=== PATIENT | male | born 1945 | race Caucasian/White ===

== ENCOUNTER 2018-09-04 02:04 | Outpatient (CLI) | payer OTHER, SELFPAY ==
[2018-09-04 11:43] LABS: ALT 40 U/L (12-78); AST 29 U/L (15-37); Albumin 3.7 g/dL (3.4-5.0); Alkaline Phosphatase 110 U/L (46-116); Anion Gap 9.2 mmol/L (3-11); BUN 21 mg/dL (7-18); CO2 30.8 mmol/L (21.0-32.0); CREATININE 1.15 mg/dL (0.70-1.30); Chloride 103 mmol/L (98-107); Cholesterol 133 mg/dL (50-200); Glucose 110 mg/dL (70-100); HDL Cholesterol 36 mg/dL (40-60); LDL CHOLESTEROL 83 mg/dL (<100); Potassium 3.6 mmol/L (3.5-5.1); Sodium 143 mmol/L (136-145); Total Protein 6.8 g/dL (6.4-8.2); Triglyceride 105 mg/dL (30-150)
== END 2018-09-04 02:24 ==
PROVIDERS: PCP Family Medicine; Visit Provider Family Medicine
DX: I10 Essential (primary) hypertension (principal); E78.00 Pure hypercholesterolemia, unspecified
CPT/HCPCS: 36415; 80053; 80061; 83721

== ENCOUNTER 2020-01-20 03:04 | Outpatient (CLI) | payer OTHER, SELFPAY ==
[2020-01-20 12:46] LABS: ALT 33 U/L (16-63); AST 23 U/L (15-37); Albumin 3.8 g/dL (3.4-5.0); Alkaline Phosphatase 69 U/L (46-116); Anion Gap 10.8 mmol/L (3-11); BUN 21 mg/dL (7-18); Bilirubin, Total 1.1 mg/dL (0.2-1.0); CO2 29.2 mmol/L (21.0-32.0); Calculated LDL 80 mg/dL (<100); Chloride 103 mmol/L (98-107); Cholesterol 144 mg/dL (<200); Estimated GFR 59.35 (mL/min/1.73m2); Glucose 111 mg/dL (74-106); HDL Cholesterol 33 mg/dL (40-60); Potassium 3.7 mmol/L (3.5-5.1); Sodium 143 mmol/L (136-145); Total Protein 6.7 g/dL (6.4-8.2); Triglyceride 155 mg/dL (<150)
== END 2020-01-20 03:24 ==
PROVIDERS: PCP Family Medicine; Visit Provider Family Medicine
DX: E78.5 Hyperlipidemia, unspecified (principal); I10 Essential (primary) hypertension; E87.6 Hypokalemia
CPT/HCPCS: 36415; 80053; 80061

== ENCOUNTER 2020-01-24 03:18 | Outpatient (CLI) | payer OTHER, SELFPAY ==
[2020-01-24 12:47] LABS: Hemoglobin A1C 5.8 % (3.8-5.6)
[2020-01-24 13:01] LABS: TSH (W/Ref FT4) 3.81 uIU/mL (0.36-3.74); Vitamin B12 301 pg/mL (193-986)
[2020-01-27 09:12] LABS: PSA, Diagnostic 1.4 ng/mL (0.0-6.5)
== END 2020-01-24 03:38 ==
PROVIDERS: PCP Family Medicine; Visit Provider Family Medicine
DX: E11.9 Type 2 diabetes mellitus without complications (principal); I10 Essential (primary) hypertension; G62.9 Polyneuropathy, unspecified; N40.0 Benign prostatic hyperplasia without lower urinary tract symptoms
CPT/HCPCS: 36415; 82607; 83036; 84153; 84439; 84443

== ENCOUNTER 2021-02-03 01:03 | Outpatient (CLI) | payer OTHER, SELFPAY ==
--- NOTE | 2021-02-03 08:30 | DI.RAD_ITS ---
Exam(s) XR KNEE RT 3V AP,LAT,NATALIE EXAM: XR KNEE RT 3V AP,LAT,NATALIE CLINICAL HISTORY: r knee pain, chronic, M25.569, G89.29. TECHNIQUE: 2D digital imaging was performed. COMPARISON: No exams were available for comparison FINDINGS: No evidence of fracture but there is a small joint effusion. There are advanced degenerative narrowi ng changes in the lateral compartment with [id number]. Moderate degenerative changes in the medial patellofemoral compartments. Vascular calcification noted. IMPRESSION: Degenerative changes, most advanced in the lateral compartment DATA REPOSITORY: RADIATION DOSE DELIVERED:
== END 2021-02-03 01:23 ==
PROVIDERS: PCP Family Medicine; Visit Provider Family Medicine
DX: G89.29 Other chronic pain (principal); M25.561 Pain in right knee; M17.11 Unilateral primary osteoarthritis, right knee
CPT/HCPCS: 73562

== ENCOUNTER 2021-03-10 03:22 | Outpatient (CLI) | payer MEDICARE, SELFPAY ==
[2021-03-10 13:08] LABS: Hemoglobin A1C 5.7 % (<5.7)
[2021-03-10 13:22] LABS: ALT 36 U/L (16-63); AST 24 U/L (15-37); Albumin 3.9 g/dL (3.4-5.0); Alkaline Phosphatase 69 U/L (46-116); Anion Gap 7.8 mmol/L (3-11); BUN 15 mg/dL (7-18); Bilirubin, Total 1.5 mg/dL (0.2-1.0); CO2 31.2 mmol/L (21.0-32.0); CREATININE 1.3 mg/dL (0.70-1.30); Calculated LDL 66 mg/dL (<100); Chloride 103 mmol/L (98-107); Cholesterol 129 mg/dL (<200); Estimated GFR 53.96 (mL/min/1.73m2); Glucose 108 mg/dL (74-106); HDL Cholesterol 34 mg/dL (40-60); Potassium 3.7 mmol/L (3.5-5.1); Sodium 142 mmol/L (136-145); TSH (W/Ref FT4) 2.75 uIU/mL (0.36-3.74); Total Protein 6.6 g/dL (6.4-8.2); Triglyceride 149 mg/dL (<150); Vitamin B12 300 pg/mL (193-986)
[2021-03-10 22:42] LABS: PSA, Diagnostic 1.4 ng/mL (0.0-6.5)
== END 2021-03-10 03:23 | disposition home or self-care (01) ==
PROVIDERS: PCP Family Medicine; Visit Provider Family Medicine
DX: E78.00 Pure hypercholesterolemia, unspecified; I10 Essential (primary) hypertension; G62.9 Polyneuropathy, unspecified; E11.9 Type 2 diabetes mellitus without complications; N40.0 Benign prostatic hyperplasia without lower urinary tract symptoms
CPT/HCPCS: 36415; 80053; 80061; 82607; 83036; 84153; 84443

== ENCOUNTER → 2021-03-12 02:32 | Outpatient (CLI) | payer OTHER, SELFPAY ==
--- NOTE | 2021-03-12 07:15 | DI.RAD_ITS ---
Exam(s) XR KNEE LT 3V AP,LAT,NATALIE EXAM: XR KNEE LT 3V AP,LAT,NATALIE CLINICAL HISTORY: left knee pain,M25.569. TECHNIQUE: 2D digital imaging was performed of the left knee. Four images were obtained. AP, later al, and PA tunnel views were obtained. COMPARISON: No previous for comparison. FINDINGS: BONES: No acute fracture is present. No bony destructive lesion is seen. There is a small enthesophy te at the superior patella. JOINTS: There is marked joint space narrowing of the femoral tibial joint with bone on bone in the me dial compartment. Periarticular osteophytes are seen in all 3 joint compartments. Subchondral scler osis and cysts are seen in the femoral tibial joint. No joint effusion is seen. SOFT TISSUE: Atherosclerosis. IMPRESSION: Marked osteoarthritis of the left knee. DATA REPOSITORY: RADIATION DOSE DELIVERED:
== END ==
PROVIDERS: PCP Family Medicine; Visit Provider Family Medicine
DX: G89.29 Other chronic pain (principal); M25.562 Pain in left knee; M17.12 Unilateral primary osteoarthritis, left knee
CPT/HCPCS: 73562

== ENCOUNTER 2021-03-26 10:48 | Outpatient (CLI) | payer MEDICARE, SELFPAY ==
--- NOTE | 2021-03-26 09:44 | DI.RAD_ITS ---
Exam(s) XR STANDING ALIGNMENT EXAM: XR STANDING ALIGNMENT CLINICAL HISTORY: TKA planning. TECHNIQUE: 2D digital imaging was performed. Standing AP views were performed from the pelvis throu gh the ankles. COMPARISON: No exams were available for comparison FINDINGS: BONES: No acute fracture is present. No bony destructive lesion is seen. JOINTS: Knees: There is severe narrowing of the medial femoral tibial joint with a [id number] appea eusebio of the left knee. There is also narrowing of the lateral femoral tibial joint and prominent pe riarticular spurring throughout. There is severe narrowing of the lateral femoral tibial joint of th e right knee. The smoothly marginated bony densities are noted beneath both malleoli. Screws left femoral neck. SOFT TISSUE: Normal. IMPRESSION: Severe degenerative changes of both knees, left greater than right. No significant leg length discre pancy. DATA REPOSITORY: RADIATION DOSE DELIVERED:
== END 2021-03-26 10:49 | disposition home or self-care (01) ==
LOC: DIORS 10:48
PROVIDERS: PCP Family Medicine; Referring Provider Family Medicine; Visit Provider Student in an Organized Health Care Education/Training Program
DX: M17.11 Unilateral primary osteoarthritis, right knee (principal); M17.12 Unilateral primary osteoarthritis, left knee
CPT/HCPCS: 99203; 77073

== ENCOUNTER 2021-04-15 01:51 | Outpatient (CLI) | payer MEDICARE, SELFPAY ==
--- NOTE | 2021-04-15 13:42 | DI.US_ITS ---
APPROVED REPORT EXAM: Comprehensive 2D, Doppler, and color-flow Echocardiogram Patient Location: Out-Patient [facility] [employer] Weighter: Sabina Rios RDCS (AE) Indications: Edema Other Information Study Quality: Adequate Conclusion Normal left ventricular wall thickness and chamber size. Estimated ejection fraction is 60 to 65%. Wall motion is normal Normal right ventricular size and systolic function Both atria are normal in size There is no structural or hemodynamically significant valvular disease Mildly dilated ascending aorta measuring 3.91 cm Estimated right ventricular systolic pressure is 32 mmHg Wall motion Left Ventricle The left ventricle is normal size. The left ventricular systolic function is normal. The left ventric ular ejection fraction is within the normal range. There is normal left ventricular wall thickness. T here is normal LV segmental wall motion. There is no ventricular septal defect visualized. LVEF is 60 -65%. Right Ventricle The right ventricle is normal size. The right ventricular systolic function is normal. The RVSP is 32 .3mmHg. Atria The left atrium size is normal. The right atrium size is normal. The interatrial septum is intact wit h no evidence for an atrial septal defect. Aortic Valve The aortic valve is normal in structure. Aortic valve is trileaflet. There is no aortic valvular sten osis. No aortic regurgitation is present. Mitral Valve The mitral valve is normal in structure. No evidence of mitral valve stenosis. Trace mitral regurgita tion. Tricuspid Valve The tricuspid valve is normal in structure. There is no tricuspid valve stenosis. Trace tricuspid reg urgitation. Pulmonic Valve The pulmonary valve is normal in structure. There is no pulmonic valvular stenosis. Trace pulmonic re gurgitation. Great Vessels The aortic root is normal in size. The ascending aorta is mildly dilated.3.91 cm Aortic arch is mac l in caliber. IVC is normal in size and collapses >50% with inspiration. Pericardium There is no pericardial effusion. 2D Dimensions IVSD d PLAX 1.17 cm M: 0.6-1.2 LV Vol A2C d MOD 122.3 mL LVPW d PLAX 1.15 cm M: 0.6 - 1.2 LV Vol A4C d MOD 127.8 mL LVID d PLAX 4.89 cm M: 4.2 - 5.8 LA vol/ BSA A4C s A-L 32.1 mL/m2 LVDs 3.35 cm M: 2.5 - 4.0 LA Area A4C s MOD 24.29 cm2 Ao Root d 3.77 cm M: 3.1 - 3.7 LV EF A4C MOD 60.5 % RA Area A4C 15.76 cm2 LV EF A2C MOD 61.3 % RA Vol/ BSA A4C s A-L 19.5 mL/m2 LV EF Biplane MOD 62.4 % Ao Asc Diam d 3.91 cm M: 2.6 - 3.4 SV 81.30 mL LV EF Teichholz 58.6 % SV Index 32.56 mL/m2 LVEF (Meza's) 62.35 % M: 52 - 72 LV Volume 91.30 mL M: 62 - 150 LV Volume Index 36.66 mL/m2 M: 34 - 74 LV Vol Biplane MOD 130.4 mL FS 31.00 % M-Mode TAPSE 2.59 cm (M/F) >1.7 LV Diastology MV E' medial 0.108 (>0.07 m/s) E/A Ratio 0.9 LV E/e MED 4.75 (<14) MV E Vmax 0.51 (0.4-1.3 m/s) MV E' lateral 0.096 (>0.1 m/s) MV A Vmax 0.60 (0.4-1.3 m/s) LV E/e LAT 5.30 (<14) MV E/A Ratio 0.83 MV E/E' medial 4.76 MV E/E' lateral 5.34 Aortic Valve LVOT Area 4.00 cm2 AoV Area Vmax 3.22 cm2 LVOT Vmax 0.99 m/s AoV Area/ BSA (Vmax) 1.29 cm2/m2 LVOT Mean Killian. 0.59 m/s ANGÉLICA Mean Killian. 2.68 cm2 LVOT Peak Grad 3.9 mmHg ANGÉLICA Mean Killian. Index 1.07 cm2/m2 LVOT Mean Grad 1.7 mmHg LVOT VTI 0.210 m LVOT Diam s 2.25 cm AoV Vmax 1.23 m/s Velocity Ratio 0.80 AoV Mean Killian. 0.88 m/s AoV Peak Grad 6.1 mmHg LVOT SV 84.17 mL AoV Mean Grad 3.4 mmHg AoV VTI 0.250 m AoV Area VTI 3.37 cm2 AoV Area/ BSA (VTI) 1.35 cm/m2 Mitral Valve MV DT 260 (160-240 msec) MV PHT 75 msec MV Area PHT 2.92 cm2 MV VTI 0.236 m MV Area VTI 3.56 (4.0-6.0 cm2) Pulmonary Valve PV Vmax 1.24 (0.5-1.5 m/s) RVOT Peak Gr. 2.32 mmHg PV Peak Grad 6.2 mmHg RVOT Mean Gr. 1.30 mmHg PV Mean Grad 3.2 mmHg RVOT VTI 0.142 m PV VTI 0.201 m RVOT Vmax 0.76 m/s Tricuspid Valve TR Peak Grad 29.2 mmHg TR Vmax 2.71 m/s RA Pressure 3.00 mmHg RVSP (TR) 32.3 mmHg
== END 2021-04-15 02:11 ==
PROVIDERS: PCP Family Medicine; Visit Provider Family Medicine
DX: R60.9 Edema, unspecified (principal); I77.810 Thoracic aortic ectasia
CPT/HCPCS: 93306

== ENCOUNTER 2021-05-26 13:50 | Outpatient (CLI) | payer MEDICARE, SELFPAY ==
--- NOTE | 2021-05-26 13:45 | DI.RAD_ITS ---
Exam(s) XR KNEE RT 1V EXAM: XR KNEE RT 1V CLINICAL HISTORY: pre op R TKA. TECHNIQUE: 2D digital imaging was performed. COMPARISON: CR XR STANDING ALIGNMENT from 03/26/2021 CR XR STANDING ALIGNMENT from 03/26/2021 FINDINGS: Single lateral right compared 03/26/2021 Significant narrowing the lateral compartment is noted. Moderate degenerative changes patellofemoral compartment. No fractures. No osseous lesions. Calcification is noted popliteal artery and runoff vessels of the calf. IMPRESSION: Degenerative changes. DATA REPOSITORY: RADIATION DOSE DELIVERED:
== END 2021-05-26 13:51 | disposition home or self-care (01) ==
LOC: DIORS 13:50
PROVIDERS: PCP Family Medicine; Referring Provider Family Medicine; Visit Provider Physician Assistant
DX: M17.11 Unilateral primary osteoarthritis, right knee (principal); Z01.818 Encounter for other preprocedural examination
CPT/HCPCS: 73560

== ENCOUNTER → 2021-05-27 12:08 | Outpatient (CLI) | payer MEDICARE, SELFPAY ==
--- NOTE | 2021-05-27 12:00 | DI.US_ITS ---
Exam(s) US LOWER EXTREMITY VENOUS RT EXAM: US LOWER EXTREMITY VENOUS RT CLINICAL HISTORY: r leg swelling EDEMA R60.9 TECHNIQUE: Grayscale, color, and doppler imaging of the deep venous system of the right lower extrem ity was performed. COMPARISON: FINDINGS: This is a positive abnormal study long length clot extending from just below the common femoral vein down to and including the popliteal vein. Below the popliteal vein calf veins appear patent. Greate r saphenous vein in the right thigh appears patent. Common femoral vein at the level of the groin ap pears patent. IMPRESSION: 1. Abnormal-positive study with long length intraluminal clot-DVT throughout the entire length of th e right femoral vein in the right thigh and extending into the ipsilateral popliteal vein. DATA REPOSITORY:
== END ==
PROVIDERS: PCP Family Medicine; Visit Provider Family Medicine
DX: I82.411 Acute embolism and thrombosis of right femoral vein; R60.0 Localized edema
CPT/HCPCS: 93971

== ENCOUNTER 2021-05-31 07:20 | Outpatient (CLI) | payer MEDICARE, SELFPAY ==
[2021-05-31 08:35] LABS: HCT 43.5 % (40.0-50.0); HGB 14.8 g/dL (13.5-17.5); MCH 31.6 pg (27.0-33.0); MCV 92.8 fL (80-95); MPV 9.2 fL (8.0-11.0); Platelet Count 258 10^3/uL (130-400); RBC 4.69 10^6/uL (4.36-5.78); RDW 12.7 % (11.8-14.1); RDW-SD 42.9 fL; WBC 7.26 10^3/uL (4.4-10.8)
[2021-05-31 09:21] LABS: Anion Gap 7.9 mmol/L (3-11); BUN 21 mg/dL (7-18); CO2 31.1 mmol/L (21.0-32.0); CREATININE 1.3 mg/dL (0.70-1.30); Chloride 104 mmol/L (98-107); Estimated GFR 53.96 (mL/min/1.73m2); Glucose 115 mg/dL (74-106); Potassium 3.5 mmol/L (3.5-5.1); Sodium 143 mmol/L (136-145)
[2021-05-31 16:56] LABS: INR 1.5 Ratio (0.9-1.1); PTT (UVM) 37 secs (26-37)
[2021-05-31 17:01] LABS: D-Dimer (UVM) 606 ng/mL DDU (<=230)
[2021-06-01 09:34] LABS: Antithrombin 3, Funct. 113 % (85-125)
[2021-06-01 09:40] LABS: Factor 8 Assay 221 % (50-150)
[2021-06-02 12:35] LABS: Protein C, Functional 101 % (71-199); Protein S, Functional 145 % (73-156)
[2021-06-02 20:51] LABS: Phospholipid Ab, IgG <9.4 GPL; Phospholipid Ab, IgM 10.6 MPL
[2021-06-03 12:48] LABS: Beta 2 GP1 Ab IgG <9.4 U/mL; Beta 2 GP1 Ab IgM 9.5 U/mL
[2021-06-03 13:10] LABS: Dilute Russell Viper Venom 90.9 secs (31.9-47.0); Silica Clotting Time 47.3 secs (30.2-48.4)
[2021-06-03 13:14] LABS: LA Confirm 92.9 secs (27.4-34.7)
[2021-06-03 13:16] LABS: LA Ratio 0.77 (<=1.16)
[2021-06-09 14:20] LABS: LA Cascade Summary (See Note)
== END 2021-05-31 07:21 | disposition home or self-care (01) ==
LOC: LBO 07:21
PROVIDERS: PCP Family Medicine; Visit Provider Student in an Organized Health Care Education/Training Program
DX: I82.401 Acute embolism and thrombosis of unspecified deep veins of right lower extremity (principal); M17.11 Unilateral primary osteoarthritis, right knee; Z01.818 Encounter for other preprocedural examination
CPT/HCPCS: 36415; 80048; 81240; 81241; 82784; 85027; 85300; 85303; 85306; 85610; 85613; 85730; 85732; 85240; 85379

== ENCOUNTER 2021-08-11 16:03 | Outpatient (CLI) | payer MEDICARE, SELFPAY ==
--- NOTE | 2021-08-11 16:00 | RT.EKG_ITS ---
APPROVED REPORT Exam: Resting ECG Reason for Exam: [facility] Patient Location: O HR:90 bpm ECG Measurements Heart Rate 90 AXIS PA 165 P 77 QRSd 89 QRS 30 QT 370 T -1 QTc 453 Conclusion Sinus rhythm...normal P axis, V-rate 60- 99 Atrial premature complexes...SV complexes w/ short R-R intvls
== END 2021-08-11 16:04 | disposition home or self-care (01) ==
LOC: DI.CM 16:04
PROVIDERS: PCP Family Medicine; Visit Provider Physician Assistant
DX: R05.9 Cough, unspecified (principal); R94.31 Abnormal electrocardiogram [ECG] [EKG]
CPT/HCPCS: 93010

== ENCOUNTER 2021-08-11 18:09 | Outpatient (CLI) | payer MEDICARE, SELFPAY ==
--- NOTE | 2021-08-11 16:30 | DI.CT_ITS ---
Exam(s) CT CHEST PE CTA EXAM: CT CHEST PE CTA CLINICAL HISTORY: SOB, cough, ZHAO R05.9. TECHNIQUE: Imaging Protocol: Axial CT angiography was performed with multi-slice acquisition and mu lti-planar and/or 3D reconstructions. CONTRAST MATERIAL: Intravenous: Omnipaque 350 Contrast volume:100 cc COMPARISON: None FINDINGS: Exam mildly limited by patient motion. Pulmonary Arteries: No evidence of filling defect to suggest pulmonary emboli. Distal branches not we ll evaluated due to motion. Mediastinum and Stephanie: No dominant adenopathy or fluid collection. Small hiatal hernia. Pulmonary parenchyma: Complete consolidation is well as atelectasis of the right upper lobe. Air bro nchograms. no discrete mass is visible however mass is not excluded. Right upper lobe bronchus don ears obstructed.. Minimal infiltrates right lower lobe. Pleura: No effusion or pneumothorax. Heart: The heart is mildly dilated. Moderate coronary artery calcifications. Calcification in the l eft ventricular apex. Aorta: Ascending aorta 3.9 cm.. No aneurysm. No dissection. Atherosclerotic changes. Upper abdomen: Unremarkable. Bones: Bilateral shoulder prostheses. Mild degenerative changes of the spine. IMPRESSION: Consolidation and atelectasis of the right upper lobe. Obstruction of the right upper lobe bronchus. Mass not excluded. No evidence of pulmonary embolism. RADIATION DOSE DELIVERED: 546.44mGy.cm Total DLP DATA REPOSITORY: All CT scans at this facility are submitted to the National Radiology Data Registry (NRDR) Dose Index Registry (DIR) with the [employer] (ACR). RADIATION OPTIMIZATION: All CT scans at this facility use at least one of these dose optimization te chniques: automated exposure control; mA and/or kV adjustment per patient size (includes targeted exa ms where dose is matched to clinical indication); or iterative reconstruction.
[2021-08-11 17:30] LABS: Abs Immature Grans 0.07 10^3/uL (0.0-0.06); Absolute Basophil Count 0.05 10^3/uL (0.0-0.2); Absolute Eosinophil Count 0.02 10^3/uL (0.0-0.7); Basophils % 0.3; Eosinophils % 0.1; HCT 36.2 % (40.0-50.0); HGB 12.1 g/dL (13.5-17.5); Immature Grans % 0.4; Lymphocytes % 6.5; MCH 30.5 pg (27.0-33.0); MCHC 33.4 % (32.0-36.0); MCV 91.2 fL (80-95); MPV 8.5 fL (8.0-11.0); Monocytes % 8.3; Neutrophils % 84.4; Nucleated RBC 0 %; Platelet Count 399 10^3/uL (130-400); RBC 3.97 10^6/uL (4.36-5.78); RDW 12.3 % (11.8-14.1); RDW-SD 41.4 fL; WBC 15.81 10^3/uL (4.4-10.8)
[2021-08-11 17:32] LABS: Absolute Lymphocyte Count 1.03 10^3/uL (1.2-3.4); Absolute Monocyte Count 1.31 10^3/uL (0.1-0.8); Absolute Neutrophil Count 13.34 10^3/uL (1.2-6.7)
[2021-08-11 17:41] LABS: ALT 73 U/L (16-63); AST 64 U/L (15-37); Albumin 2.6 g/dL (3.4-5.0); Alkaline Phosphatase 103 U/L (46-116); Anion Gap 9.6 mmol/L (3-11); BUN 21 mg/dL (7-18); CO2 28.4 mmol/L (21.0-32.0); CREATININE 1.4 mg/dL (0.70-1.30); Calcium 8.9 mg/dL (8.5-10.1); Chloride 99 mmol/L (98-107); Estimated GFR 49.54 (mL/min/1.73m2); Glucose 127 mg/dL (74-106); Potassium 3.8 mmol/L (3.5-5.1); Sodium 137 mmol/L (136-145); Total Protein 7.3 g/dL (6.4-8.2)
[2021-08-11] MEDS: Omnipaque 350 MG/ML 100 ML BTL IJ (18:07)
--- NOTE | 2021-08-11 18:49 | DI.VRAD_ITS ---
PROCEDURE INFORMATION: Exam: CTA Chest With Contrast Exam date and time: 08/11/2021 4:42 PM Age: 75 years old Clinical indication: Cough and dyspnea; Patient HX: Recent dx dvt; Additional info: SOB, cough TECHNIQUE: Imaging protocol: Computed tomographic angiography of the chest with contrast. 3D rendering (Not supervised by radiologist): MIP and/or 3D reconstructed images were created by the technologist. Radiation optimization: All CT scans at this facility use at least one of these dose optimization techniques: automated exposure control; mA and/or kV adjustment per patient size (includes targeted exams where dose is matched to clinical indication); or iterative reconstruction. Contrast material: OMNI 350; Contrast volume: 100 ml; Contrast route: INTRAVENOUS (IV); COMPARISON: No relevant prior studies available. FINDINGS: Limitations: Evaluation of the distal pulmonary arterial branches is limited by motion. Pulmonary arteries: No pulmonary emboli within the main pulmonary arteries or proximal through mid segmental branches. Distal segmental branches are obscured by motion. Aorta: Ectatic ascending thoracic aorta measuring 3.9 cm in greatest dimension. Other arteries: Mild aortic calcific atherosclerotic disease. No acute pathology to the aorta. Lungs: Obstruction of the right upper lobar bronchus (image 204 series 8 and image 70 series 9). Segment of obstruction measures approximately 2 cm x 2 cm. Complete consolidation of the right upper lobe. Air bronchograms in the right upper lobe. Right middle lobe is clear. Right lower lobe is clear. Left lung is clear. Pleural spaces: Unremarkable. No pneumothorax. No pleural effusion. Heart: Moderate coronary artery calcific atherosclerotic disease. Mild cardiomegaly. Normal pericardium. Punctate calcification in the left ventricular apex, likely of chronic etiology and perhaps related to prior myocardial infarction. Lymph nodes: Unremarkable. No enlarged lymph nodes. Diaphragm: Small hiatal hernia. Bones/joints: Bilateral shoulder arthroplasties partially visualized. No acute fracture or aggressive osseous lesion. Mild degenerative changes of the spine. Soft tissues: Unremarkable. Other findings: No acute upper abdominal findings. IMPRESSION: 1. Obstruction to the proximal segment of the right upper lobar bronchus. Differential would include mucoid obstruction versus endobronchial lesion. 2. Complete consolidation of the right upper lobe, compatible with a combination of atelectasis and superimposed infectious pneumonia. 3. No large pulmonary emboli within the main pulmonary arteries or proximal segmental branches. Distal segmental branches obscured by respiratory motion. Dictated and Authenticated by: Parveen Arora MD. Ordering:PEDRITO Gomez MD
== END 2021-08-11 18:29 ==
LOC: DI 18:10
PROVIDERS: PCP Family Medicine; Visit Provider Physician Assistant
DX: R05.8 Other specified cough (principal); R06.02 Shortness of breath; R91.8 Other nonspecific abnormal finding of lung field; J98.11 Atelectasis
CPT/HCPCS: 36415; 71275; 80048; 80053; 85025; J3490

== ENCOUNTER 2021-08-11 19:16 | Inpatient (IN) | payer MEDICARE, SELFPAY ==
[2021-08-11] VITALS (17 sets, daily range): BP systolic 118–130; BP diastolic 61–77; PULSE 65–86; RESP 14–24; TEMP 36.8–37.2; O2SAT 92–95
--- NOTE | 2021-08-11 20:00 | RT.EKG_ITS ---
APPROVED REPORT Exam: Resting ECG Reason for Exam: SOB Patient Location: E HR:76 bpm ECG Measurements Heart Rate 76 AXIS WV 179 P 58 QRSd 86 QRS 12 QT 416 T 9 QTc 466 Conclusion Sinus rhythm...normal P axis, V-rate 60- 99 Atrial premature complexes...SV complexes w/ short R-R intvls Low voltage, precordial leads...precordial leads <1.0mV sinus rhythm, normal axis, non ischemic
--- NOTE | 2021-08-11 20:37 | W.ED.GENAD ---
Discharge Plan Disposition Patient Disposition: HOME Discharge Details Chief Complaint: SOB Clinical Impression: Consolidation of right upper lobe of lung, Leukocytosis Primary Care Provider: Unknown,Unknown ED Provider: Jon Cole Home Meds and New Rx's Prescriptions: No Action Eliquis 5 mg tablet 5 mg PO BID Qty: 180 5RF aspirin [Aspir-81] 81 MG tablet,delayed release (DR/EC) 81 mg PO DAILY 0RF calcium carbonate [Caltrate 600] 600 MG tablet 600 mg PO DAILY 0RF Rx Instructions: REPORTS TAKING 1.5GM TAB DAILY. chlorthalidone 25 mg tablet 25 mg PO DAILY Qty: 90 4RF folic acid 1 mg tablet 1 mg PO DAILY Qty: 100 12RF losartan [Cozaar] 100 mg tablet 100 mg PO DAILY Qty: 90 4RF metoprolol succinate 100 mg tablet extended release 24 hr 100 mg PO DAILY Qty: 90 5RF Rx Instructions: in place of atenolol Eliquis DVT-PE Treat 30D Start 5 mg (74 tabs) tablets,dose pack 5 mg PO ONCE Qty: 74 0RF potassium chloride [Klor-Con M20] 20 mEq tablet,ER particles/crystals See Rx Instructions .ROUTE .COMPLEX Qty: 90 3RF Dose Instruction: TAKE 1 TABLET DAILY Rx Instructions: TAKE 1 TABLET DAILY atorvastatin 20 mg tablet 20 mg PO DAILY Qty: 90 4RF Medical Decision Making 75-year-old male history of hypertension hyperlipidemia DVT on anticoagulation presents from urgent care for evaluation of abnormal CT. Found to have obstruction of the proximal segment of the right upper lobar bronchus complete consolidation of right upper lobe atelectasis versus superimposed infection, afebrile nontoxic not hypoxic no respiratory distress. Consider mucous plugging versus bronchial mass versus pneumonia. Unable to obtain labs from urgent care, will repeat CBC CMP, pending labs reassessment symptomatology consider home with empiric antibiotic versus admission for more urgent bronchoscopy. Patient stable endorses he would feel safe going home if that is an option. Rest comfortably no acute distress no respiratory stress not hypoxic. Given degree of right upper lobe involvement patient be admitted for empiric antibiotics, consideration of bronchoscopy. Will start on ceftriaxone and azithromycin. HPI General Date/Time Provider Initiated Documentation: 08/11/21 20:04. HPI Narrative: 75-year-old male history of hypertension hyper lipidemia, referred in by urgent care for evaluation of abnormal chest CT, patient been having a cough nonproductive feeling low energy over the past several days, was found to have likely obstruction of his right upper bronchus with either atelectasis or infiltrate of the right upper lobe, patient is afebrile nontoxic no respiratory distress denies chest pain nausea vomiting or trouble breathing. Does have a history of DVT is on anticoagulation and compliant. Related Data Home Medications Medication Instructions Recorded Confirmed aspirin 81 mg tablet,delayed 81 mg PO DAILY tab-cap 11/26/12 05/31/21 release (Aspir-) calcium carbonate 600 mg calcium 600 mg PO DAILY tab 11/26/12 05/31/21 (1,500 mg) tablet (Caltrate 600) chlorthalidone 25 mg tablet 25 mg PO DAILY #90 tab-cap 07/24/20 08/11/21 folic acid 1 mg tablet 1 mg PO DAILY #100 tab-cap 07/24/20 08/11/21 losartan 100 mg tablet (Cozaar) 100 mg PO DAILY #90 tab-cap 07/24/20 08/11/21 metoprolol succinate 100 mg 100 mg PO DAILY #90 tab 07/24/20 08/11/21 tablet,extended release 24 hr apixaban 5 mg (74 tabs) tablets in 5 mg PO ONCE #74 dose pk 05/27/21 05/31/21 a dose pack (Eliquis DVT-PE Treat 30D Start) apixaban 5 mg tablet (Eliquis) 5 mg PO BID #180 tab 05/31/21 08/11/21 potassium chloride 20 mEq See Rx Instructions .ROUTE 07/26/21 08/11/21 tablet,extended .COMPLEX #90 tablet release(part/cryst) (Klor-Con M) atorvastatin 20 mg tablet 20 mg PO DAILY #90 tab 08/04/21 08/11/21 Previous Rx's Medication Instructions Recorded chlorthalidone 25 mg tablet 25 mg PO DAILY #90 tab-cap 07/24/20 folic acid 1 mg tablet 1 mg PO DAILY #100 tab-cap 07/24/20 losartan 100 mg tablet (Cozaar) 100 mg PO DAILY #90 tab-cap 07/24/20 metoprolol succinate 100 mg 100 mg PO DAILY #90 tab 07/24/20 tablet,extended release 24 hr apixaban 5 mg (74 tabs) tablets in 5 mg PO ONCE #74 dose pk 05/27/21 a dose pack (Eliquis DVT-PE Treat 30D Start) apixaban 5 mg tablet (Eliquis) 5 mg PO BID #180 tab 05/31/21 potassium chloride 20 mEq See Rx Instructions .ROUTE 07/26/21 tablet,extended .COMPLEX #90 tablet release(part/cryst) (Klor-Con M) atorvastatin 20 mg tablet 20 mg PO DAILY #90 tab 08/04/21 Allergies Allergy/AdvReac Type Severity Reaction Status Date / Time No Known Allergies Allergy Verified 08/11/21 21:24 General Stated Complaint: SOB INDRA: 3 Review of Systems Narrative: Review of Systems Constitutional: Fatigue Eyes: negative ENT: negative Cardiovascular: negative Respiratory: Cough Gastrointestinal: negative : negative Musculoskeletal: negative Skin: negative Neurologic: negative Psych: negative PFSH All Active Problems (Updated 08/11/21 @ 22:24 by Jon Cole MD) Consolidation of right upper lobe of lung (Acute) Leukocytosis (Acute) DVT (deep venous thrombosis) (Chronic) Cellulitis (Acute) Leg edema, right (Acute) Primary osteoarthritis of right knee (Chronic) Primary osteoarthritis of left knee (Acute) Edema (Acute) BPH (benign prostatic hyperplasia) (Chronic) Polyneuropathy (Acute) Arthritis (Acute) Chronic left shoulder pain (Acute 08/11/15) Prostatitis (Acute) Tubular adenoma (Chronic 10/20/15) Osteopenia (Chronic 05/11/03) -1.1/-0.3/0.1 Male erectile disorder (Chronic) Hypercholesterolemia (Chronic 09/06/16) Essential hypertension (Chronic 07/31/13) Actinic keratoses (Chronic 09/07/17) Medical History (Updated 08/11/21 @ 22:24 by Jon Cole MD) Abnormal endocrine laboratory test finding Abnormal laboratory test elevated MCV Acute bilateral low back pain 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), electrolyte disorder associated w/alcohol Arthritis Chronic left shoulder pain 08/11/15 Essential hypertension Folate deficiency Hypokalemia 11/15/16 Kidney stone Male erectile disorder Osteopenia Prostatitis in the past Shoulder pain 08/01/13 replacement 11/2014 Surgical History (Updated 05/26/21 @ 14:15 by Samara Fernando) ankle repair R ANKLE RECONSTRUCTION Closed fracture of unspecified part of neck of femur 05/11/03 left femoral neck fracture [facility] [place] Colonoscopy - MAC (~2005) neg Rotator Cuff Repair RIGHT SHOULDER-VIKAS CAP LEFT SHOULDER-VIKAS CAP 11/26 Status post hernia repair right inguinal hernia ~20s Family History Maternal Grandfather Heart disease Cancer Mother , AGE 84 Essential hypertension GI cancer Father , AGE 69 Essential hypertension Heart disease Myocardial infarction Brother No problems noted. Paternal Grandfather , AGE 85 Heart disease Maternal Grandmother , AGE 93 Neoplasm Paternal Grandmother Neoplasm Brother No problems noted. Brother No problems noted. Son No problems noted. Daughter No problems noted. Daughter No problems noted. Social History (Updated 05/26/21 @ 14:16 by Samara Fernando) Smoking/Tobacco Use Status: Never Second Hand Exposure: No Smoking risk assessment performed?: Yes Alcohol Intake: former Drug use: Never Substance use type: does not use Caregiver/Support person: No Household members: spouse Housing: house Communication Needs: Hard of Hearing and Corrective Lenses Do you need help understanding health information?: Rarely current occupation: [employer] Pets and animals: No Sexually active: Yes Do you think of yourself as: straight/heterosexual Current gender identity: male What is your relationship status?: How often do you talk on the phone with friends or family?: three or more times per week How often do you get together with friends or relatives?: three or more times per week How often do you attend amish or alevism services?: decline to answer Do you belong to any clubs or organized social groups?: yes Panel score (0-1 are the most socially isolated patients): 3 What type of physical activity do you participate in: walking Duration: < 15 minutes/day Frequency: 1-2 times per week Taylor/Hindu: Adventist Special taylor needs: No Seatbelt use: always Helmet use: No Drive intox or ride w/intox local owner operator truck driver: No Do you feel safe at home: Yes Do you feel safe in your relationship?: Yes Exam Narrative Exam Narrative: Physical Examination General: alert, awake, cooperative, resting comfortably, no acute distress HEENT: normocephalic, atraumatic; PERRL, EOM intact, conjunctiva normal; no nasal discharge; moist mucous membranes, oral and pharyngeal mucosa normal, tolerating secretions Neck: supple, trachea midline; full ROM Chest: normal to inspection Respiratory: normal respiratory effort, speaking in full sentences, clear to auscultation, no wheezing, rales or rhonchi Cardiac: regular rate, regular rhythm, S1S2 intact, no murmurs rubs or gallops GI: abdomen soft, non-tender, non-distended; no palpable mass or hepatosplenomegaly Skin: no lesions, rashes or trauma appreciated Neuro: AAOx3, normal speech, moving all extremities Extremities: No peripheral edema Psych: Appropriate mood and affect Course Vital Signs Vital signs: Vital Signs Temperature 36.8 C 08/11/21 19:57 Pulse 86 08/11/21 19:57 Respiratory Rate 14 08/11/21 19:57 Blood Pressure 130/77 08/11/21 19:57 Pulse Oximetry 92 08/11/21 19:57 Temperature 36.8 C 08/11/21 19:57 Temperature Source Oral 08/11/21 19:57 Pulse 86 08/11/21 19:57 Respiratory Rate 14 08/11/21 19:57 Respiratory Effort Non-Labored 08/11/21 19:57 Respiratory Depth Normal 08/11/21 19:43 Respiratory Pattern Normal 08/11/21 19:43 Blood Pressure 130/77 08/11/21 19:57 Blood Pressure Position Sitting 08/11/21 19:57 Pulse Oximetry 92 08/11/21 19:57 Oxygen Delivery Method Room Air 08/11/21 19:57 Oxygen Flow Rate 0 08/11/21 19:57 Pain Level 0 08/11/21 19:57 Lab/Test Results Lab/Test Results: Laboratory Tests Range/Units 08/11/21 08/11/21 20:03 23:03 Magnesium Cancelled Troponin I Cancelled Cancelled
[2021-08-11 20:48] LABS: Abs Immature Grans 0.08 10^3/uL (0.0-0.06); Absolute Basophil Count 0.05 10^3/uL (0.0-0.2); Absolute Eosinophil Count 0.02 10^3/uL (0.0-0.7); Absolute Lymphocyte Count 1.62 10^3/uL (1.2-3.4); Absolute Monocyte Count 1.45 10^3/uL (0.1-0.8); Absolute Neutrophil Count 13.84 10^3/uL (1.2-6.7); Basophils % 0.3; Eosinophils % 0.1; HCT 35.9 % (40.0-50.0); HGB 11.8 g/dL (13.5-17.5); Immature Grans % 0.5; Lymphocytes % 9.5; MCH 30.2 pg (27.0-33.0); MCHC 32.9 % (32.0-36.0); MCV 91.8 fL (80-95); MPV 8.7 fL (8.0-11.0); Monocytes % 8.5; Neutrophils % 81.1; Nucleated RBC 0 %; Platelet Count 384 10^3/uL (130-400); RBC 3.91 10^6/uL (4.36-5.78); RDW 12.4 % (11.8-14.1); RDW-SD 41.4 fL; WBC 17.07 10^3/uL (4.4-10.8)
[2021-08-11 20:59] LABS: ALT 66 U/L (16-63); AST 55 U/L (15-37); Albumin 2.6 g/dL (3.4-5.0); Alkaline Phosphatase 98 U/L (46-116); Anion Gap 10.2 mmol/L (3-11); BUN 19 mg/dL (7-18); CO2 25.8 mmol/L (21.0-32.0); CREATININE 1.3 mg/dL (0.70-1.30); Calcium 8.8 mg/dL (8.5-10.1); Chloride 99 mmol/L (98-107); Estimated GFR 53.96 (mL/min/1.73m2); Glucose 118 mg/dL (74-106); Potassium 3.5 mmol/L (3.5-5.1); Sodium 135 mmol/L (136-145)
[2021-08-11] MEDS: cefTRIAXone 1 GM/50 ML BAG IVPB (22:56)
[2021-08-11 23:08] LABS: Source Nasal/Nares
[2021-08-11] MEDS: AZITHROMYCIN 500 MG in Normal Saline 250 ML 250 MG IVPB (23:34)
[2021-08-11] MEDS: Normal Saline Flush 10 ML SYR IVP (23:34)
[2021-08-12] VITALS (14 sets, daily range): BP systolic 100–130; BP diastolic 63–76; PULSE 57–77; RESP 1–20; TEMP 36–38.2; O2SAT 91–97
--- NOTE | 2021-08-12 00:41 | W.PM.HP.N ---
Date of service: 08/12/21 Time of Service: 00:42 Assessment and Plan Assessment and plan (1) Consolidation of right upper lobe of lung: Status: Acute Assessment and plan: This may be pneumonia with mucous plugging of his right upper lobe bronchus. However if this does not improve with bronchodilators and mucolytic's and antibiotics he will need bronchoscopy to rule out obstructive tumor. He will remain on Rocephin and azithromycin. I have added Mucinex. Consider use of Mucomyst. I will put her on scheduled DuoNeb treatments and give him an Acapella and incentive spirometer. We will attempt to obtain sputum culture for Gram stain and bacterial culture as well as for mycoplasma PCR. I have ordered a urine strep antigen and Legionella antigen. We will request a pulmonary consult. If the electric furnace operator is not available we will contact her to arrange outpatient follow-up. (2) DVT (deep venous thrombosis): Status: Chronic Assessment and plan: Patient with recently diagnosed DVT of the right leg. He has been on apixaban since around [place]. He is supposed to stay on this for a minimum of 3 months. Continue current home dose of apixaban 5 mg twice daily. (3) Essential hypertension: Status: Chronic Assessment and plan: Stable blood pressure continue Toprol-XL and losartan chlorthalidone with potassium supplementation History of Present Illness Narrative: 75-year-old male with history of hypertension, hyperlipidemia, recent DVT of his right leg currently anticoagulated with apixaban, DJD of his knees who is a non-smoker presents emergency department with progressive dyspnea over the last 2 weeks not associated with any chest tightness. No associated fever, chills, rigors. Cough is minimally productive of clear to white mucus. Patient presented to urgent care and was referred to the emergency department after an abnormal CT scan that showed near complete opacification was right upper lobe. Evaluation in the ER by the ER physician reveals that the patient is not tachycardic not hypertensive and not hypoxemic. The ER physician called me for consultation on the patient regarding admission versus outpatient antibiotic treatment and outpatient referral for bronchoscopy. I reviewed the CT scan and felt that the patient be better served by initially being treated with bronchodilators and parenteral antibiotics. Her electric furnace operator usually is not in the hospital on therefore she would not be available to see him tomorrow as an inpatient but perhaps tomorrow we could text to her call her and discuss further management. Thank if the patient does well with antibiotics and has no respiratory deterioration he can be discharged home on oral antibiotics and mucolytic's and bronchodilators and be followed by the electric furnace operator for an outpatient bronchoscopy. Patient denies any change in appetite change in sense of taste or smell has had no known exposures to Covid. He is fully vaccinated with 2 shot vaccine as well as a booster vaccine. He has never been a smoker and has no known chronic lung disease. 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 Treat emergency department included ceftriaxone 1 g IV and azithromycin 5 mg IV. Review of Systems All systems reviewed & are unremarkable except as noted in HPI and below PFSH All Active Problems Consolidation of right upper lobe of lung (Acute) Leukocytosis (Acute) DVT (deep venous thrombosis) (Chronic) Cellulitis (Acute) Leg edema, right (Acute) Primary osteoarthritis of right knee (Chronic) Primary osteoarthritis of left knee (Acute) Edema (Acute) BPH (benign prostatic hyperplasia) (Chronic) Polyneuropathy (Acute) Arthritis (Acute) Chronic left shoulder pain (Acute 08/11/15) Prostatitis (Acute) Tubular adenoma (Chronic 10/20/15) Osteopenia (Chronic 05/11/03) -1.1/-0.3/0.1 Male erectile disorder (Chronic) Hypercholesterolemia (Chronic 09/06/16) Essential hypertension (Chronic 07/31/13) Actinic keratoses (Chronic 09/07/17) Medical History Abnormal endocrine laboratory test finding Abnormal laboratory test elevated MCV Acute bilateral low back pain 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), electrolyte disorder associated w/alcohol Arthritis Chronic left shoulder pain 08/11/15 Essential hypertension Folate deficiency Hypokalemia 11/15/16 Kidney stone Male erectile disorder Osteopenia Prostatitis in the past Shoulder pain 08/01/13 replacement 11/2014 Surgical History ankle repair R ANKLE RECONSTRUCTION Closed fracture of unspecified part of neck of femur 05/11/03 left femoral neck fracture [facility] [place] - MAC (~2005) neg Rotator Cuff Repair RIGHT SHOULDER-VIKAS CAP LEFT SHOULDER-VIKAS CAP 11/26 Status post hernia repair right inguinal hernia ~20s Family History Maternal Grandfather Heart disease Cancer Mother , AGE 84 Essential hypertension GI cancer Father , AGE 69 Essential hypertension Heart disease Myocardial infarction Brother No problems noted. Paternal Grandfather , AGE 85 Heart disease Maternal Grandmother , AGE 93 Neoplasm Paternal Grandmother Neoplasm Brother No problems noted. Brother No problems noted. Son No problems noted. Daughter No problems noted. Daughter No problems noted. Social History Smoking/Tobacco Use Status: Never Second Hand Exposure: No Smoking risk assessment performed?: Yes Alcohol Intake: former Drug use: Never Substance use type: does not use Caregiver/Support person: No Household members: spouse Housing: house Communication Needs: Hard of Hearing and Corrective Lenses Do you need help understanding health information?: Rarely current occupation: [employer] Pets and animals: No Sexually active: Yes Do you think of yourself as: straight/heterosexual Current gender identity: male What is your relationship status?: How often do you talk on the phone with friends or family?: three or more times per week How often do you get together with friends or relatives?: three or more times per week How often do you attend samaritan or latter-day services?: decline to answer Do you belong to any clubs or organized social groups?: yes Panel score (0-1 are the most socially isolated patients): 3 What type of physical activity do you participate in: walking Duration: < 15 minutes/day Frequency: 1-2 times per week Taylor/Baptist: Mormon Special taylor needs: No Seatbelt use: always Helmet use: No Drive intox or ride w/intox residential driver: No Do you feel safe at home: Yes Do you feel safe in your relationship?: Yes Meds Allergies and Home Medications Allergies Allergy/AdvReac Type Severity Reaction Status Date / Time No Known Allergies Allergy Verified 08/11/21 21:24 Home Medications Medication Instructions Recorded Confirmed Type aspirin 81 mg tablet,delayed 81 mg PO DAILY tab-cap 11/26/12 05/31/21 History release (Aspir-) calcium carbonate 600 mg calcium 600 mg PO DAILY tab 11/26/12 05/31/21 History (1,500 mg) tablet (Caltrate 600) chlorthalidone 25 mg tablet 25 mg PO DAILY #90 tab-cap 07/24/20 08/11/21 Rx folic acid 1 mg tablet 1 mg PO DAILY #100 tab-cap 07/24/20 08/11/21 Rx losartan 100 mg tablet (Cozaar) 100 mg PO DAILY #90 tab-cap 07/24/20 08/11/21 Rx metoprolol succinate 100 mg 100 mg PO DAILY #90 tab 07/24/20 08/11/21 Rx tablet,extended release 24 hr apixaban 5 mg (74 tabs) tablets in 5 mg PO ONCE #74 dose pk 05/27/21 05/31/21 Rx a dose pack (Eliquis DVT-PE Treat 30D Start) apixaban 5 mg tablet (Eliquis) 5 mg PO BID #180 tab 05/31/21 08/11/21 Rx potassium chloride 20 mEq See Rx Instructions .ROUTE 07/26/21 08/11/21 Rx tablet,extended .COMPLEX #90 tablet release(part/cryst) (Klor-Con M) atorvastatin 20 mg tablet 20 mg PO DAILY #90 tab 08/04/21 08/11/21 Rx Exam Narrative Exam Narrative: Obese male lying in bed in no acute distress with a dry cough but after a paroxysm of coughing he did bring up some thick greenish mucus. HEENT is remarkable for full upper dentures and partial lower dentures. Neck is supple nontender no JVD normal carotid pulses no bruits Lungs with diffuse expiratory wheezes with diminished breath sounds in the right upper lung field. Heart is regular rate and rhythm without murmur rub or gallop Abdomen is obese soft and nontender no organomegaly no bruits no palpable masses Lower extremities and remarkable for arthritic changes of his knees and previous surgery on his right ankle. He has normal pedal pulses. No calf tenderness or swelling no thigh tenderness or swelling Results Labs Result diagrams: 08/11/21 20:15 08/11/21 20:15 Labs: Laboratory Results - last 24 hr 08/11/21 08/11/21 08/11/21 20:03 20:15 20:15 WBC 17.07 H RBC 3.91 L Hgb 11.8 L Hct 35.9 L MCV 91.8 MCH 30.2 MCHC 32.9 RDW 12.4 Plt Count 384 MPV 8.7 Immature Gran % 0.5 Neutrophils % 81.1 Lymphocytes % 9.5 Monocytes % 8.5 Eosinophils % 0.1 Basophils % 0.3 Nucleated RBC % 0 Absolute Neutrophils 13.84 H Absolute Lymphocytes 1.62 Absolute Monocytes 1.45 H Absolute Eosinophils 0.02 Absolute Basophils 0.05 Sodium 135 L Potassium 3.5 Chloride 99 Carbon Dioxide 25.8 Anion Gap 10.2 BUN 19 H Creatinine 1.3 Estimated GFR/1.73 m2 53.96 Glucose 118 H Calcium 8.8 Magnesium Cancelled Total Bilirubin 1.0 AST 55 H ALT 66 H Alkaline Phosphatase 98 Troponin I Cancelled Total Protein 7.0 Albumin 2.6 L COVID-19 Source 08/11/21 08/11/21 23:03 23:05 WBC RBC Hgb Hct MCV MCH MCHC RDW Plt Count MPV Immature Gran % Neutrophils % Lymphocytes % Monocytes % Eosinophils % Basophils % Nucleated RBC % Absolute Neutrophils Absolute Lymphocytes Absolute Monocytes Absolute Eosinophils Absolute Basophils Sodium Potassium Chloride Carbon Dioxide Anion Gap BUN Creatinine Estimated GFR/1.73 m2 Glucose Calcium Magnesium Total Bilirubin AST ALT Alkaline Phosphatase Troponin I Cancelled Total Protein Albumin COVID-19 Source Nasal/Nares Last Vital Signs Temp 37.4 C 08/12/21 00:12 Pulse 77 08/12/21 00:12 Resp 16 08/12/21 00:12 BP 124/63 08/12/21 00:12 Pulse Ox 96 08/12/21 00:12
[2021-08-12] MEDS: Normal Saline Flush 10 ML SYR IVP ×3 (00:47→20:40)
[2021-08-12] MEDS: guaiFENesin 600 MG TABCR 1200 MG PO ×3 (01:32→20:40)
[2021-08-12] MEDS: Acetaminophen 500 MG TAB 1000 MG PO (03:46)
[2021-08-12 04:25] LABS: C-Reactive Protein 16.75 mg/dL (0.0-0.3)
[2021-08-12 05:18] LABS: Procalcitonin 1.2 ng/mL
[2021-08-12] MEDS: Albuterol/Ipratropium 3 ML UPD VIAL UPD ×4 (08:33→20:39)
[2021-08-12] MEDS: Metoprolol CR 100 MG TABCR PO (08:34)
[2021-08-12] MEDS: Aspirin E.C. 81 MG TABEC PO (08:34)
[2021-08-12] MEDS: Chlorthalidone 25 MG TAB PO (08:34)
[2021-08-12] MEDS: Calcium Carbonate 1.5 GM TAB PO (08:35)
[2021-08-12] MEDS: Apixaban 5 MG TAB PO ×2 (08:35→20:40)
[2021-08-12] MEDS: Folic Acid 1 MG TAB PO (08:35)
[2021-08-12] MEDS: Potassium Chloride 10 MEQ CAPCR 20 MEQ PO (08:35)
[2021-08-12] MEDS: Losartan 50 MG TAB 100 MG PO (08:35)
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
--- NOTE | 2021-08-12 09:11 | RESPIRATORY ---
sPUTUM CUP GIVEN AND INSTRUCTION GIVEN TO PT. PT INSTRUCTED TO COUGH UP MUSCUS INTO CUP NOT ORAL SPIT. PT STABLE, AWAKE, AND ALERT ON ROOM AIR.
[2021-08-12 09:22] LABS: COVID-19 PCR Negative (Negative)
[2021-08-12] MEDS: Atorvastatin 20 MG TAB PO (20:40)
[2021-08-12] MEDS: cefTRIAXone 1 GM/50 ML BAG IVPB (20:40)
[2021-08-12] MEDS: AZITHROMYCIN 500 MG in Normal Saline 250 ML 250 MG IVPB (21:54)
--- NOTE | 2021-08-13 | DI.RAD_ITS ---
Exam(s) XR CHEST 2V PA LATERAL EXAM: XR CHEST 2V PA LATERAL CLINICAL HISTORY: Cough , SOB TECHNIQUE: 2D digital imaging was performed of the chest. Three images were obtained. PA and later al views were obtained. COMPARISON: No previous for comparison. FINDINGS: MEDIASTINUM: Normal. HEART: Normal. PULMONARY VASCULATURE: Normal. LUNGS: There is a large opacity involving the right upper lobe with air bronchograms and loss of volu me. The lungs are otherwise clear. PLEURAL SPACE: No pleural effusion or pneumothorax. BONE:Within normal limits for the patient's age. A left shoulder replacement is partially imaged. OTHER FINDINGS:Normal. IMPRESSION: Large opacity involving the right upper lobe with air bronchograms and volume loss. The findings may represent atelectasis or pneumonia. Please correlate clinically. The possibility of a central obst ructing mass cannot be excluded. The patient had a recent CT scan of the chest on 08/11/2021. Please refer to the report for complete details. DATA REPOSITORY: RADIATION DOSE DELIVERED:
[2021-08-13 03:29] VITALS: BP 120/69; PULSE 75; RESP 15; TEMP 37.1; O2SAT 96
[2021-08-13 04:26] VITALS: O2SAT 96
[2021-08-13 06:43] VITALS: BP 114/67; PULSE 70; RESP 18; TEMP 37; O2SAT 95
[2021-08-13 07:49] VITALS: PULSE 74; RESP 1; RESP 17; RESP 8; O2SAT 95
[2021-08-13] MEDS: Albuterol/Ipratropium 3 ML UPD VIAL UPD (07:49)
[2021-08-13 07:50] VITALS: PULSE 76; RESP 1; RESP 18; RESP 8; O2SAT 98
[2021-08-13] MEDS: Losartan 50 MG TAB 100 MG PO (07:57)
[2021-08-13] MEDS: Chlorthalidone 25 MG TAB PO (07:57)
[2021-08-13] MEDS: Potassium Chloride 10 MEQ CAPCR 20 MEQ PO (07:57)
[2021-08-13] MEDS: Metoprolol CR 100 MG TABCR PO (07:57)
[2021-08-13] MEDS: Folic Acid 1 MG TAB PO (07:57)
[2021-08-13] MEDS: Apixaban 5 MG TAB PO (07:57)
[2021-08-13] MEDS: Aspirin E.C. 81 MG TABEC PO (07:57)
[2021-08-13] MEDS: Calcium Carbonate 1.5 GM TAB PO (07:57)
[2021-08-13] MEDS: guaiFENesin 600 MG TABCR 1200 MG PO (07:57)
--- NOTE | 2021-08-13 09:58 | W.PULMCON ---
General Date Of Service Date of service: 08/13/21 Time of Service: 07:30 Reason for Consult: Pneumonia Assessment and Plan Assessment and plan (1) Pneumonia: Status: Acute Assessment and plan: This is a 75 yo man with no prior pulmonary history who is admitted for a RUL consolidation. There was concern about a RUL collapse due to mucus plugging and possible need for bronchoscopy, however on my assessment of the chest CT there are clearly air bronchograms, which is evidence against a true lobe collapse due to a bronchial obstruction. Additionally in most instances non invasive measures of secretion clearance are sufficient to clear mucus from the airways. He has also improved based on his CXR so there is no indication for bronchoscopy at this time. Given the location and subacute nature of the symptoms, TB should be ruled out in his case. I had him get a CXR today which showed improved aeration of the RUL, as compared to his chest CT on 08/11/21. He does not require O2 and feels much improved. RUL Pneumonia - improving with airway clearance - continue VibraPEP at home - continue ceftriaxone and azithromycin while in hospital - recommend Augmentin on discharge with a total antibiotic course of 10 days - I have arranged outpatient follow up with me in 1 month - we will repeat CXR prior to this visit. History of Present Illness Narrative: This is a 75 yo man who was admitted for a RUL consolidation. He began feeling short of breath over the last couple of weeks which prompted him to seek help. He was found to have a dense consolidation of the RUL on chest CT. There are clear air bronchograms present which evidence against a bronchial obstruction. There are no prior chest images present for me to compare this scan to. He states that he coughed out a significant amount of secretions overnight and upon waking up this morning he feels 100% better. He denies any previous lung disease, however states he had a pneumonia 3 years ago and does have some sinusitis at times. He was in the and in [id number] was in the [place] over 1 year as he was in the [employer]. He denies ever having TB or having any TB contacts. He is a never smoker. He does not have shortness of breath for me this morning and states the sputum production has slowed down. Review of Systems All systems reviewed & are unremarkable except as noted in HPI and below PFSH All Active Problems (Updated 08/13/21 @ 10:06 by Idania Reddy MD) Pneumonia (Acute) Consolidation of right upper lobe of lung (Acute) Leukocytosis (Acute) DVT (deep venous thrombosis) (Chronic) Cellulitis (Acute) Leg edema, right (Acute) Primary osteoarthritis of right knee (Chronic) Primary osteoarthritis of left knee (Acute) Edema (Acute) BPH (benign prostatic hyperplasia) (Chronic) Polyneuropathy (Acute) Arthritis (Acute) Chronic left shoulder pain (Acute 08/11/15) Prostatitis (Acute) Tubular adenoma (Chronic 10/20/15) Osteopenia (Chronic 05/11/03) -1.1/-0.3/0.1 Male erectile disorder (Chronic) Hypercholesterolemia (Chronic 09/06/16) Essential hypertension (Chronic 07/31/13) Actinic keratoses (Chronic 09/07/17) Medical History Abnormal endocrine laboratory test finding Abnormal laboratory test elevated MCV Acute bilateral low back pain 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), electrolyte disorder associated w/alcohol Arthritis Chronic left shoulder pain 08/11/15 Essential hypertension Folate deficiency Hypokalemia 11/15/16 Kidney stone Male erectile disorder Osteopenia Prostatitis in the past Shoulder pain 08/01/13 replacement 11/2014 Surgical History ankle repair R ANKLE RECONSTRUCTION Closed fracture of unspecified part of neck of femur 05/11/03 left femoral neck fracture [facility] [place]oscopy - MAC (~2005) neg Rotator Cuff Repair RIGHT SHOULDER-VIKAS CAP LEFT SHOULDER-VIKAS CAP 11/26 Status post hernia repair right inguinal hernia ~20s Family History Maternal Grandfather Heart disease Cancer Mother , AGE 84 Essential hypertension GI cancer Father , AGE 69 Essential hypertension Heart disease Myocardial infarction Brother No problems noted. Paternal Grandfather , AGE 85 Heart disease Maternal Grandmother , AGE 93 Neoplasm Paternal Grandmother Neoplasm Brother No problems noted. Brother No problems noted. Son No problems noted. Daughter No problems noted. Daughter No problems noted. Social History Smoking/Tobacco Use Status: Never Second Hand Exposure: No Smoking risk assessment performed?: Yes Alcohol Intake: former Drug use: Never Substance use type: does not use Caregiver/Support person: No Household members: spouse Housing: house Communication Needs: Hard of Hearing and Corrective Lenses Do you need help understanding health information?: Rarely current occupation: retired - [employer] Pets and animals: No Sexually active: Yes Do you think of yourself as: straight/heterosexual Current gender identity: male What is your relationship status?: How often do you talk on the phone with friends or family?: three or more times per week How often do you get together with friends or relatives?: three or more times per week How often do you attend nondenominational or jew services?: decline to answer Do you belong to any clubs or organized social groups?: yes Panel score (0-1 are the most socially isolated patients): 3 What type of physical activity do you participate in: walking Duration: < 15 minutes/day Frequency: 1-2 times per week Taylor/Christianity: Baptist Special taylor needs: No Seatbelt use: always Helmet use: No Drive intox or ride w/intox food mobile driver: No Do you feel safe at home: Yes Do you feel safe in your relationship?: Yes Visit Medication and Allergies Active Medications Generic Name Dose Route Start Last Admin Trade Name Freq PRN Reason Stop Dose Admin Acetaminophen 325 - 650 mg 08/12/21 00:33 Acetaminophen 325 Mg Tab PO Q4H PRN PRN Al Hydrox/Mg Hydrox/Simethicone 30 ml 08/12/21 00:33 Mylanta Suspension 30 Ml Cup PO Q2H PRN PRN Albuterol Sulfate 2.5 mg 08/12/21 00:33 Albuterol 2.5 Mg/3 Ml Inh Soln Vial UPD Q2H PRN PRN Albuterol/Ipratropium 3 ml 08/12/21 08:30 08/13/21 07:49 Albuterol/Ipratropium 3 Ml Upd Vial UPD 3 ml QID PITER Administration Apixaban 5 mg 08/12/21 08:30 08/13/21 07:57 Apixaban 5 Mg Tab PO 5 mg BID PITER Administration Aspirin 81 mg 08/12/21 08:30 08/13/21 07:57 Aspirin E.C. 81 Mg Tabec PO 81 mg DAILY PITER Administration Atorvastatin Calcium 20 mg 08/12/21 20:00 08/12/21 20:40 Atorvastatin 20 Mg Tab PO 20 mg QPM PITER Administration Calcium Carbonate 1.5 gm 08/12/21 08:30 08/13/21 07:57 Calcium Carbonate 1.5 Gm Tab PO 1.5 gm DAILY PITER Administration Chlorthalidone 25 mg 08/12/21 08:30 08/13/21 07:57 Chlorthalidone 25 Mg Tab PO 25 mg DAILY PITER Administration Dimethicone/Zinc Oxide 0 gm 08/12/21 00:33 Terrell Protect Cream 142 Gm Tube TP PRN PRN Docusate Sodium 100 mg 08/12/21 00:33 Docusate Sodium 100 Mg Cap PO TID PRN PRN Folic Acid 1 mg 08/12/21 08:30 08/13/21 07:57 Folic Acid 1 Mg Tab PO 1 mg DAILY PITER Administration Guaifenesin 1,200 mg 08/12/21 00:40 08/13/21 07:57 Guaifenesin 600 Mg Tabcr PO 1,200 mg BID PITER Administration Sodium Chloride 500 mls @ 0 mls/hr 08/11/21 20:03 Saline 500ml Bag IV PRN PRN As Directed Ceftriaxone Sodium/Dextrose 1 gm in 50 mls @ 100 mls/hr 08/12/21 20:00 08/12/21 20:40 Rocephin IVPB 100 mls/hr Q24H PITER Administration Azithromycin 500 mg/ Sodium 250 mls @ 250 mls/hr 08/12/21 22:00 08/13/21 06:50 Chloride IVPB Infused Q24H [facility] Infusion IV Miscellaneous Supplies 1 each 08/11/21 20:15 Iv Access IV DIRECTED PITER Losartan Potassium 100 mg 08/12/21 08:30 08/13/21 07:57 Losartan 50 Mg Tab PO 100 mg DAILY PITER Administration Magnesium Hydroxide 30 ml 08/12/21 00:33 Milk Of Magnesia 30 Ml Cup PO DAILY PRN PRN Metoprolol Succinate 100 mg 08/12/21 08:30 08/13/21 07:57 Metoprolol Cr 100 Mg Tabcr PO 100 mg DAILY PIETR Administration Polyethylene Glycol 17 gm 08/12/21 00:33 Polyethylene Glycol 3350 17 Gm Packet PO DAILY PRN PRN Constipation Potassium Chloride 20 meq 08/12/21 08:30 08/13/21 07:57 Potassium Chloride 10 Meq Capcr PO 20 meq DAILY PITER Administration Sodium Chloride 0 ml 08/11/21 20:03 08/12/21 20:40 Normal Saline Flush 10 Ml Syr IVP 10 ml PRN PRN Administration Allergies No Known Allergies Allergy (Verified 08/11/21 21:24) Exam Narrative Exam Narrative: Gen: NAD, normal respiratory effort, well-nourished HENT: PERRL, nasal turbinates normal without erythema or inflammation, moist oral mucosa, Mallampati 2, No LAD or JVD Chest: No respiratory distress, normal appearance of chest, clear to auscultation bilaterally, no crackles, normal inspiratory effort. Focal RUL wheeze that clears with more breathing. Good aeration in RUL region. Heart: regular rate and rhythym, no murmurs, rubs or gallops Abdomen: Non-distended, soft, non tender Extremities: No clubbing, edema, cyanosis, rashes Neuro: AAOx3 , non focal Psych: cooperative, appropriate mental affect Results Last Vital Signs Temp 37.0 C 08/13/21 06:43 Pulse 76 08/13/21 07:50 Resp 18 08/13/21 07:50 BP 114/67 08/13/21 06:43 Pulse Ox 98 08/13/21 07:50 Labs Result diagrams: 08/13/21 09:35 08/13/21 09:35 Imaging Chest x-ray: report reviewed and image reviewed CT scan - chest: report reviewed and image reviewed
[2021-08-13 09:59] LABS: Abs Immature Grans 0.04 10^3/uL (0.0-0.06); Absolute Basophil Count 0.03 10^3/uL (0.0-0.2); Absolute Eosinophil Count 0.14 10^3/uL (0.0-0.7); Absolute Lymphocyte Count 1.16 10^3/uL (1.2-3.4); Absolute Monocyte Count 0.65 10^3/uL (0.1-0.8); Basophils % 0.3; Eosinophils % 1.6; HGB 12.1 g/dL (13.5-17.5); Immature Grans % 0.5; Lymphocytes % 13.5; MCHC 32.7 % (32.0-36.0); MCV 91.8 fL (80-95); MPV 8.4 fL (8.0-11.0); Monocytes % 7.5; Neutrophils % 76.6; Nucleated RBC 0 %; Platelet Count 406 10^3/uL (130-400); RBC 4.03 10^6/uL (4.36-5.78); RDW 12.2 % (11.8-14.1); RDW-SD 41.5 fL; WBC 8.62 10^3/uL (4.4-10.8)
[2021-08-13 10:16] LABS: BUN 18 mg/dL (7-18); CREATININE 1.3 mg/dL (0.70-1.30); Calcium 9.2 mg/dL (8.5-10.1); Chloride 100 mmol/L (98-107); Estimated GFR 53.96 (mL/min/1.73m2); Glucose 130 mg/dL (74-106); Potassium 3.6 mmol/L (3.5-5.1); Sodium 138 mmol/L (136-145)
[2021-08-13 10:17] LABS: Magnesium 1.9 mg/dL (1.8-2.4)
--- NOTE | 2021-08-13 10:44 | W.PM.DS.N ---
Date of service: 08/13/21 Time of Service: 10:45 DS: Diagnosis Discharge Diagnosis (1) Pneumonia: Start date: 08/13/21 Start time: 10:45 Status: Acute Asessment and Plan: Large opacity involving the right upper lobe with air bronchograms and volume loss.? The findings may represent atelectasis or pneumonia. 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 He was initally requiring oxygen and not feeling well on admission. Admitting provider did chest precussion. After this patient was able to cough up large ball of mucus. He state after coughing that up he felt better He was initiated on ceftriaxone and azithromycin on admission, acapella and IS were ordered. Afebrile since admission. No longer requiring oxygen He was seen by Dr. Hawley today and is ready for discharge., He will be discharged on oral antibiotics Another round of chest percussion was done to Right upper lobe per CXR. He asked if his could do this at home as he feels this was very helpful and this provider agreed. Demonstrated proper way and areas were it should be done. Also encouraged use of IS and acapella at home. Patient aggreable to plan Discussed with Dr. 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 He was febrile, with leukocytosis, requiring oxygen initiated on ceftriaxone and azithromycin. Chest precussion was done on admission by admitting provider. He was able to cough up a large amount of mucus. After this he started feeling better. He no longer required oxygen, he has been afebrile. Leukocytosis has normalized. Patient was seen by Dr. Feng and she will see him as an out patient. He looks well and feels well. He feels that he is ready to go home. Therefore his is being discharged home on cefpodoxime and azithromycin along with mucinex. f/u with PCP in 1-2 weeks with repeat xray in 6 weeks. Home Meds and New Rx's Prescriptions: New guaifenesin [Mucinex] 600 mg Tablet Extended Release 12hr 1,200 mg PO BID Qty: 20 0RF azithromycin 250 mg tablet 250 mg PO DAILY 3 Days Qty: 3 0RF Rx Instructions: start on day 2 of therapy cefpodoxime 200 mg tablet 200 mg PO BID Qty: 14 0RF Rx Instructions: must administer with a meal/food Continued Eliquis 5 mg tablet 5 mg PO BID Qty: 180 5RF aspirin [Aspir-81] 81 MG tablet,delayed release (DR/EC) 81 mg PO DAILY 0RF calcium carbonate [Caltrate 600] 600 MG tablet 600 mg PO DAILY 0RF Rx Instructions: REPORTS TAKING 1.5GM TAB DAILY. chlorthalidone 25 mg tablet 25 mg PO DAILY Qty: 90 4RF folic acid 1 mg tablet 1 mg PO DAILY Qty: 100 12RF losartan [Cozaar] 100 mg tablet 100 mg PO DAILY Qty: 90 4RF metoprolol succinate 100 mg tablet extended release 24 hr 100 mg PO DAILY Qty: 90 5RF Rx Instructions: in place of atenolol potassium chloride [Klor-Con M20] 20 mEq tablet,ER particles/crystals See Rx Instructions .ROUTE .COMPLEX Qty: 90 3RF Dose Instruction: TAKE 1 TABLET DAILY Rx Instructions: TAKE 1 TABLET DAILY atorvastatin 20 mg tablet 20 mg PO DAILY Qty: 90 4RF No Action Eliquis DVT-PE Treat 30D Start 5 mg (74 tabs) tablets,dose pack 5 mg PO ONCE Qty: 74 0RF Discharge Instructions Instructions: Community Acquired Pneumonia (DC), Acute Cough (GEN) Additional Instructions: F/u with PCP in 1-2 weeks Continue to use acapella and Incentive spirometer Yes your can do chest percussion, especially to the right upper chest, three times a day should be adequate if you would like per our discussion, have her do it as I have demonstrated to you F/u with Dr. Ordonez as scheduled you will need repeat Cxray in 6 weeks your PCP can order that. Take medications as prescribed., Cefpodoxime twice a day for 7 days start your first dose tonight, and azithromycin for 3 days, take your next dose tomorrow. Take next dose of mucinex tonight. Referrals: Idanai Reddy MD [ [facility] STAFF PHYSICIAN] - 09/13/21 10:00 am (You will need a Chest X-Ray pior to your appointment Radiology will call you with appointment date.) Activity:: Activity as Tolerated Equipment/Supplies:: No Equipment Needed Diet:: Low Sodium Discharge Orders Discharge Orders: Discharge Order (Routine); Ordered 08/13/21 Ordered By: Jennifer Mahan DS: Summary Time Spent with Patient providing and/or coordinating discharge services: Greater than 30 minutes Status at Discharge Functional status at discharge: independent ambulation Overall status at discharge: patient is progressing back to baseline Mental Status: mental status grossly normal Speech and Movement: speech and movement normal Mood: congruent mood Affect: normal affect Exam Narrative Exam Narrative: Gen: NAD, normal respiratory effort, well-nourished HENT: PERRL, nasal turbinates normal without erythema or inflammation, moist oral mucosa, Mallampati 2, No LAD or JVD Chest: No respiratory distress, normal appearance of chest, clear to auscultation bilaterally, no crackles, normal inspiratory effort. No wheezing, chest percussion done per patient request Heart: regular rate and rhythym, no murmurs, rubs or gallops Abdomen: Non-distended, soft, non tender Extremities: No clubbing, edema, cyanosis, rashes Neuro: AAOx3 , non focal Psych: cooperative, appropriate mental affect Psych Mental Status: mental status grossly normal Speech and Movement: speech and movement normal Mood: congruent mood Affect: normal affect DS: Data Vitals/I&O Vitals and I&O: Vital Signs Temperature 37.0 C 08/13/21 06:43 Temperature Source Tympanic 08/13/21 06:43 Pulse 76 08/13/21 07:50 Pulse Rhythm Regular 08/13/21 08:13 Respiratory Rate 18 08/13/21 07:50 Respiratory Effort Non-Labored 08/13/21 08:13 Respiratory Depth Normal 08/13/21 08:13 Respiratory Pattern Normal 08/13/21 08:13 Blood Pressure 114/67 08/13/21 06:43 Blood Pressure Mean 77 08/11/21 23:45 Blood Pressure Position Sitting 08/11/21 19:57 Pulse Oximetry 98 08/13/21 07:50 Oxygen Delivery Method Room Air 08/13/21 07:49 Oxygen Flow Rate 0 08/13/21 07:49 Fraction of Inspired Oxygen (FIO2) 21 08/12/21 09:09 Pain Level 0 08/12/21 23:20 Intake & Output 08/12/21 08/12/21 08/13/21 11:59 23:59 11:59 Intake Total 490 / 490 910 / 910 Output Total 300 / 300 1500 / 1500 Balance 490 / 190 -300 / 190 -590 / -590 Weight 120.304 kg 116.8 kg Intake: IV 250 / 250 250 / 250 Oral 240 / 240 660 / 660 Output: Urine 300 / 300 1500 / 1500 Other: Urine Color Yellow Straw Straw Urine Appearance Clear Clear Clear Urine Odor Normal Normal Comment Per patient he voided in the toilet Stool Size Moderate Stool Characteristics Soft Voiding Methods Toilet Toilet Toilet Data Completed and Pending Completed studies during hospitalization [Text1]: FINDINGS: Exam mildly limited by patient motion. Pulmonary Arteries: No evidence of filling defect to suggest pulmonary emboli. Distal branches not well evaluated due to motion. Mediastinum and Stephanie: No dominant adenopathy or fluid collection. Small hiatal hernia. Pulmonary parenchyma: Complete consolidation is well as atelectasis of the right upper lobe.? Air bronchograms. ? no discrete mass is visible however mass is not excluded.? Right upper lobe bronchus appears obstructed..? Minimal infiltrates right lower lobe. Pleura: No effusion or pneumothorax. Heart: The heart is mildly dilated.? Moderate coronary artery calcifications.? Calcification in the left ventricular apex.? Aorta: Ascending aorta 3.9 cm..? No aneurysm.? No dissection.? Atherosclerotic changes.? Upper abdomen:? Unremarkable. Bones: Bilateral shoulder prostheses.? Mild degenerative changes of the spine.? IMPRESSION: Consolidation and atelectasis of the right upper lobe.? Obstruction of the right upper lobe bronchus.? Mass not excluded. No evidence of pulmonary embolism. FINDINGS: Limitations: Evaluation of the distal pulmonary arterial branches is limited by motion. Pulmonary arteries: No pulmonary emboli within the main pulmonary arteries or proximal through mid segmental branches. Distal segmental branches are obscured by motion. Aorta: Ectatic ascending thoracic aorta measuring 3.9 cm in greatest dimension. Other arteries: Mild aortic calcific atherosclerotic disease. No acute pathology to the aorta. Lungs: Obstruction of the right upper lobar bronchus (image 204 series 8 and image 70 series 9). Segment of obstruction measures approximately 2 cm x 2 cm. Complete consolidation of the right upper lobe. Air bronchograms in the right upper lobe. Right middle lobe is clear. Right lower lobe is clear. Left lung is clear. Pleural spaces: Unremarkable. No pneumothorax. No pleural effusion. Heart: Moderate coronary artery calcific atherosclerotic disease. Mild cardiomegaly. Normal pericardium. Punctate calcification in the left ventricular apex, likely of chronic etiology and perhaps related to prior myocardial infarction. Lymph nodes: Unremarkable. No enlarged lymph nodes. Diaphragm: Small hiatal hernia. Bones/joints: Bilateral shoulder arthroplasties partially visualized. No acute fracture or aggressive osseous lesion. Mild degenerative changes of the spine. Soft tissues: Unremarkable. Other findings: No acute upper abdominal findings. IMPRESSION: 1. Obstruction to the proximal segment of the right upper lobar bronchus. Differential would include mucoid obstruction versus endobronchial lesion. 2. Complete consolidation of the right upper lobe, compatible with a combination of atelectasis and superimposed infectious pneumonia. 3. No large pulmonary emboli within the main pulmonary arteries or proximal segmental branches. Distal segmental branches obscured by respiratory motion. MEDIASTINUM: Normal.? HEART: Normal. PULMONARY VASCULATURE: Normal. LUNGS: There is a large opacity involving the right upper lobe with air bronchograms and loss of volume.? The lungs are otherwise clear. PLEURAL SPACE: No pleural effusion or pneumothorax. BONE:Within normal limits for the patient's age.? A left shoulder replacement is partially imaged. OTHER FINDINGS:Normal.? IMPRESSION: Large opacity involving the right upper lobe with air bronchograms and volume loss.? The findings may represent atelectasis or pneumonia.? Please correlate clinically.? The possibility of a central obstructing mass cannot be excluded.? The patient had a recent CT scan of the chest on 08/11/2021.? Please refer to the report for complete details.? Labs on day of discharge: Labs from last 24 hours 08/13/21 08/13/21 08/13/21 Unknown 09:35 09:35 WBC 8.62 RBC 4.03 L Hgb 12.1 L Hct 37.0 L MCV 91.8 MCH 30.0 MCHC 32.7 RDW 12.2 Plt Count 406 H MPV 8.4 Immature Gran % 0.5 Neutrophils % 76.6 Lymphocytes % 13.5 Monocytes % 7.5 Eosinophils % 1.6 Basophils % 0.3 Nucleated RBC % 0 Absolute Neutrophils 6.60 Absolute Lymphocytes 1.16 L Absolute Monocytes 0.65 Absolute Eosinophils 0.14 Absolute Basophils 0.03 Sodium 138 Potassium 3.6 Chloride 100 Carbon Dioxide 28.0 Anion Gap 10.0 BUN 18 Creatinine 1.3 Estimated GFR/1.73 m2 53.96 Glucose 130 H Calcium 9.2 Magnesium Urine Legionella Ag M. pneumoniae Source M. pneumoniae (PCR) Ur Strep pneumoniae Ag TB Test Ag - Nil 1 Pending TB Test Ag - Nil 2 Pending TB Test (QFT) Interp Pending 08/13/21 08/12/21 08/12/21 09:35 19:27 19:27 WBC RBC Hgb Hct MCV MCH MCHC RDW Plt Count MPV Immature Gran % Neutrophils % Lymphocytes % Monocytes % Eosinophils % Basophils % Nucleated RBC % Absolute Neutrophils Absolute Lymphocytes Absolute Monocytes Absolute Eosinophils Absolute Basophils Sodium Potassium Chloride Carbon Dioxide Anion Gap BUN Creatinine Estimated GFR/1.73 m2 Glucose Calcium Magnesium 1.9 Urine Legionella Ag Pending M. pneumoniae Source M. pneumoniae (PCR) Ur Strep pneumoniae Ag Pending TB Test Ag - Nil 1 TB Test Ag - Nil 2 TB Test (QFT) Interp 08/12/21 16:40 WBC RBC Hgb Hct MCV MCH MCHC RDW Plt Count MPV Immature Gran % Neutrophils % Lymphocytes % Monocytes % Eosinophils % Basophils % Nucleated RBC % Absolute Neutrophils Absolute Lymphocytes Absolute Monocytes Absolute Eosinophils Absolute Basophils Sodium Potassium Chloride Carbon Dioxide Anion Gap BUN Creatinine Estimated GFR/1.73 m2 Glucose Calcium Magnesium Urine Legionella Ag M. pneumoniae Source Pending M. pneumoniae (PCR) Pending Ur Strep pneumoniae Ag TB Test Ag - Nil 1 TB Test Ag - Nil 2 TB Test (QFT) Interp 08/12/21 16:40 Sputum Sputum Culture - Pending Preliminary micro results at discharge 08/12/21 04:00 Blood Culture - Preliminary Blood NO GROWTH 24 HOURS 08/12/21 03:49 Blood Culture - Preliminary Blood NO GROWTH 24 HOURS 08/12/21 16:40 Sputum Culture - Pending Sputum PFSH All Active Problems Pneumonia (Acute) Consolidation of right upper lobe of lung (Acute) Leukocytosis (Acute) DVT (deep venous thrombosis) (Chronic) Cellulitis (Acute) Leg edema, right (Acute) Primary osteoarthritis of right knee (Chronic) Primary osteoarthritis of left knee (Acute) Edema (Acute) BPH (benign prostatic hyperplasia) (Chronic) Polyneuropathy (Acute) Arthritis (Acute) Chronic left shoulder pain (Acute 08/11/15) Prostatitis (Acute) Tubular adenoma (Chronic 10/20/15) Osteopenia (Chronic 05/11/03) -1.1/-0.3/0.1 Male erectile disorder (Chronic) Hypercholesterolemia (Chronic 09/06/16) Essential hypertension (Chronic 07/31/13) Actinic keratoses (Chronic 09/07/17) Medical History Abnormal endocrine laboratory test finding Abnormal laboratory test elevated MCV Acute bilateral low back pain 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), electrolyte disorder associated w/alcohol Arthritis Chronic left shoulder pain 08/11/15 Essential hypertension Folate deficiency Hypokalemia 11/15/16 Kidney stone Male erectile disorder Osteopenia Prostatitis in the past Shoulder pain 08/01/13 replacement 11/2014 Surgical History ankle repair R ANKLE RECONSTRUCTION Closed fracture of unspecified part of neck of femur 05/11/03 left femoral neck fracture [facility] [place] [place]oscopy - MAC (~2005) neg Rotator Cuff Repair RIGHT SHOULDER-VIKAS CAP LEFT SHOULDER-VIKAS CAP 11/26 Status post hernia repair right inguinal hernia ~20s Family History Maternal Grandfather Heart disease Cancer Mother , AGE 84 Essential hypertension GI cancer Father , AGE 69 Essential hypertension Heart disease Myocardial infarction Brother No problems noted. Paternal Grandfather , AGE 85 Heart disease Maternal Grandmother , AGE 93 Neoplasm Paternal Grandmother Neoplasm Brother No problems noted. Brother No problems noted. Son No problems noted. Daughter No problems noted. Daughter No problems noted. Social History Smoking/Tobacco Use Status: Never Second Hand Exposure: No Smoking risk assessment performed?: Yes Alcohol Intake: former Drug use: Never Substance use type: does not use Caregiver/Support person: No Household members: spouse Housing: house Communication Needs: Hard of Hearing and Corrective Lenses Do you need help understanding health information?: Rarely current occupation: [employer] Pets and animals: No Sexually active: Yes Do you think of yourself as: straight/heterosexual Current gender identity: male What is your relationship status?: How often do you talk on the phone with friends or family?: three or more times per week How often do you get together with friends or relatives?: three or more times per week How often do you attend episcopal or hoahaoism services?: decline to answer Do you belong to any clubs or organized social groups?: yes Panel score (0-1 are the most socially isolated patients): 3 What type of physical activity do you participate in: walking Duration: < 15 minutes/day Frequency: 1-2 times per week Taylor/Church: [employer] Special taylor needs: No Seatbelt use: always Helmet use: No Drive intox or ride w/intox courier delivery driver: No Do you feel safe at home: Yes Do you feel safe in your relationship?: Yes
[2021-08-13 10:54] VITALS: BP 116/74; PULSE 70; RESP 20; TEMP 36.8; O2SAT 94
--- NOTE | 2021-08-13 11:45 | PDOC.CMDIS ---
- If Service Date Differs Date of service: 08/13/21 Time of Service: 11:46 LACE Index Scoring Tool - Questions: Length of Stay (in days): 2 Acuity (Admit via E.D.?): Yes E.D. Visits: 1 - Answers: Total Score: 6 Risk of Readmission: Low Risk Care Management Discharge Reason for Hospitalization: Pneumonia, RUL obstruction. Discharge Plan: Louis will return home when ready per MD. He will have follow up appointments with his PCP, as well as Pulmonology. He will have new prescriptions; [facility] in [place] is closed; CM requested provider to submit to [facility] and notified Executive Candidate Developer. He will transport via private vehicle with his , Christine. Patient/Family Education Needs: Review discharge instructions, discuss Ask Me Three.
[2021-08-13 18:57] LABS: Legionella Ag Detection Urine Negative (Negative)
[2021-08-15 16:16] LABS: Streptococcus Pneumoniae Ag, U Negative (Negative)
[2021-08-15 23:51] LABS: Mycoplasma Pneumoniae PCR Negative; Specimen source Sputum
[2021-08-16 13:26] LABS: TB Interpretation Negative (Negative); TB1 Ag minus Nil 0.02 IU/ml
== END 2021-08-13 13:07 | disposition home or self-care (01) | DRG 194 ==
LOC: ER 23:23 → MS 08-12 00:06
PROVIDERS: Nurse Practitioner Family; Student in an Organized Health Care Education/Training Program; Admitting Provider Internal Medicine; Emergency Provider Emergency Medicine; PCP Family Medicine; Visit Provider Internal Medicine
DX: J18.9 Pneumonia, unspecified organism (principal); I82.591 Chronic embolism and thrombosis of other specified deep vein of right lower extremity; I10 Essential (primary) hypertension; Z79.01 Long term (current) use of anticoagulants; E78.5 Hyperlipidemia, unspecified; M17.0 Bilateral primary osteoarthritis of knee; N40.0 Benign prostatic hyperplasia without lower urinary tract symptoms; G62.9 Polyneuropathy, unspecified; E78.00 Pure hypercholesterolemia, unspecified; M85.80 Other specified disorders of bone density and structure, unspecified site
CPT/HCPCS: 36415; 80048; 80053; 84145; 87040; 87449; 87635; 93005; 96365; 96367; 99285; U0005; 71046; 83735; 84484; 85025; 86140; 86480; 87070; 87205; 87581; 87899; 93010; 94640; 94667; 99222; 99239; J0456; J0696; J7620

== ENCOUNTER 2021-08-11 19:43 | Outpatient (REF) | payer MEDICARE, SELFPAY ==
[2021-08-13 12:41] LABS: COVID-19 RT-PCR UVMMC Result Negative (Negative)
== END 2021-08-11 19:44 | disposition home or self-care (01) ==
LOC: LBN 19:43
PROVIDERS: Visit Provider Physician Assistant
DX: R05.9 Cough, unspecified (principal); Z20.822 Contact with and (suspected) exposure to COVID-19
CPT/HCPCS: U0003; U0005

== ENCOUNTER 2021-08-16 03:01 | Outpatient (CLI) | payer MEDICARE, SELFPAY ==
[2021-08-12 04:12] LABS: Abs Immature Grans 0.08 10^3/uL (0.0-0.06); Absolute Basophil Count 0.05 10^3/uL (0.0-0.2); Absolute Eosinophil Count 0.07 10^3/uL (0.0-0.7); Absolute Lymphocyte Count 1.59 10^3/uL (1.2-3.4); Absolute Monocyte Count 1.23 10^3/uL (0.1-0.8); Basophils % 0.4; Eosinophils % 0.6; HCT 34.2 % (40.0-50.0); HGB 11.2 g/dL (13.5-17.5); Immature Grans % 0.7; Lymphocytes % 13.2; MCH 29.9 pg (27.0-33.0); MCHC 32.7 % (32.0-36.0); MCV 91.2 fL (80-95); MPV 8.3 fL (8.0-11.0); Monocytes % 10.2; Neutrophils % 74.9; Nucleated RBC 0 %; Platelet Count 337 10^3/uL (130-400); RBC 3.75 10^6/uL (4.36-5.78); RDW 12.3 % (11.8-14.1); RDW-SD 41.2 fL; WBC 12.01 10^3/uL (4.4-10.8)
[2021-08-12 04:24] LABS: Anion Gap 11.3 mmol/L (3-11); BUN 19 mg/dL (7-18); CO2 26.7 mmol/L (21.0-32.0); CREATININE 1.2 mg/dL (0.70-1.30); Calcium 8.6 mg/dL (8.5-10.1); Chloride 98 mmol/L (98-107); Estimated GFR 59.18 (mL/min/1.73m2); Glucose 102 mg/dL (74-106); Potassium 3.4 mmol/L (3.5-5.1); Sodium 136 mmol/L (136-145)
--- NOTE | 2021-08-16 06:49 | DI.US_ITS ---
Exam(s) US EXTREMITY VENOUS BI EXAM: US EXTREMITY VENOUS BI CLINICAL HISTORY: dvt in r (surgery planned),r60.9. TECHNIQUE: Bilateral lower extremity venous ultrasound performed using grayscale, color-flow, and sp ectral Doppler analysis. COMPARISON: US US LOWER EXTREMITY VENOUS RT from 05/27/2021 FINDINGS: Left lower extremity: The left common femoral, femoral and popliteal veins demonstrate normal sarah sibility, augmentation, and color Doppler. The posterior tibial veins are patent. 7.7 x 1.8 x 5.8 ce ntimeter Toure's cyst. Right lower extremity: Thrombus again visible from proximal femoral vein through the popliteal vein. Common femoral vein and posterior tibial veins as well as greater saphenous vein are patent. Toure' s cyst measuring 5.7 x 0.8 x 4.8 cm. IMPRESSION: Right: No change in right femoral vein deep venous thrombosis. Left: Negative for DVT DATA REPOSITORY:
== END 2021-08-16 03:21 ==
LOC: DI 03:01
PROVIDERS: Internal Medicine; PCP Family Medicine; Visit Provider Family Medicine
DX: R60.9 Edema, unspecified (principal); I82.401 Acute embolism and thrombosis of unspecified deep veins of right lower extremity
CPT/HCPCS: 93970

== ENCOUNTER 2021-09-13 00:56 | Outpatient (CLI) | payer MEDICARE, SELFPAY ==
--- NOTE | 2021-09-13 06:30 | DI.RAD_ITS ---
Exam(s) XR CHEST 2V PA LATERAL EXAM: XR CHEST 2V PA LATERAL CLINICAL HISTORY: f/u previous RUL consolidation,J18.9. TECHNIQUE: 2D digital imaging was performed. COMPARISON: CT CT CHEST PE CTA from 08/11/2021 CR XR CHEST 2V PA LATERAL from 08/13/2021 FINDINGS: 2 views: Heart size normal. Left lung is clear. There is still some infiltrate in the right upper lobe, albeit smaller than previous. Nevertheless, still suspicious for possible underlying neoplastic bronchus lesion. Bronchoscopy recommended. There are no pleural effusions. Bilateral shoulder prostheses noted. IMPRESSION: Right upper lobe findings as described above. Although there appears to been some improvement when c ompared to 08/13/2021, findings are still suspicious for possible underlying neoplasm. Appropriate r eferral for bronchoscopy is recommended. DATA REPOSITORY: RADIATION DOSE DELIVERED:
== END 2021-09-13 01:16 ==
LOC: DI 00:56
PROVIDERS: PCP Family Medicine; Visit Provider Student in an Organized Health Care Education/Training Program
DX: J18.9 Pneumonia, unspecified organism (principal)
CPT/HCPCS: 71046

== ENCOUNTER 2021-09-20 02:10 | Outpatient (CLI) | payer MEDICARE, SELFPAY | END 2021-09-20 02:11 | disposition home or self-care (01) | LOC: LBO 02:10 | PROVIDERS: PCP Family Medicine; Visit Provider Student in an Organized Health Care Education/Training Program ==

== ENCOUNTER 2021-09-22 02:27 | Outpatient (CLI) | payer MEDICARE, SELFPAY ==
[2021-09-22 12:51] LABS: Source Nasal/Nares
[2021-09-22 16:11] LABS: COVID-19 PCR Negative (Negative)
== END 2021-09-22 02:28 | disposition home or self-care (01) ==
LOC: LBO 02:27
PROVIDERS: PCP Family Medicine; Visit Provider Student in an Organized Health Care Education/Training Program
DX: Z20.822 Contact with and (suspected) exposure to COVID-19 (principal); J18.1 Lobar pneumonia, unspecified organism
CPT/HCPCS: 87635; U0005

== ENCOUNTER 2021-09-24 07:19 | Day surgery (SDC) | payer MEDICARE, SELFPAY ==
[2021-09-24] VITALS (10 sets, daily range): BP systolic 78–134; BP diastolic 42–86; PULSE 52–77; RESP 11–18; TEMP 36–36.4; O2SAT 93–97; BMI 32.5
[2021-09-24] MEDS: Lactated Ringers 1,000 ML 30 ML IV (08:01)
--- NOTE | 2021-09-24 08:22 | W.ANESPRE ---
General Info Date of Service Date Performed: 09/24/21 Height: 6 ft 4 in Weight: 121.563 kg Body Mass Index (BMI): 32.5 Surgical Procedure: Operation Date: 09/24/21 09:10 Proposed Procedure Side Surgeon p Bronchoscopy w/ Biopsies Idania Reddy MD Meds Allergies and Home Medications Allergies Allergy/AdvReac Type Severity Reaction Status Date / Time No Known Allergies Allergy Verified 09/24/21 07:34 Home Medication Medication Instructions Recorded aspirin 81 mg tablet,delayed 81 mg PO DAILY tab-cap 11/26/12 release (Aspir-) calcium carbonate 600 mg calcium 600 mg PO DAILY tab 11/26/12 (1,500 mg) tablet (Caltrate 600) metoprolol succinate 100 mg 100 mg PO DAILY #90 tab 07/24/20 tablet,extended release 24 hr apixaban 5 mg tablet (Eliquis) 5 mg PO BID #180 tab 05/31/21 potassium chloride 20 mEq See Rx Instructions .ROUTE 07/26/21 tablet,extended .COMPLEX #90 tablet release(part/cryst) (Klor-Con M) atorvastatin 20 mg tablet 20 mg PO DAILY #90 tab 08/04/21 cefpodoxime 200 mg tablet 200 mg PO BID #14 tab 08/13/21 guaifenesin 600 mg tablet, 1,200 mg PO BID #20 tab 08/13/21 extended release 12 hr (Mucinex) albuterol sulfate 90 mcg/actuation 2 puff INHALATION Q8H #108 g 08/18/21 aerosol inhaler chlorthalidone 25 mg tablet 25 mg PO DAILY #90 tab-cap 08/27/21 folic acid 1 mg tablet 1 mg PO DAILY #100 tab-cap 08/27/21 losartan 100 mg tablet (Cozaar) 100 mg PO DAILY #90 tab-cap 08/27/21 Current Visit Medications: Current Medications Generic Name Dose Route Start Last Admin Trade Name Freq PRN Reason Stop Dose Admin Albuterol/Ipratropium 3 ml 09/24/21 07:09 Albuterol/Ipratropium 3 Ml Upd Vial UPD Q2H PRN PRN for SOB, wheezing, or cough Ringer's Solution 1,000 mls @ 30 mls/hr 09/24/21 06:00 09/24/21 08:01 IV 10/23/21 23:59 30 mls/hr INFUSION PITER Administration IV Miscellaneous Supplies 1 each 09/24/21 06:00 Iv Access IV 10/23/21 23:59 DIRECTED PITER Sodium Chloride 0 ml 09/24/21 06:00 Normal Saline Flush 10 Ml Syr IV 10/23/21 23:59 PRN PRN Sodium Chloride 0 ml 09/24/21 06:00 Normal Saline 10 Ml Vial IJ 10/23/21 23:59 DIRECTED PRN Sterile Water 0 ml 09/24/21 06:00 Water,Injection,Sterile 10 Ml Vial IJ 10/23/21 23:59 DIRECTED PRN PFSH Active Problems Active Problems: Problem Status Onset Code Actinic keratoses 09/07/17 L57.0 Hypercholesterolemia 09/06/16 E78.00 Male erectile disorder N52.9 Osteopenia 05/11/03 M85.80 Tubular adenoma 10/20/15 D36.9 Prostatitis N41.9 Chronic left shoulder pain 08/11/15 M25.512, G89.29 Arthritis M19.90 Polyneuropathy G62.9 BPH (benign prostatic hyperplasia) N40.0 Edema R60.9 Primary osteoarthritis of left knee M17.12 Primary osteoarthritis of right knee M17.11 Leg edema, right R60.0 Cellulitis L03.90 Consolidation of right upper lobe of lung J18.1 Pneumonia J18.9 DVT (deep venous thrombosis) I82.409 Medical History Medical History (Updated 09/24/21 @ 07:34 by Christen Holman) Abnormal endocrine laboratory test finding Abnormal laboratory test elevated MCV Acute bilateral low back pain 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), electrolyte disorder associated w/alcohol Arthritis Chronic left shoulder pain 08/11/15 DVT (deep venous thrombosis) Essential hypertension Essential hypertension (07/31/13) Folate deficiency Hx of fracture of left hip 3 screws Hypokalemia 11/15/16 Kidney stone Male erectile disorder Osteopenia Prostatitis in the past Shoulder pain 08/01/13 replacement 11/2014 Medical History Comments:: hard of hearing Surgical History Surgical History ankle repair R ANKLE RECONSTRUCTION Closed fracture of unspecified part of neck of femur 05/11/03 [place] [facility] [place] - MAC (~2005) neg Rotator Cuff Repair RIGHT SHOULDER-VIKAS CAP LEFT SHOULDER-VIKAS CAP 11/26 Status post hernia repair right inguinal hernia ~20s Tobacco Smoking/Tobacco Use Status: Never Passive smoking exposure: No Second hand exposure: No Alcohol Alcohol Intake: former Substance Use Substance use: Never Substance use type: does not use Vital Signs and Lab Results Vital Signs Most Recent Vital Signs in EMR: Most Recent Vital Signs Temp Pulse Resp BP Pulse Ox 36.4 C L 63 16 134/86 97 09/24/21 07:38 09/24/21 07:38 09/24/21 07:38 09/24/21 07:38 09/24/21 07:38 Lab Results Blood Type / Crossmatch: No Data to Display Complete Blood Count: No Data to Display Complete Metabolic Panel: No Data to Display Liver Function Panel: No Data to Display Coagulation Panel: No Data to Display Cardiac Panel: No Data to Display Arterial Blood Gas: No Data to Display Venous Blood Gas: No Data to Display Pancreas Panel: No Data to Display Thyroid Panel: No Data to Display Infectious Disease: Coronavirus (COVID-19)(PCR) Negative (Negative) 09/22/21 10:30 09/22/21 Coronavirus 2019 Source Nasal/Nares 09/22/21 10:30 09/22/21 Blood Cultures: No Data to Display Toxicology Panel: No Data to Display Imaging and Studies Imaging and Studies Study information below may be from another EMR and interpreted by another provider. Please see original notes in EMR for more complete details. EKG Summary: DATE/TIME OF SERVICE: 08/11/212007 : 1945PERFORMING LOCATION: [place] APPROVED REPORT Exam: Resting ECG Reason for Exam: SOB Patient Location: E HR:76 bpm ECG Measurements Heart Rate 76 AXIS GA 179 P 58 QRSd 86 QRS 12 QT 416 T9 QTc 466 Conclusion Sinus rhythm...normal P axis, V-rate 60- 99 Atrial premature complexes...SV complexes w/ short R-R intvls Low voltage, precordial leads...precordial leads <1.0mV Echocardiogram Summary: dmission Date: 04/15/21 : 1945 Age: 75 APPROVED REPORT EXAM: Comprehensive 2D, Doppler, and color-flow Echocardiogram Patient Location: Out-Patient Shell Grader: Sabina Rios RDCS (AE) Indications: Edema Other Information Study Quality: Adequate Conclusion Normal left ventricular wall thickness and chamber size. Estimated ejection fraction is 60 to 65%. Wall motion is normal Normal right ventricular size and systolic function Both atria are normal in size There is no structural or hemodynamically significant valvular disease Mildly dilated ascending aorta measuring 3.91 cm Estimated right ventricular systolic pressure is 32 mmHg Anesthesia Assessment and Plan Anesthesia History Personal History: No History of Anesthesia Complications Family History: No Family History of Anesthesia Complications Exercise Tolerance Exercise Tolerance: Metabolic Equivalents>4 Pertinent Negatives Pertinent Negatives: No Symptoms of GERD Cardiac & Pulmonary Exam Cardiac Exam: Normal S1/S2 Heart Sounds Pulmonary Exam: Clear Bilateral Breath Sounds Implantable Cardiac Device Does patient have a Pacemaker or an ICD?: No Airway Exam Known Difficult Airway: No Mallampati Class: 2 Mouth Opening: Normal (> 3cm) Thyromental Distance: Greater than 3 cm Neck Range of Motion: Full ROM Neck Circumference: Normal Teeth Condition: Removable Dentures/Plates Upper and Removable Dentures/Plates Lower ASA Classification ASA Score: ASA 3 Emergency Case?: No NPO Status NPO Status: NPO Clears >2 hours, Solids >8 hours Anesthesia Plan Resuscitation Status: Full Code Anesthesia Technique: General Anesthesia Airway Planned: Endotracheal Tube Monitors Used: Standard Monitors
[2021-09-24] MEDS: Lidocaine 1% Multi-Dose 50 ML VIAL (09:30)
--- NOTE | 2021-09-24 09:35 | PAPNONF_PTH ---
PATIENT: Torsten Portillo LOC: [facility] U#:[id number] AGE/SX: 75/M ROOM: RE09/24/[address]: Idania Reddy MD : 1945 BED: DIS: 09/24/2021 SPEC #: [id number] RECD: 09/24/21 12:57 STATUS: EFREN REQ #: [id number] SHAWN: 09/24/21 09:[address]: Idania Reddy DEPT: FOR[facility]LY [facility], [facility] Cytology RECD BY: Cindy Lima ENTERED: 09/24/21 12:58 SP TYPE: PAPBOOKER COREY DR: Adrienne Garcia MD, DC Tissues: 1 - BODY FLUID CYTO(NOT S/U/N/EM)[facility] Procedures: BODY FLUID CYTO(NOT SPU/UR/NIP/ENDOM)[facility] Comments: [id number] (TOTAL VOLUME + 50 cm, SENT FRESH)
[2021-09-24] MEDS: ePHEDrine 25 MG/5 ML Syringe IVP (10:32)
--- NOTE | 2021-09-24 10:38 | W.ANESPOSTOP ---
Postoperative Evaluation Date, Time and Location Date Performed: 09/24/21 Time Performed: 10:38 Patient Location: PACU Vital Signs Most Recent Imported Vital Signs: Most Recent Vital Signs Temp Pulse Resp BP Pulse Ox 36.4 C L 58 L 14 88/42 L 94 09/24/21 10:20 09/24/21 10:20 09/24/21 10:20 09/24/21 10:20 09/24/21 10:20 Pain Score Most Recent Pain Score: Most Recent Pain Score Pain Level 2 09/24/21 07:38 Assessment Mental Status: Awake (Alert & Oriented to Patient Baseline) Airway and Respiratory Function: Patent airway with normal (patient baseline) respiratory exam Cardiovascular Function: Hemodynamically Stable Hydration Status: Adequately Hydrated Nausea & Vomiting: No Nausea or Vomiting Pain: Pt. Denies Any Pain Peripheral Nerve Block: Patient did not receive a nerve block
--- NOTE | 2021-09-24 10:50 | W.PM.OP ---
Date of service: 09/24/21 Time of Service: 09:15 Operative Note Operative Note PRE-OP DIAGNOSIS: RUL collapse Refer to Anesthesia Record Procedure Description: Bronchoscopy Date:09/24/21 Time:914 Indication: RUL collapse Procedure performed: Flexible bronchoscopy with BAL Sedation plan: General anesthesia Medications used: see anesthesia report Informed consent was obtained after the risks and benefits or the procedure were discussed. A proper and complete OR compliant time out was performed. The therapeutic 6.2mm Olympus bronchoscope was inserted through the endotracheal tube.The bronchoscope was inserted into the airways, were 2cc in total of 1% topical lidocaine was used the anesthetize the airways. The trachea was midline and without lesion or injury. The mucosa appeared normal and there were no signs of tracheomalacia. The david was sharp. All bronchial subsegments were visualized within each lobe. All subsegments were normal in appearance with mild amounts of white, easyto suction secretions. The RUL was erythematous and friable in appearance. There was some oozing present after BAL of the RUL that was treated with 30cc of cold saline and visualized resolution of any bleeding. Given the friability and easy bleeding seen with simple scope irritation I elected not to perform any biopsies. There were no lesions or masses seen and the entire RUL - including apical, anterior and posterior subsegments with no signs of any masses. A bronchoalveolar lavage was performed in the RUL. A total of 180 cc of saline was administered with a return of 20 cc. The fluid was clear with some mucus plugs present. The BAL sample was unfortunately remixed with the sterile normal saline in a sterile basin. As everything was sterile, I did send the entire contents of the basin to the lab but will interpret this with caution. The sample will also be extremely dilute. I was able to collect bronchial washings that was not tampered with. The bronchoscope was then removed and the case terminated. The patient was taken to PACU in stable condition. Samples collected: RUL BAL, bronchial washings Testing ordered:cell diff, bacterial, fungal and AFB culture on BAL and washings. Cytolopathology ordered on BAL sample. Complications: Mild bleeding or RUL with resolution by cold saline instillation. Idania Reddy MD Pulmonary & Critical Care Medicine
[2021-09-26 08:25] LABS: Gram Smear Result Neutrophils Present
[2021-09-27 16:27] LABS: Path Review Fluid, other See Comments
[2021-10-22 09:47] LABS: Fungus Smear No Fungi Seen
== END 2021-09-24 12:15 | disposition home or self-care (01) ==
PROVIDERS: PCP Family Medicine; Visit Provider Student in an Organized Health Care Education/Training Program
PROC: 0BJ08ZZ Inspection of Tracheobronchial Tree, Via Natural or Artificial Opening Endoscopic (ICD-10-PCS; CPT 31622; principal; 2021-09-24 09:00)
DX: J98.19 Other pulmonary collapse (principal); I10 Essential (primary) hypertension; J84.09 Other alveolar and parieto-alveolar conditions
CPT/HCPCS: 31624; 80162; 87070; 87102; 87116; 87205; 87206; 88104; J1100; J2001; J2250; J2405; J2704

== ENCOUNTER → 2022-02-15 00:49 | Outpatient (CLI) | payer MEDICARE, SELFPAY ==
--- NOTE | 2022-02-15 08:00 | DI.CT_ITS ---
Exam(s) CT CHEST WO EXAM: CT CHEST WO CLINICAL HISTORY: follow up abnormal chest CT - RUL collapse,CONSOLIDATION,J18.1. TECHNIQUE: Imaging protocol: Axial computed tomography images were obtained and coronal and sagittal reformatted images were created and reviewed. COMPARISON: CT CT CHEST PE CTA from 08/11/2021 CR XR CHEST 2V PA LATERAL from 09/13/2021 FINDINGS: The examination is limited due to patient motion artifact. Tracheobronchial tree: Patent where visualized. No definite endobronchial lesion is identified. Pulmonary parenchyma: There is been for further clearing of the right upper lobe with a small persist ent opacity in present. Bronchiectasis is present. No other pulmonary infiltrates are seen. Mediastinum and Stephanie: No dominant adenopathy or fluid collection. The esophagus is unremarkable. Thyroid gland: Unremarkable. Pleura: No effusion or pneumothorax. Heart: Cardiomegaly. Coronary artery calcifications are present. No pericardial effusion. Aorta: Thoracic aorta non-dilated. Atherosclerosis is present. Upper abdomen: There are left renal cysts present. There is a duodenal diverticulum adjacent to the head of the pancreas. Lymph nodes: Within normal limits. Soft tissues: Unremarkable. Bones:Within normal limits for the patient's age. There are bilateral shoulder replacements present. IMPRESSION: 1. Continued aeration of the right upper lobe with mild persistent opacity and bronchiectasis present . 2. No definite endobronchial lesion is seen at this time. RADIATION DOSE DELIVERED: 787.93mGy.cm Total DLP 787.93mGy.cm Total DLP DATA REPOSITORY: All CT scans at this facility are submitted to the National Radiology Data Registry (NRDR) Dose Index Registry (DIR) with the [employer] (ACR). RADIATION OPTIMIZATION: All CT scans at this facility use at least one of these dose optimization te chniques: automated exposure control; mA and/or kV adjustment per patient size (includes targeted exa ms where dose is matched to clinical indication); or iterative reconstruction.
== END ==
PROVIDERS: PCP Family Medicine; Visit Provider Student in an Organized Health Care Education/Training Program
DX: J18.1 Lobar pneumonia, unspecified organism (principal); J47.9 Bronchiectasis, uncomplicated
CPT/HCPCS: 71250

== ENCOUNTER → 2022-02-15 16:10 | Outpatient (CLI) | payer MEDICARE, SELFPAY ==
--- NOTE | 2022-02-15 13:27 | DI.US_ITS ---
Exam(s) US EXTREMITY VENOUS BI EXAM: US EXTREMITY VENOUS BI CLINICAL HISTORY: check for DVT, edema, R60.9, acute embolism and thrombosis, I82.409. TECHNIQUE: Bilateral lower extremity venous ultrasound performed using grayscale, color-flow, and sp ectral Doppler analysis. COMPARISON: No exams were available for comparison FINDINGS: The right common femoral and femoral veins demonstrate normal compressibility, augmentation, and colo r Doppler. There is a 3.4 cm long occlusive thrombus seen in the right popliteal vein. The examinat ion from 08/16/2021, shows a thrombus extending from the proximal femoral vein into the popliteal vein. The posterior tibial veins are patent. The saphenofemoral junctions are unremarkable. There is a 7. 2 x 1.3 x 4.8 cm right Toure cyst. The soft tissues are unremarkable. The left common femoral, femoral and popliteal veins demonstrate normal compressibility, augmentation , and color Doppler. The posterior tibial veins are patent. The saphenofemoral junctions are unremark able. There is a 6.1 x 2.2 x 4.7 cm left Toure's cyst. The soft tissues are unremarkable. IMPRESSION: 1. 3.4 cm long right popliteal vein DVT. While this may be residual from the thrombus from 08/16/2021, a new acute DVT cannot be excluded. 2. No evidence of a left lower extremity DVT. 3. Bilateral Toure's cysts. DATA REPOSITORY:
== END ==
PROVIDERS: PCP Family Medicine; Visit Provider Family Medicine
DX: M71.22 Synovial cyst of popliteal space [Baker], left knee (principal); M71.21 Synovial cyst of popliteal space [Baker], right knee; I82.431 Acute embolism and thrombosis of right popliteal vein
CPT/HCPCS: 93970

== ENCOUNTER → 2022-02-28 13:19 | Outpatient (BNVA) | payer MEDICARE, SELFPAY | PROVIDERS: PCP Family Medicine; Referring Provider Family Medicine; Visit Provider Student in an Organized Health Care Education/Training Program | DX: I10 Essential (primary) hypertension (principal); Z79.01 Long term (current) use of anticoagulants; M17.11 Unilateral primary osteoarthritis, right knee; M17.12 Unilateral primary osteoarthritis, left knee | CPT/HCPCS: 99213 ==

== ENCOUNTER 2022-03-04 00:53 | Outpatient (CLI) | payer MEDICARE, SELFPAY ==
[2022-03-04 10:01] LABS: HCT 37.8 % (40.0-50.0); HGB 12.5 g/dL (13.5-17.5); MCH 28.9 pg (27.0-33.0); MCHC 33.1 % (32.0-36.0); MCV 87 fL (80-95); MPV 8.7 fL (8.0-11.0); Platelet Count 239 10^3/uL (130-400); RBC 4.33 10^6/uL (4.36-5.78); RDW 12.8 % (11.8-14.1); WBC 5.96 10^3/uL (4.4-10.8)
[2022-03-04 10:36] LABS: Anion Gap 6.4 mmol/L (3-11); BUN 22 mg/dL (7-18); CO2 31.6 mmol/L (21.0-32.0); CREATININE 1.3 mg/dL (0.70-1.30); Calcium 8.7 mg/dL (8.5-10.1); Chloride 102 mmol/L (98-107); Estimated GFR 57.29 (mL/min/1.73m2); Glucose 105 mg/dL (74-106); Potassium 3.4 mmol/L (3.5-5.1); Sodium 140 mmol/L (136-145)
== END 2022-03-04 00:54 | disposition home or self-care (01) ==
LOC: LBO 00:54
PROVIDERS: PCP Family Medicine; Visit Provider Student in an Organized Health Care Education/Training Program
DX: M25.562 Pain in left knee (principal); M17.12 Unilateral primary osteoarthritis, left knee; Z01.818 Encounter for other preprocedural examination; Z01.812 Encounter for preprocedural laboratory examination
CPT/HCPCS: 36415; 80048; 85027

== ENCOUNTER 2022-03-08 09:48 | Day surgery (SDC) | payer MEDICARE, SELFPAY ==
[2022-03-08] VITALS (12 sets, daily range): BP systolic 131–148; BP diastolic 66–95; PULSE 63–83; RESP 12–22; TEMP 36.1–36.6; O2SAT 95–99; BMI 32.4
--- NOTE | 2022-03-08 10:18 | W.ANESPRE ---
General Info Date of Service Date Performed: 03/08/22 Height: 6 ft 4 in Weight: 121 kg Body Mass Index (BMI): 32.4 Surgical Procedure: Operation Date: 03/08/22 12:40 Proposed Procedure Side Surgeon p Knee Total Arthroplasty Cementless PS Left Santosh Lugo MD Actual Procedure Side Surgeon p Knee Total Arthroplasty Cementless PS Left Santosh Lugo MD Pre-Op Diagnosis Post-Op Diagnosis OA LEFT KNEE OA LEFT KNEE Meds Allergies and Home Medications Allergies Allergy/AdvReac Type Severity Reaction Status Date / Time No Known Allergies Allergy Verified 03/07/22 12:16 Home Medication Medication Instructions Recorded aspirin 81 mg tablet,delayed 81 mg PO DAILY 11/26/12 release (Aspir-) calcium carbonate 600 mg calcium 600 mg PO DAILY 11/26/12 (1,500 mg) tablet (Caltrate 600) potassium chloride 20 mEq See Rx Instructions .Route 07/26/21 tablet,extended .COMPLEX #90 tabs release(part/cryst) (Klor-Con M) atorvastatin 20 mg tablet 20 mg PO DAILY #90 tabs 08/04/21 albuterol sulfate 90 mcg/actuation 2 puff inhalation Q8H #108 grams 08/18/21 aerosol inhaler chlorthalidone 25 mg tablet 25 mg PO DAILY #90 tab-caps 08/27/21 folic acid 1 mg tablet 1 mg PO DAILY #100 tab-caps 08/27/21 losartan 100 mg tablet (Cozaar) 100 mg PO DAILY #90 tab-caps 08/27/21 apixaban 5 mg tablet (Eliquis) 5 mg PO BID #30 tabs 10/07/21 metoprolol succinate 100 mg 100 mg PO DAILY #90 tabs 10/08/21 tablet,extended release 24 hr Current Visit Medications: Current Medications Generic Name Dose Route Start Last Admin Trade Name Freq PRN Reason Stop Dose Admin Acetaminophen 1,000 mg 03/08/22 06:00 Acetaminophen 500 Mg Tab PO 03/08/22 16:00 PREOP PITER Acetaminophen 1,000 mg 03/08/22 14:00 Acetaminophen 500 Mg Tab PO TID PITER Celecoxib 400 mg 03/08/22 06:00 Celecoxib 200 Mg Cap PO 03/08/22 16:00 PREOP PITER Celecoxib 200 mg 03/08/22 20:00 Celecoxib 200 Mg Cap PO BID PITER Docusate Sodium 100 mg 03/08/22 07:35 Docusate Sodium 100 Mg Cap PO BID PRN PRN Constipation Gabapentin 300 mg 03/08/22 06:00 Gabapentin 300 Mg Cap PO 03/08/22 16:00 PREOP PITER Gabapentin 300 mg 03/08/22 22:00 Gabapentin 300 Mg Cap PO HS PITER Hydromorphone HCl 0.5 mg 03/08/22 07:35 Hydromorphone 2 Mg/Ml Syr IVP Q2H PRN PRN Ringer's Solution 1,000 mls @ 80 mls/hr 03/08/22 06:00 IV 04/06/22 23:59 INFUSION PITER Cefazolin Sodium/Dextrose 2 gm in 50 mls @ 100 mls/hr 03/08/22 06:00 Ancef Duplex IVPB 03/08/22 16:00 PREOP PITER Tranexamic Acid 1,000 mg/ 60 mls @ 360 mls/hr 03/08/22 06:00 Sodium Chloride IVPB 03/08/22 16:00 PREOP PITER Cefazolin Sodium/Dextrose 1 gm in 50 mls @ 100 mls/hr 03/08/22 08:00 Ancef Duplex IVPB 03/09/22 00:29 Q8H [facility] IV Miscellaneous Supplies 1 each 03/08/22 06:00 Iv Access IV 04/06/22 23:59 DIRECTED PITER Ondansetron HCl 4 mg 03/08/22 07:35 Ondansetron 4 Mg/2 Ml Vial IVP Q6H PRN PRN Nausea Oxycodone HCl 0 mg 03/08/22 07:35 Oxycodone 5 Mg Tab PO Q3H PRN PRN Pain Pantoprazole Sodium 40 mg 03/09/22 07:30 Pantoprazole 40 Mg Tabcr PO DAILY@0730 PITER Polyethylene Glycol 17 gm 03/08/22 07:35 Polyethylene Glycol 3350 17 Gm Packet PO BID PRN PRN Constipation Sodium Chloride 0 ml 03/08/22 06:00 Normal Saline Flush 10 Ml Syr IV 04/06/22 23:59 PRN PRN Sodium Chloride 0 ml 03/08/22 06:00 Normal Saline 10 Ml Vial IJ 04/06/22 23:59 DIRECTED PRN Sterile Water 0 ml 03/08/22 06:00 Water,Injection,Sterile 10 Ml Vial IJ 04/06/22 23:59 DIRECTED PRN PFSH Active Problems Active Problems: Problem Status Onset Code Actinic keratoses 09/07/17 L57.0 Hypercholesterolemia 09/06/16 E78.00 Male erectile disorder N52.9 Osteopenia 05/11/03 M85.80 Tubular adenoma 10/20/15 D36.9 Prostatitis N41.9 Chronic left shoulder pain 08/11/15 M25.512, G89.29 Arthritis M19.90 Polyneuropathy G62.9 BPH (benign prostatic hyperplasia) N40.0 Edema R60.9 Primary osteoarthritis of left knee M17.12 Primary osteoarthritis of right knee M17.11 Leg edema, right R60.0 Cellulitis L03.90 Consolidation of right upper lobe of lung J18.1 Pneumonia J18.9 DVT (deep venous thrombosis) I82.409 Medical History Medical History Abnormal endocrine laboratory test finding Abnormal laboratory test elevated MCV Acute bilateral low back pain 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), electrolyte disorder associated w/alcohol Arthritis Chronic left shoulder pain 08/11/15 DVT (deep venous thrombosis) (R) Essential hypertension Essential hypertension (07/31/13) Folate deficiency Hx of fracture of left hip 3 screws Hypokalemia 11/15/16 Kidney stone Male erectile disorder Osteopenia Prostatitis in the past Shoulder pain 08/01/13 replacement 11/2014 Medical History Comments:: hard of hearing Surgical History Surgical History ankle repair R ANKLE RECONSTRUCTION Closed fracture of unspecified part of neck of femur 05/11/03 left femoral neck fracture [facility] [place]oscopy - MAC (~2005) neg Rotator Cuff Repair RIGHT SHOULDER-VIKAS CAP LEFT SHOULDER-VIKAS CAP 11/26 Status post hernia repair right inguinal hernia ~20s Tobacco Smoking/Tobacco Use Status: Never Passive smoking exposure: No Second hand exposure: No Alcohol Alcohol Intake: former Substance Use Substance use: Never Substance use type: does not use Vital Signs and Lab Results Vital Signs Most Recent Vital Signs in EMR: Most Recent Vital Signs Temp Pulse Resp BP Pulse Ox 36.4 C L 65 20 134/93 H 98 03/08/22 10:00 03/08/22 10:00 03/08/22 10:00 03/08/22 10:00 03/08/22 10:00 Lab Results Blood Type / Crossmatch: No Data to Display Complete Blood Count: White Blood Count 5.96 10^3/uL (4.4-10.8) 03/04/22 09:55 Red Blood Count 4.33 10^6/uL (4.36-5.78) L 03/04/22 09:55 Hemoglobin 12.5 g/dL (13.5-17.5) L 03/04/22 09:55 Hematocrit 37.8 % (40.0-50.0) L 03/04/22 09:55 Platelet Count 239 10^3/uL (130-400) 03/04/22 09:55 Complete Metabolic Panel: Sodium Level 140 mmol/L (136-145) 03/04/22 09:55 Potassium Level 3.4 mmol/L (3.5-5.1) L 03/04/22 09:55 Chloride Level 102 mmol/L (98-107) 03/04/22 09:55 Carbon Dioxide Level 31.6 mmol/L (21.0-32.0) 03/04/22 09:55 Blood Urea Nitrogen 22 mg/dL (7-18) H 03/04/22 09:55 Creatinine 1.3 mg/dL (0.70-1.30) 03/04/22 09:55 Calcium Level 8.7 mg/dL (8.5-10.1) 03/04/22 09:55 Glucose Level 105 mg/dL (74-106) 03/04/22 09:55 Liver Function Panel: No Data to Display Coagulation Panel: No Data to Display Cardiac Panel: No Data to Display Arterial Blood Gas: No Data to Display Venous Blood Gas: No Data to Display Pancreas Panel: No Data to Display Thyroid Panel: No Data to Display Infectious Disease: No Data to Display Blood Cultures: No Data to Display Toxicology Panel: No Data to Display Imaging and Studies Imaging and Studies Study information below may be from another EMR and interpreted by another provider. Please see original notes in EMR for more complete details. EKG Summary: DATE/TIME OF SERVICE: 08/11/212007 : 1945PERFORMING LOCATION: CT APPROVED REPORT Exam: Resting ECG Reason for Exam: SOB Patient Location: E HR:76 bpm ECG Measurements Heart Rate 76 AXIS CA 179 P 58 QRSd 86 QRS 12 QT 416 T9 QTc 466 Conclusion Sinus rhythm...normal P axis, V-rate 60- 99 Atrial premature complexes...SV complexes w/ short R-R intvls Low voltage, precordial leads...precordial leads <1.0mV Echocardiogram Summary: dmission Date: 04/15/21 : 1945 Age: 75 APPROVED REPORT EXAM: Comprehensive 2D, Doppler, and color-flow Echocardiogram Patient Location: Out-Patient Training Professional: Sabina Rios RDCS ([place]) Indications: Edema Other Information Study Quality: Adequate Conclusion Normal left ventricular wall thickness and chamber size. Estimated ejection fraction is 60 to 65%. Wall motion is normal Normal right ventricular size and systolic function Both atria are normal in size There is no structural or hemodynamically significant valvular disease Mildly dilated ascending aorta measuring 3.91 cm Estimated right ventricular systolic pressure is 32 mmHg Anesthesia Assessment and Plan Anesthesia History Personal History: No History of Anesthesia Complications Family History: No Family History of Anesthesia Complications Exercise Tolerance Exercise Tolerance: Metabolic Equivalents>4 Cardiac & Pulmonary Exam Cardiac Exam: Normal S1/S2 Heart Sounds Pulmonary Exam: Clear Bilateral Breath Sounds Implantable Cardiac Device Does patient have a Pacemaker or an ICD?: No Airway Exam Known Difficult Airway: No Mallampati Class: 2 Mouth Opening: Normal (> 3cm) Thyromental Distance: Greater than 3 cm Neck Range of Motion: Full ROM Neck Circumference: Normal Teeth Condition: Removable Dentures/Plates Upper and Removable Dentures/Plates Lower ASA Classification ASA Score: ASA 3 Emergency Case?: No NPO Status NPO Status: NPO Clears >2 hours, Solids >8 hours Anesthesia Plan Resuscitation Status: Full Code Anesthesia Technique: Spinal Anesthesia Airway Planned: Natural Airway Monitors Used: Standard Monitors
[2022-03-08] MEDS: Lactated Ringers 1,000 ML 80 ML IV (10:32)
[2022-03-08] MEDS: Acetaminophen 500 MG TAB 1000 MG PO (10:37)
[2022-03-08] MEDS: Celecoxib 200 MG CAP 400 MG PO (10:38)
[2022-03-08] MEDS: Gabapentin 300 MG CAP PO (10:38)
[2022-03-08] MEDS: ceFAZolin 2 GM/50 ML BAG IVPB (12:17)
--- NOTE | 2022-03-08 12:48 | W.ANESNERVE ---
Nerve Block Single Injection Procedure Date and Time Date Performed: 03/08/22 Procedure Start: 11:21 Location Where Procedure Performed Procedure Location: Day Surgery Unit Reason Performed: Postoperative Analgesia Requesting Provider: Santosh Lugo Timeout Performed Timeout Performed: Yes Monitoring Used ECG, Blood Pressure, SpO2 and See EMR for corresponding vital signs Sterility Sterility: Hand Hygiene, Surgical Cap, Surgical Mask, Sterile Gloves, Eye Protection and Chlorhexidine Sedation Given During Procedure Sedation Given (Indicate Dose Given): No Sedation given Patient Mental Status Patient Mental Status: Awake Nerve Block 1st Nerve Block: Laterality: Left Block Type: Adductor Canal Needle / Catheter Used: 120mm SonoPlex II Local Anesthetic Bolus (Indicate Dose Given): Lidocaine used for local infiltration of skin and Bupivacaine 0.25% Dose:: 15ML Additives (Indicate Dose Given): None Ultrasound: Sterile probe cover and gel used Ultrasound Image Saved?: Yes Nerve Stimulator: Not Used Paresthesia: None Procedure Tolerated: No Complications and Patient tolerated well Procedure Outcome: Successful Performed By: Jennifer Hanna Supervised By: Pretty Warren
--- NOTE | 2022-03-08 14:32 | PDOC.DSDIS_ITS ---
Discharge Plan Disposition Patient Disposition: HOME Condition: Good Discharge Details Reason For Visit: L TKA Attending Provider: Santosh Lugo Primary Care Provider: Adrienne Garcia Home Meds and New Rx's Prescriptions: New acetaminophen 500 mg tablet 1,000 mg PO TID Qty: 90 3RF celecoxib 200 mg capsule 200 mg PO BID Qty: 60 0RF pantoprazole 40 mg tablet,delayed release (DR/EC) 40 mg PO DAILY Qty: 30 0RF gabapentin 300 mg capsule 300 mg PO QHS Qty: 14 0RF oxycodone 5 mg tablet 5 mg PO Q4H MDD 6 tabs PRN (Reason: pain) Qty: 20 0RF Continued aspirin [Aspir-81] 81 MG tablet,delayed release (DR/EC) 81 mg PO DAILY calcium carbonate [Caltrate 600] 600 MG tablet 600 mg PO DAILY Rx Instructions: REPORTS TAKING 1.5GM TAB DAILY. potassium chloride [Klor-Con M20] 20 mEq tablet,ER particles/crystals See Rx Instructions .ROUTE .COMPLEX Qty: 90 3RF Dose Instruction: TAKE 1 TABLET DAILY Rx Instructions: TAKE 1 TABLET DAILY atorvastatin 20 mg tablet 20 mg PO DAILY Qty: 90 4RF albuterol sulfate 90 mcg/actuation HFA aerosol inhaler 2 puff inhalation Q8H Qty: 108 4RF losartan [Cozaar] 100 mg tablet 100 mg PO DAILY Qty: 90 4RF folic acid 1 mg tablet 1 mg PO DAILY Qty: 100 12RF chlorthalidone 25 mg tablet 25 mg PO DAILY Qty: 90 4RF Eliquis 5 mg tablet 5 mg PO BID Qty: 30 0RF metoprolol succinate 100 mg tablet extended release 24 hr 100 mg PO DAILY Qty: 90 3RF Rx Instructions: in place of atenolol Discharge Instructions Additional Instructions: Total Knee Discharge Instructions Activity: The most important activity is to walk. You should try to take short walks a few times a day. It is important that when resting you work on keeping the knee straight. Avoid putting a pillow behind the knee as this will encourage flexion. Work on range of motion exercises as provided by Physical Therapy. - Start outpatient physical therapy within 2 weeks. - You should wear the DENISE hose on both legs for 2 weeks. You may remove these at night. You may also use any compression sock in place of the DENISE hose. - Utilize [employer] to review exercises, see videos on exercises and obtain basic information pertaining to your surgery and your recovery. Dressing: Remove the Sukumar wrap by 2 days after your surgery and put on the DEINSE stocking given to you from the hospital. Keep the surgical dressing (underneath the SUKUMAR wrap) in place for at least one week. After the first week it may be removed and replaced with light gauze and tape or nothing. The wound and dressing may get wet after 3 days but avoid soaking the dressing or otherwise it will need to be changed. Many people prefer covering the dressing with cling wrap (saran wrap) to minimize it from getting soaked. If it gets wet, just pat dry. If it starts to peel off then it will need to be changed. Medications: - You should take Tylenol and anti-inflammatory Celebrex as your primary pain control medications. If the Celebrex is too expensive or not covered, please call the office for another alternative (Advil/Ibuprofen or Naproxen/Aleve) - You have been prescribed a stronger pain medication Oxycodone for breakthrough pain, take as needed as prescribed. - You have also been prescribed a stomach acid reduction agent Pantoprozole to help reduce stomach acid and reflux. - You have been prescribed Gabapentin to take at night for restlessness and nerve pain. - You will be continue your apixaban for DVT prevention unless instructed othe rwise. You will restart that tonight. - If you have constipation you should take Colace or Miralax (both [id number]). It takes most people 3-4 days to have a bowel movement. Follow-up: 2 weeks If you have any acute concerns or questions, please do not hesitate to contact the office at [phone]. You may contact Dr. Lguo with any questions after hours through the hospital at [phone] or on his cell phone at [phone]. Referrals: Santosh Lugo MD [ [facility] STAFF PHYSICIAN] - Equipment/Supplies: Walker Activity:: Activity as Tolerated Shower/Bathe:: 72 hours Diet:: As Tolerated Discharge Orders Discharge Orders: Discharge Order (Routine); Ordered 03/08/22 Ordered By: Santosh Lugo
[2022-03-08] MEDS: fentaNYL 100 MCG/2 ML VIAL IVP (15:02)
--- NOTE | 2022-03-08 15:51 | W.ANESPOSTOP ---
Postoperative Evaluation Date, Time and Location Date Performed: 03/08/22 Time Performed: 15:51 Patient Location: Day Surgery Unit Vital Signs Most Recent Imported Vital Signs: Most Recent Vital Signs Temp Pulse Resp BP Pulse Ox 36.4 C L 65 12 148/73 H 95 03/08/22 15:15 03/08/22 15:30 03/08/22 15:30 03/08/22 15:30 03/08/22 15:30 Pain Score Most Recent Pain Score: Most Recent Pain Score Pain Level 6 03/08/22 15:30 Assessment Mental Status: Awake (Alert & Oriented to Patient Baseline) Airway and Respiratory Function: Patent airway with normal (patient baseline) respiratory exam Cardiovascular Function: Hemodynamically Stable Hydration Status: Adequately Hydrated Nausea & Vomiting: No Nausea or Vomiting Pain: Pain is tolerable per patient Peripheral Nerve Block: Regional nerve block not resolved at time of post operative discharge
[2022-03-08] MEDS: oxyCODONE 5 MG TAB PO (15:55)
--- NOTE | 2022-03-08 16:37 | PT.INIE ---
Date of service: 03/08/22 Time of Service: 16:37 PT Notes Visit Reasons: L TKA Physical Therapy Day Surgery Initial Evaluation Date: 03/08/2022 Referring Doctor: NINA Chris PT Orders: PT CONSULT: S/P ortho surgery Precautions: WBAT on the L LE with AD. Patient Profile/Admitting Diagnosis: Patient is a 76-year-old male patient with primary unilateral osteoarthritis of the L knee and is S/P left total knee arthroplasty on postoperative day 0. PMHX: All Active Problems? Actinic keratoses (Chronic 09/07/17) Hypercholesterolemia (Chronic 09/06/16) Male erectile disorder (Chronic) Osteopenia (Chronic 05/11/03) -1.1/-0.3/0.1 Tubular adenoma (Chronic 10/20/15) Prostatitis (Acute) Chronic left shoulder pain (Acute 08/11/15) Arthritis (Acute) Polyneuropathy (Acute) BPH (benign prostatic hyperplasia) (Chronic) Edema (Acute) Primary osteoarthritis of left knee (Acute) Primary osteoarthritis of right knee (Chronic) Leg edema, right (Acute) Cellulitis (Acute) Consolidation of right upper lobe of lung (Acute) Pneumonia (Acute) DVT (deep venous thrombosis) (Chronic) Medical History? 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 ankle repair R ANKLE RECONSTRUCTION Closed fracture of unspecified part of neck of femur 05/11/03 [place] [facility] [facility] [place] - MAC (~2005) neg Rotator Cuff Repair RIGHT SHOULDER-VIKAS CAP LEFT SHOULDER-VIKAS CAP 11/26 Status post hernia repair right inguinal hernia ~20s Social History/Home Situation: Patient lives with Christine in a private home with three steps to enter with no rails. Equipment Owned/DME: Standard walker that is too short for patient's height Subjective: Amazing! Patient is happy with how much better he can mpve without the pain. Christine said that patient wobbled and had been in considerable pain prior to surgery. Patient reports 0/10 pain in the R knee at rest and with weight bearing. Denies headache and chest pain. Initially felt alittle lightheaded but did better later in the walk. Objective: General Observation: Supine in bed. PREM wraps to L LE. Cryocuff to L knee. Mental Status: A and O x 4 Pain: 0/10 in the L knee ROM: Right Lower Extremity: Hip flexion WFL. Hip abduction WFL. Knee flexion WFL. Ankle dorsiflexion WFL. Ankle plantarflexion WFL. Left Lower Extremity: Hip flexion WFL. Hip abduction WFL. Knee flexion 5 degrees to 100 degrees. Knee extension -5 degrees. Ankle dorsiflexion WFL. Ankle plantarflexion WFL. Strength: Right Lower Extremity: Hip flexors 4/5. Hip abductors 4/5. Knee flexors 3-/5. Knee extensors 3-/5. Ankle dorsiflexors 4/5. Ankle plantarflexors 5/5. Left Lower Extremity:Hip flexors 5/5. Hip abductors 5/5. Knee flexors 5/5. Knee extensors 5/5. Ankle dorsiflexors 5/5. Ankle plantarflexors 5/5. Sensation: Intact as to pain and light touch in B LE Bed Mobility/Transfers: Supine to sit supervision Sit to stand supervision Stand to sit supervision Bed to chair supervision THERA EX: SLR to 60 degrees x 10 LAQ x 10 Seated hip flexion x 10 Ankle DF/PF x 10 Quads sets x 10 Gluteal sets x 10 Gait: 150 feet using FWW with stand by assist, step through heel-toe gait pattern without report of pain. Stairs: Up and down 6 x 4-inch steps and 4 x 6-inch steps while holding onto B rails with [id number]-[id number] pattern with no increase in pain requiirng just stand by assist. Balance: Static Sitting: Normal Dynamic Sitting: Normal Static Standing: Fair Dynamic Standing: Fair Special Tests: Mobility Limitations Standardized Measure [facility] AM-PAC 6 clicks Basic Mobility Inpatient Short Form: Raw Score: 24 CMS Score: 0 % deficit Informed Consent/Education: Patient instructed in purpose of PT consult. Education and training on initial set of exercises that can be done at home have been completed with patient with reference to the orthopedic packet given tot he patient. Assessment: Patient requires the use of a appropriately fitted front-wheeled walker to maximize independence and reduce fall risk at home. Patient presents with clinical signs and symptoms consistent with current/admitting diagnoses that have resulted to mobility limitations as demonstrated by the following impairment level findings: 1. Decreased strength to left knee major muscle groups 2. Impaired standing balance 3. Limitation of joint range of motion in left knee Impairments are contributing to the following functional limitations: 1. Inability to safely ambulate without assistive device 2. Increase completion time for mobility ADL performance 3. Increased fall risk Patient is assessed as a 33969 moderate complexity based on the following: History: 76-year-old male with impairment level findings, functional limitations, and past medical history as indicated above Examination: Demonstrable impairment in strength, balance, and mobility level with underlying impairments and functional limitations as documented above Presentation: Evolving Decision Makin moderate complexity Goals: N/A. PT evaluation and 1-2 treatment sessions only for functional mobility training using recommended AD and for HEP instruction. Plan of Care/Treatment Plan: N/A. PT evaluation and 1-2 treatment session only for functional mobility training using recommended AD and for HEP instruction. DISCHARGE RECOMMENDATIONS: [] Home with no services [] [] Home with services [specify] [X] Home with outpatient PT. Home when medically cleared by orthopedic surgeon. Consider outpatient PT services in order to maximize functional mobility outcomes and facilitate independent community ambulation without an assistive device. [] SNF for continued rehabilitation [] [] [facility] [] [] SNF versus LTC based on ability to participate and progress [] TREATMENT CODE/TIME: 09311 x 20 minutes, 37283 x 10 minutes beginning at 16:37 PM. Thank you for the opportunity to participate in the care of this patient. Valeria Martin PT, DPT, CLT [facility] [place], [place]
--- NOTE | 2022-03-08 22:51 | ROE_ITS ---
Date of service: 03/08/22 Time of Service: 14:00 Operative Note Operative Note DATE OF PROCEDURE: 03/08/22 PRE-OP DIAGNOSIS: Left Knee Osteoarthritis POST-OP DIAGNOSIS: same PROCEDURE: Left Total Knee Replacement SURGEON: Santosh Lugo ANESTHESIA TYPE: Spinal Refer to Anesthesia Record ESTIMATED BLOOD LOSS: 250 PATHOLOGY: none sent COMPLICATIONS: None Patient was transported to: PACU Patient's condition: stable Implants: 1. Depuy Attune Cruciate Retaining Femoral Component, Size 8 2. Depuy Attune Rotating Platform Tibial Component, Size 8 3. Depuy Attune 8x10 RP/CR Poly 4. Depuy Attune Patellar Component, Size 38 Indications: I have seen Louis in clinic for symptoms of LEFT knee arthritis, confirmed with radiographic findings. Louis has exhausted nonoperative methods and was having significant limitations in daily function and desired better function and less pain. I discussed the technical details of a knee replacement. I explained the risks of the procedure to include, but not limited to, bleeding, infection, pain, stiffness, fracture, damage to nerves and vessels, damage to muscles and tendons, loosening, need for repeat procedure, blood clot and cardiopulmonary demise. Despite these risks, Louis elected to proceed. Findings: There was significant signs of arthritis throughout the knee with large osteophytes throughout. There was a large popliteal cyst which was also evacuated from within the knee. Procedure Description: Louis was greeted in the preoperative holding area where the correct side was identified and marked. The consent was reviewed with the patient and signed. The history and physical was updated. All questions were answered. Preoperative mediacations were administered: Acetaminophen 1000mg, Celebrex 400mg, and Gabapentin 300mg. An adductor canal block was then administered by the anesthesia team in the PACU. Louis was taken back to the operating room. A spinal anesthestic was then administered. The patient was placed into the supine position on the operating room table. A nonsterile tourniquet was placed high onto the leg but only used for cementing. Posts were placed for positioning during the procedure. All bony prominences were well padded. Prophylactic antibiotics in the form of Cefazolin were administered. 1g of Tranxemic Acid was given intravenously within 30 minutes of incision. The right leg was then prepped with Chloraprep and draped in a standard fashion with impervious stockinette. A second prep with Chloraprep was performed prior to application of Iodine impregnated skin protection. A timeout to confirm correct identity, side and site, procedure, allergies, anesthesia, and medical concerns was performed. With the knee in some flexion, a midline incision was made overlying the knee. Full thickness skin flaps were raised once the extensor mechanism was encountered. These were raised medially and laterally. Any bleeding was controlled with electrocautery. Once the extensor mechanism was fully exposed, a medial parapatellar arthrotomy was performed in a flexed position. All bleeding from the arthrotomy and the geniculate arteries was coagulated. A medial subperiosteal peel was performed with electrocautery to the midcoronal plane. Due to the significant varus deformity the entire medial tibial plateau was exposed. The fat pad was removed while keeping the patellar tendon protected. The anterior distal femur synovium was removed for later visualization. The ACL and PCL were resected and the anterior horn of the lateral meniscus was transected. The knee was then flexed with the patella everted. Large osteophytes from the tibia were removed. Large osteophytes from the femur were removed. Using a step drill, and based on preoperative templating, the femoral canal was entered. This was done with a step drill without any difficulty. The intramedullary distal femoral cut guide was inserted, set to a 6 degree valgus cut and 9mm cut thickness. The distal femoral cut guide was then held in position and pinned. With the soft tissues protected, the distal cut was performed. This was passed over a few times to ensure a planar cut. I then turned attention to the tibia. The extramedullary guide was placed onto the leg. The distal aspect was slid medial to adjust for position of center of ankle and stay in line with shaft of the tibia. Approximately 3 degrees of posterior slope was kept in the proximal cutting guide. The center of the guide was aligned with the PCL. The stylus was used to assess cut thickness. The medial side, most involved side, was set for a 3mm cut. This was then held in position and pinned into place with 2 additional pins and a cross pin for stability. The medial and lateral collateral ligaments were protected and the cut was performed. With this completed, it was assessed and noted to be of appropriate dimensions. The guide was removed. A spacer block was inserted and the knee was brought into extension. The 8mm spacer block provided full extension, without hyperextension and with stability of both the medial and lateral collateral ligaments was assessed. The pins from the femur and the tibia were then removed. The distal femur was then sized. The anterior stylus was placed onto the lateral ridge of the anterior femur. This indicated a size 8 femur. The external rotation of the guide was adjusted to 3 degrees to match the epicondylar axis, perpendicular to Gustavo?s line. The 4-in-1 cutting guide was the placed. The posterior medial femur cut was evaluated and appeared of good thickness. The spacer block was inserted underneath the cutting guide and stability was confirmed in 90 degrees of flexion. An savannah wing was used to confirm appropriate position of the anterior cut to avoid notching. This cutting guide was ensured to be flush on the cut surface and then pinned into place with headed pins. While protecting the soft tissues, quad tendon, and collateral ligaments, the anterior and posterior cuts were performed with a saw. The central two pins were removed and the posterior and anterior chamfers were cut next. The notch-cutting guide was placed. This was pinned to lateralize the femoral component as much as possible while keeping it flush on the cut surface. This was then pinned into position and cut. A trial cruciate retaining femoral component was then inserted, impacted down to the cut surfaces, and the lug holes were drilled. A provisional trial tibial component was placed and the knee was brought through range of motion. The polyethylene was trialed until there was good flexion and extension with excellent stability to the medial and lateral collaterals. The patella was tracking without thumbs. The tibial cut surface was fully exposed. The medial and lateral menisci were removed. The tibia was then sized as a 8. The tibia had been previously marked during trialing to correspond to the center of the tibial component to help with rotation. The trial was aligned to this winter, approximately rotated to the medial 1/3rd of the tibial tubercle. The trial was pinned into place. The tibia was prepared with a reamer and a keel punch. The knee was then brought into extension and the patella was measured as 27mm. Using the patellar clamp and cut guide, this was resected to a flat surface with at least 13mm of thickness remaining. The size 38 patella fit the best. This was oriented and then clamped into position. The lugs were drilled. The trial components were removed. The final components, except for the polyethylene were opened on the back table. The periosteal and capsular tissues, especially posteriorly, around the knee were then systematically injected with a periarticular cocktail consisting of 246mg of Ropivacaine, 0.5mg of Epinephrine, 0.08mg of Clonidine, and 30mg of Ketorolac, diluted to 100cc.. The tourniquet was then inflated to 275mmHg. The knee was thoroughly irrigated with a pulse lavage and dried. On the back table, with the implants opened, the cement was mixed. 2 batches of medium viscosity cement were prepared with vacuum assistance. After the cement was ready a small amount was placed on to the back side of the tibial component at the keel. A small amount was placed onto the posterior flange of the femur. Cement was manual pressurized and impregnated into the cut surface of the tibia. The tibial component was then inserted into the cut surface and impacted into position. Excess cement was removed and the component was reimpacted. Again, excess cement was removed and our attention was then turned to the femur. The femoral cut surface was once again dried and cement was manually impacted into the cut surface. The femoral component was lined with the lug holes and impacted. Excess cement was removed. It was ensured to be down against the cut surface. The trial polyethylene was then inserted and the leg was brought out into full extension for the duration of the cement curing process, approximately 18min. Cement was lastly manually impacted into the cut surface of the patella and the patellar button was clamped into position and held. During this process attention was turned to the gutters of the knee and for all interfaces for any excess cement. While the cement was hardening, the knee was irrigated with Surgiphor chlorhexadine solution. This was allowed to sit in the knee for 3 minutes and then it was thoroughly irrigated with saline. After the cement had finally cured, approximately 18min, the clamp was removed from the patella and the knee was taken through range of motion. A size 10mm polyethylene component provided the best range of motion and stability with less than 2mm gapping with medial and lateral stress and full extension without sig nificant hyperextension. The patella was tracking with a no-thumbs technique. The trial poly was removed and once again the knee was checked for any loose, excess, or errant cement. The poly component was then inserted and impacted into position after cleaning and drying the tibial tray. The capsule was then reapproximated with a No. 1 Vicryl at multiple locations. The capsule was finally closed with a No. 2 Stratafix, barbed suture. The tourniquet was then released and the arthrotomy appeared watertight without significant bleeding. Deep tissues were then reapproximated with 0 Vicryl and 2-0 Monocryl. The skin was closed with a running 3-0 Monocryl in a subcuticular fashion. This was reinforced with skin glue. A Mepilex silver dressing was applied along with a [id number] PREM wrap. A CryoCuff was applied. Louis was transferred to the hospital bed without difficulty an suffering no apparent complication. Louis has a good prognosis. Physical therapy will start today and without restrictions, weight-bearing as tolerated. His home dose of Apixaban (5mg BID) will be used for DVT prophylaxis.
== END 2022-03-08 17:28 | disposition home or self-care (01) ==
PROVIDERS: PCP Family Medicine; Visit Provider Student in an Organized Health Care Education/Training Program
PROC: (CPT 27447; principal; 2022-03-08 12:30)
DX: M17.12 Unilateral primary osteoarthritis, left knee (principal); I10 Essential (primary) hypertension; I82.401 Acute embolism and thrombosis of unspecified deep veins of right lower extremity
CPT/HCPCS: 27447; C1776; 76942; 97162; 97530; J0690; J1100; J2250; J2405; J3010

== ENCOUNTER 2022-03-21 09:09 | Outpatient (CLI) | payer MEDICARE, SELFPAY ==
--- NOTE | 2022-03-21 09:00 | DI.RAD_ITS ---
Exam(s) XR KNEE LT 1V XR STANDING ALIGNMENT EXAM: XR STANDING ALIGNMENT CLINICAL HISTORY: f/u L TKA. TECHNIQUE: 2D digital imaging was performed. Standing AP views were performed from the pelvis throu gh the ankles. COMPARISON: CR XR STANDING ALIGNMENT from 03/26/2021 CR XR KNEE LT 1V from 03/21/2022 FINDINGS: BONES: No acute fracture is present. No bony destructive lesion is seen. Screws noted in left femora l neck. Leg length discrepancy: JOINTS: Left total knee prosthesis appears well aligned. No surrounding abnormal bony lucencies. Se wild narrowing and periarticular spurring of the lateral femoral tibial joint of the right knee. Mil [id number] degenerative changes at hips and ankles. Mild overall leg length discrepancy with the right femoral head projecting a few millimeter superior to the left. SOFT TISSUE: Soft tissue swelling around both ankles. IMPRESSION: Degenerative changes greatest in the right knee. . Mild leg length discrepancy. DATA REPOSITORY: RADIATION DOSE DELIVERED:
--- NOTE | 2022-03-21 09:00 | DI.RAD_ITS ---
Exam(s) XR KNEE LT 1V XR STANDING ALIGNMENT EXAM: XR STANDING ALIGNMENT CLINICAL HISTORY: f/u L TKA. TECHNIQUE: 2D digital imaging was performed. Standing AP views were performed from the pelvis throu gh the ankles. COMPARISON: CR XR STANDING ALIGNMENT from 03/26/2021 CR XR KNEE LT 1V from 03/21/2022 FINDINGS: BONES: No acute fracture is present. No bony destructive lesion is seen. Screws noted in left femora l neck. Leg length discrepancy: JOINTS: Left total knee prosthesis appears well aligned. No surrounding abnormal bony lucencies. Se wild narrowing and periarticular spurring of the lateral femoral tibial joint of the right knee. Mil [id number] degenerative changes at hips and ankles. Mild overall leg length discrepancy with the right femoral head projecting a few millimeter superior to the left. SOFT TISSUE: Soft tissue swelling around both ankles. IMPRESSION: Degenerative changes greatest in the right knee. . Mild leg length discrepancy. DATA REPOSITORY: RADIATION DOSE DELIVERED:
== END 2022-03-21 09:10 | disposition home or self-care (01) ==
LOC: DIORS 09:10
PROVIDERS: PCP Family Medicine; Referring Provider Family Medicine; Visit Provider Student in an Organized Health Care Education/Training Program
DX: Z96.652 Presence of left artificial knee joint (principal); Z47.1 Aftercare following joint replacement surgery
CPT/HCPCS: 73560; 77073

== ENCOUNTER 2022-04-18 02:39 | Outpatient (CLI) | payer MEDICARE, SELFPAY ==
[2022-04-18 09:54] LABS: HCT 36.7 % (40.0-50.0); HGB 11.9 g/dL (13.5-17.5); MCH 28.1 pg (27.0-33.0); MCHC 32.4 % (32.0-36.0); MCV 87 fL (80-95); Platelet Count 263 10^3/uL (130-400); RBC 4.24 10^6/uL (4.36-5.78); RDW 13.8 % (11.8-14.1); WBC 7.42 10^3/uL (4.4-10.8)
[2022-04-18 10:21] LABS: Anion Gap 7.5 mmol/L (3-11); BUN 26 mg/dL (7-18); CO2 30.5 mmol/L (21.0-32.0); CREATININE 1.4 mg/dL (0.70-1.30); Calcium 9.1 mg/dL (8.5-10.1); Chloride 103 mmol/L (98-107); Estimated GFR 52.41 (mL/min/1.73m2); Glucose 107 mg/dL (74-106); Potassium 3.6 mmol/L (3.5-5.1); Sodium 141 mmol/L (136-145)
== END 2022-04-18 02:40 | disposition home or self-care (01) ==
LOC: LBO 02:39
PROVIDERS: PCP Family Medicine; Visit Provider Student in an Organized Health Care Education/Training Program
DX: M17.11 Unilateral primary osteoarthritis, right knee (principal); Z96.652 Presence of left artificial knee joint; Z47.1 Aftercare following joint replacement surgery
CPT/HCPCS: 36415; 80048; 85027

== ENCOUNTER 2022-04-26 07:05 | Day surgery (SDC) | payer MEDICARE, SELFPAY ==
[2022-04-26] VITALS (10 sets, daily range): BP systolic 93–138; BP diastolic 45–87; PULSE 56–93; RESP 15–18; TEMP 36.1–36.6; O2SAT 95–100; BMI 31.6
--- NOTE | 2022-04-26 06:38 | W.ANESPRE ---
General Info Date of Service Date Performed: 04/26/22 Height: 6 ft 4 in Weight: 118 kg Body Mass Index (BMI): 31.6 Surgical Procedure: Operation Date: 04/26/22 09:25 Proposed Procedure Side Surgeon p Knee Total Arthroplasty Cemented CR (Size 8) Right Santosh Lugo MD Meds Allergies and Home Medications Allergies Allergy/AdvReac Type Severity Reaction Status Date / Time No Known Allergies Allergy Verified 04/26/22 07:29 Home Medication Medication Instructions Recorded aspirin 81 mg tablet,delayed 81 mg PO DAILY 11/26/12 release (Aspir-) calcium carbonate 600 mg calcium 600 mg PO DAILY 11/26/12 (1,500 mg) tablet (Caltrate 600) potassium chloride 20 mEq See Rx Instructions .Route 07/26/21 tablet,extended .COMPLEX #90 tabs release(part/cryst) (Klor-Con M) atorvastatin 20 mg tablet 20 mg PO DAILY #90 tabs 08/04/21 albuterol sulfate 90 mcg/actuation 2 puff inhalation Q8H #108 grams 08/18/21 aerosol inhaler chlorthalidone 25 mg tablet 25 mg PO DAILY #90 tab-caps 08/27/21 folic acid 1 mg tablet 1 mg PO DAILY #100 tab-caps 08/27/21 losartan 100 mg tablet (Cozaar) 100 mg PO DAILY #90 tab-caps 08/27/21 apixaban 5 mg tablet (Eliquis) 5 mg PO BID #30 tabs 10/07/21 metoprolol succinate 100 mg 100 mg PO DAILY #90 tabs 10/08/21 tablet,extended release 24 hr cholecalciferol (vitamin D3) 25 25 mcg PO DAILY 04/25/22 mcg (1,000 unit) tablet (Vitamin D3) acetaminophen 500 mg tablet 1,000 mg PO TID #90 tabs 04/26/22 celecoxib 200 mg capsule 200 mg PO BID #60 caps 04/26/22 gabapentin 300 mg capsule 300 mg PO QHS #14 caps 04/26/22 oxycodone 5 mg tablet 5 mg PO Q4H PRN pain #20 tabs 04/26/22 pantoprazole 40 mg tablet,delayed 40 mg PO DAILY #30 tabs 04/26/22 release Current Visit Medications: Current Medications Generic Name Dose Route Start Last Admin Trade Name Freq PRN Reason Stop Dose Admin Acetaminophen 1,000 mg 04/26/22 06:00 Acetaminophen 500 Mg Tab PO 04/26/22 16:00 PREOP PITER Celecoxib 400 mg 04/26/22 06:00 Celecoxib 200 Mg Cap PO 04/26/22 16:00 PREOP PITER Gabapentin 300 mg 04/26/22 06:00 Gabapentin 300 Mg Cap PO 04/26/22 16:00 PREOP PITER Tranexamic Acid 1,000 mg/ 60 mls @ 360 mls/hr 04/26/22 06:00 Sodium Chloride IVPB 04/26/22 16:00 PREOP [facility] Ringer's Solution 1,000 mls @ 80 mls/hr 04/26/22 06:00 IV 04/26/22 23:59 INFUSION PITER Cefazolin Sodium 3,000 mg/ 100 mls @ 200 mls/hr 04/26/22 06:00 Sodium Chloride IVPB 04/26/22 16:00 PREOP [facility] IV Miscellaneous Supplies 1 each 04/26/22 06:00 Iv Access IV 04/26/22 23:59 DIRECTED PITER Sodium Chloride 0 ml 04/26/22 06:00 Normal Saline Flush 10 Ml Syr IV 04/26/22 23:59 PRN PRN Sodium Chloride 0 ml 04/26/22 06:00 Normal Saline 10 Ml Vial IJ 04/26/22 23:59 DIRECTED PRN Sterile Water 0 ml 04/26/22 06:00 Water,Injection,Sterile 10 Ml Vial IJ 04/26/22 23:59 DIRECTED PRN PFSH Active Problems Active Problems: Problem Status Onset Code Status post total left knee replacement 03/08/22 Z96.652 Actinic keratoses 09/07/17 L57.0 Hypercholesterolemia 09/06/16 E78.00 Male erectile disorder N52.9 Osteopenia 05/11/03 M85.80 Tubular adenoma 10/20/15 D36.9 Prostatitis N41.9 Chronic left shoulder pain 08/11/15 M25.512, G89.29 Arthritis M19.90 Polyneuropathy G62.9 BPH (benign prostatic hyperplasia) N40.0 Edema R60.9 Primary osteoarthritis of right knee M17.11 Leg edema, right R60.0 Cellulitis L03.90 Consolidation of right upper lobe of lung J18.1 Pneumonia J18.9 DVT (deep venous thrombosis) I82.409 Medical History Medical History Abnormal endocrine laboratory test finding Abnormal laboratory test elevated MCV Acute bilateral low back pain 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), electrolyte disorder associated w/alcohol Arthritis Chronic left shoulder pain 08/11/15 DVT (deep venous thrombosis) (R) Essential hypertension Essential hypertension (07/31/13) Folate deficiency Hx of fracture of left hip 3 screws Hypokalemia 11/15/16 Kidney stone Male erectile disorder Osteopenia Prostatitis in the past Shoulder pain 08/01/13 replacement 11/2014 Medical History Comments:: hard of hearing Surgical History Surgical History ankle repair R ANKLE RECONSTRUCTION Closed fracture of unspecified part of neck of femur 05/11/03 left femoral neck fracture [facility] [place] Colonoscopy - MAC (~2005) neg Rotator Cuff Repair RIGHT SHOULDER-VIKAS CAP LEFT SHOULDER-VIKAS CAP 11/26 Status post hernia repair right inguinal hernia ~20s Tobacco Smoking/Tobacco Use Status: Never Passive smoking exposure: No Second hand exposure: No Alcohol Alcohol Intake: former Substance Use Substance use: Never Substance use type: does not use Vital Signs and Lab Results Vital Signs Most Recent Vital Signs in EMR: Temp Pulse Resp BP Pulse Ox 36.6 C 66 15 138/87 98 04/26/22 07:34 04/26/22 07:34 04/26/22 07:34 04/26/22 07:34 04/26/22 07:34 Lab Results Blood Type / Crossmatch: No Data to Display Complete Blood Count: White Blood Count 7.42 10^3/uL (4.4-10.8) 04/18/22 09:40 Red Blood Count 4.24 10^6/uL (4.36-5.78) L 04/18/22 09:40 Hemoglobin 11.9 g/dL (13.5-17.5) L 04/18/22 09:40 Hematocrit 36.7 % (40.0-50.0) L 04/18/22 09:40 Platelet Count 263 10^3/uL (130-400) 04/18/22 09:40 Complete Metabolic Panel: Sodium 141 mmol/L (136-145) 04/18/22 09:40 Potassium 3.6 mmol/L (3.5-5.1) 04/18/22 09:40 Chloride 103 mmol/L (98-107) 04/18/22 09:40 Carbon Dioxide 30.5 mmol/L (21.0-32.0) 04/18/22 09:40 BUN 26 mg/dL (7-18) H 04/18/22 09:40 Creatinine 1.4 mg/dL (0.70-1.30) H 04/18/22 09:40 Est GFR (CKD-EPI 2020) 52.41 (mL/min/1.73m2) 04/18/22 09:40 Calcium 9.1 mg/dL (8.5-10.1) 04/18/22 09:40 Glucose 107 mg/dL (74-106) H 04/18/22 09:40 Liver Function Panel: No Data to Display Coagulation Panel: No Data to Display Cardiac Panel: No Data to Display Arterial Blood Gas: No Data to Display Venous Blood Gas: No Data to Display Pancreas Panel: No Data to Display Thyroid Panel: No Data to Display Infectious Disease: No Data to Display Blood Cultures: No Data to Display Toxicology Panel: No Data to Display Imaging and Studies Imaging and Studies Study information below may be from another EMR and interpreted by another provider. Please see original notes in EMR for more complete details. EKG Summary: 08/31: Sinus rhythm...normal P axis, V-rate 60- 99 Atrial premature complexes...SV complexes w/ short R-R intvls Low voltage, precordial leads...precordial leads <1.0mV Echocardiogram Summary: 05/02: Normal left ventricular wall thickness and chamber size. Estimated ejection fraction is 60 to 65%. Wall motion is normal Normal right ventricular size and systolic function Both atria are normal in size There is no structural or hemodynamically significant valvular disease Mildly dilated ascending aorta measuring 3.91 cm Estimated right ventricular systolic pressure is 32 mmHg Anesthesia Assessment and Plan Anesthesia History Personal History: No History of Anesthesia Complications Family History: No Family History of Anesthesia Complications Exercise Tolerance Exercise Tolerance: Metabolic Equivalents>4 Cardiac & Pulmonary Exam Cardiac Exam: Normal S1/S2 Heart Sounds Pulmonary Exam: Clear Bilateral Breath Sounds Implantable Cardiac Device Does patient have a Pacemaker or an ICD?: No Airway Exam Known Difficult Airway: No Mallampati Class: 2 Mouth Opening: Normal (> 3cm) Thyromental Distance: Greater than 3 cm Neck Range of Motion: Full ROM Neck Circumference: Normal Teeth Condition: Removable Dentures/Plates Upper and Removable Dentures/Plates Lower ASA Classification ASA Score: ASA 3 Emergency Case?: No NPO Status NPO Status: NPO Clears >2 hours, Solids >8 hours Anesthesia Plan Resuscitation Status: Full Code Anesthesia Technique: Spinal Anesthesia Airway Planned: Natural Airway Monitors Used: Standard Monitors Preoperative Comments:: 76 yo male for TKA. Sig PMHx: HTN (losartan, metoprolol, chlorthalidone), polynueropathy, DVT/PE (apixaban last dose monday), BPH, never smoker, former EtOH. Previous Anes: - bronch with maravilla 2 grade 1. - TKA, spinal 2 mL 3% chloroprocaine, low dose prop. Happy with his previous TKA, plan for same (spinal with adductor canal block).
--- NOTE | 2022-04-26 07:28 | PDOC.DSDIS_ITS ---
Date of service: 04/26/22 Time of Service: 07:29 Discharge Plan Disposition Patient Disposition: HOME Condition: Good Discharge Details Reason For Visit: R TKR Attending Provider: Santosh Lugo Primary Care Provider: Adrienne Garcia Home Meds and New Rx's Prescriptions: New acetaminophen 500 mg tablet 1,000 mg PO TID Qty: 90 3RF celecoxib 200 mg capsule 200 mg PO BID Qty: 60 3RF pantoprazole 40 mg tablet,delayed release (DR/EC) 40 mg PO DAILY Qty: 30 0RF gabapentin 300 mg capsule 300 mg PO QHS Qty: 14 0RF oxycodone 5 mg tablet 5 mg PO Q4H MDD 6 tabs PRN (Reason: pain) Qty: 20 0RF Continued aspirin [Aspir-81] 81 MG tablet,delayed release (DR/EC) 81 mg PO DAILY calcium carbonate [Caltrate 600] 600 MG tablet 600 mg PO DAILY Rx Instructions: REPORTS TAKING 1.5GM TAB DAILY. potassium chloride [Klor-Con M20] 20 mEq tablet,ER particles/crystals See Rx Instructions .ROUTE .COMPLEX Qty: 90 3RF Dose Instruction: TAKE 1 TABLET DAILY Rx Instructions: TAKE 1 TABLET DAILY atorvastatin 20 mg tablet 20 mg PO DAILY Qty: 90 4RF albuterol sulfate 90 mcg/actuation HFA aerosol inhaler 2 puff inhalation Q8H Qty: 108 4RF losartan [Cozaar] 100 mg tablet 100 mg PO DAILY Qty: 90 4RF folic acid 1 mg tablet 1 mg PO DAILY Qty: 100 12RF chlorthalidone 25 mg tablet 25 mg PO DAILY Qty: 90 4RF Eliquis 5 mg tablet 5 mg PO BID Qty: 30 0RF metoprolol succinate 100 mg tablet extended release 24 hr 100 mg PO DAILY Qty: 90 3RF Rx Instructions: in place of atenolol cholecalciferol (vitamin D3) [Vitamin D3] 25 mcg (1,000 unit) Tablet 25 mcg PO DAILY Discontinued acetaminophen 500 mg tablet 1,000 mg PO TID Qty: 90 3RF Discharge Instructions Additional Instructions: Total Knee Discharge Instructions Activity: The most important activity is to walk and to work on gentle motion (both flexion and extension). You should try to take short walks a few times a day. It is important that when resting you work on keeping the knee straight. Avoid putting a pillow behind the knee as this will encourage flexion. Work on range of motion exercises as provided by Physical Therapy. - Start outpatient physical therapy within 2 weeks. - You should wear the DENISE hose on both legs for 2 weeks. You may remove these at night. You may also use any compression sock in place of the DENISE hose. - Utilize [employer] to review exercises, see videos on exercises and obtain basic information pertaining to your surgery and your recovery. Dressing: Remove the Sukumar wrap by 2 days after your surgery and put on the DENISE stocking given to you from the hospital. Keep the surgical dressing (underneath the SUKUMAR wrap) in place for at least one week. After the first week it may be removed and replaced with light gauze and tape or nothing. The wound and dressing may get wet after 3 days but avoid soaking the dressing or otherwise it will need to be changed. Many people prefer covering the dressing with cling wrap (saran wrap) to minimize it from getting soaked. If it gets wet, just pat dry. If it starts to peel off then it will need to be changed. Medications: - You should take Tylenol and anti-inflammatory Celebrex as your primary pain control medications. If the Celebrex is too expensive or not covered, please call the office for another alternative (Advil/Ibuprofen or Naproxen/Aleve) - You have been prescribed a stronger pain medication Oxycodone for breakthrough pain, take as needed as prescribed. - You have also been prescribed a stomach acid reduction agent Pantoprozole to help reduce stomach acid and reflux. - You have been prescribed Gabapentin to take at night for restlessness and nerve pain. - You will be continuing your apixaban and aspirin daily for DVT prevention unless instructed otherwise. - If you have constipation you should take Colace or Miralax (both [id number]). It takes most people 3-4 days to have a bowel movement. Follow-up: 2 weeks If you have any acute concerns or questions, please do not hesitate to contact the office at [phone]. You may contact Dr. Lugo with any questions after hours through the hospital at [phone] or on his cell phone at [phone]. Referrals: Santosh Lugo MD [ [facility] STAFF PHYSICIAN] - Equipment/Supplies: Walker Activity:: Activity as Tolerated Shower/Bathe:: 72 hours Diet:: As Tolerated Discharge Orders Discharge Orders: Discharge Order (Routine); Ordered 04/26/22 Ordered By: Santosh Lugo
[2022-04-26] MEDS: Gabapentin 300 MG CAP PO (07:52)
[2022-04-26] MEDS: Celecoxib 200 MG CAP 400 MG PO (07:52)
[2022-04-26] MEDS: Acetaminophen 500 MG TAB 1000 MG PO (07:53)
[2022-04-26] MEDS: Lactated Ringers 1,000 ML 80 ML IV (08:15)
--- NOTE | 2022-04-26 08:38 | ANES.NERVE_ITS ---
Nerve Block Single Injection Procedure Date and Time Date Performed: 04/26/22 Procedure Start: 08:31 Location Where Procedure Performed Procedure Location: Day Surgery Unit Reason Performed: Postoperative Analgesia Requesting Provider: Santosh Lugo Timeout Performed Timeout Performed: Yes Monitoring Used ECG, Blood Pressure and SpO2 Sterility Sterility: Hand Hygiene, Surgical Cap, Surgical Mask, Sterile Gloves and Chlorhexidine Sedation Given During Procedure Sedation Given (Indicate Dose Given): No Sedation given Patient Mental Status Patient Mental Status: Awake Nerve Block 1st Nerve Block: Laterality: Right Block Type: Adductor Canal Needle / Catheter Used: 120mm SonoPlex II Local Anesthetic Bolus (Indicate Dose Given): Lidocaine used for local infiltration of skin, Injected in 3-5ml increments after negative blood aspiration and Bupivacaine 0.375% Dose:: 10 mL Additives (Indicate Dose Given): None Ultrasound: Sterile probe cover and gel used Ultrasound Image Saved?: Yes Nerve Stimulator: Supplement to Ultrasound use and No twitch or ishaan thesia noted < 0.5 mA Paresthesia: None Procedure Tolerated: No Complications Procedure Outcome: Successful Performed By: Jim Andrade
[2022-04-26] MEDS: ceFAZolin 3,000 MG in Normal Saline 100 ML 200 MG IVPB (09:13)
--- NOTE | 2022-04-26 11:40 | W.ANESPOSTOP ---
Postoperative Evaluation Date, Time and Location Date Performed: 04/26/22 Time Performed: 11:40 Patient Location: PACU Vital Signs Most Recent Imported Vital Signs: Most Recent Vital Signs Temp Pulse Resp BP Pulse Ox 36.5 C 58 L 17 97/52 L 98 04/26/22 11:30 04/26/22 11:30 04/26/22 11:30 04/26/22 11:30 04/26/22 11:30 Pain Score Most Recent Pain Score: Most Recent Pain Score Pain Level 0 04/26/22 11:30 Assessment Mental Status: Awake (Alert & Oriented to Patient Baseline) Airway and Respiratory Function: Patent airway with normal (patient baseline) respiratory exam Cardiovascular Function: Hemodynamically Stable Hydration Status: Adequately Hydrated Nausea & Vomiting: No Nausea or Vomiting Pain: Pain is tolerable per patient Peripheral Nerve Block: Regional nerve block not resolved at time of post operative discharge
--- NOTE | 2022-04-26 13:35 | IN_ITS ---
Date of service: 04/26/22 Time of Service: 13:35 PT Notes Visit Reasons: R TKR Physical Therapy Day Surgery Initial Evaluation Date: 04/26/2022 Referring Doctor: NINA Fink PT Orders: PT CONSULT: S/P ortho surgery Precautions: WBAT on the R LE with AD. Patient Profile/Admitting Diagnosis: Patient is a 76-year-old male patient with primary unilateral osteoarthritis of the R knee and is status post right total knee arthroplasty on postoperative day 0. Patient is S/P left total knee arthroplasty on 03/08/2022. PMHX: All Active Problems?(Updated 03/21/22 @ 09:07 by Samara Fernando) Status post total left knee replacement (Acute 03/08/22) Actinic keratoses (Chronic 09/07/17) Hypercholesterolemia (Chronic 09/06/16) Male erectile disorder (Chronic) Osteopenia (Chronic 05/11/03) -1.1/-0.3/0.1 Tubular adenoma (Chronic 10/20/15) Prostatitis (Acute) Chronic left shoulder pain (Acute 08/11/15) Arthritis (Acute) Polyneuropathy (Acute) BPH (benign prostatic hyperplasia) (Chronic) Edema (Acute) Primary osteoarthritis of right knee (Chronic) Leg edema, right (Acute) Cellulitis (Acute) Consolidation of right upper lobe of lung (Acute) Pneumonia (Acute) DVT (deep venous thrombosis) (Chronic) Medical History?(Updated 03/21/22 @ 09:07 by Samara Fernando) Abnormal endocrine laboratory test finding Abnormal laboratory test elevated MCVAcute bilateral low back pain 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), electrolyte disorder associated w/alcohol Arthritis Chronic left shoulder pain 08/11/15 DVT (deep venous thrombosis) (R)Essential hypertension Essential hypertension (07/31/13) Folate deficiency Hx of fracture of left hip 3 screws Hypokalemia 11/15/16 Kidney stone Male erectile disorder Osteopenia Prostatitis in the past Shoulder pain 08/01/13 replacement 11/2014 Surgical History?(Updated 03/21/22 @ 09:07 by Samara Fernando) ankle repair R ANKLE RECONSTRUCTION Closed fracture of unspecified part of neck of femur 05/11/03 left femoral neck fracture [facility] [place] - MAC (~2005) neg Rotator Cuff Repair RIGHT SHOULDER-VIKAS CAP LEFT SHOULDER-VIKAS CAP 11/26 Status post hernia repair right inguinal hernia ~20s Social History/Home Situation: Patient lives with Christine in a private home with three steps to enter with no rails but is able to hold onto door frame for support. Equipment Owned/DME: [employer] Subjective: Already dressed up and ready to go home when PT came in. Reports 2/10 pain in the R knee. Denies headache, chest pain, and dizziness. Verbalizes that he will make sure to get the link to the [employer] don for exercises that he can do at home. Objective: General Observation: Seated on chair.? PREM wraps to R LE. Cryocuff to R knee. Mental Status: A and O x 4 Pain: 2/10 in the L knee ROM: Right Lower Extremity: Hip flexion WFL. Hip abduction WFL. Knee flexion 0 degrees to 90 degrees. Knee extension 90 degrees flexed position to 0 degrees.? Ankle dorsiflexion WFL. Ankle plantarflexion WFL.Hip flexion WFL. Hip abduction WFL. Knee flexion WFL. Ankle dorsiflexion WFL. Ankle plantarflexion WFL. Left Lower Extremity:? Hip flexion WFL. Hip abduction WFL. Knee flexion WFL. Ankle dorsiflexion WFL. Ankle plantarflexion WFL. Strength: Right Lower Extremity: Hip flexors 4/5. Hip abductors 4/5. Knee flexors 3-/5. Knee extensors 3-/5. Ankle dorsiflexors 4/5. Ankle plantarflexors 5/5. Left Lower Extremity:Hip flexors 5/5. Hip abductors 5/5. Knee flexors 5/5. Knee extensors 5/5. Ankle dorsiflexors 5/5. Ankle plantarflexors 5/5. Sensation: Intact as to pain and light touch in B LE Bed Mobility/Transfers: Supine to sit supervision Sit to stand supervision Stand to sit supervision Bed to chair supervision THERA EX: SLR on R x 10 LAQ x 10 Seated hip flexion x 10 Ankle DF/PF x 10 Quads sets x 10 Gluteal sets x 10 Gait: 150 feet using FWW with stand by assist, step through heel-toe gait pattern 2/10 pain in the R knee. Stairs: Up and down 6 x 4-inch steps and 4 x 6-inch steps while holding onto B rails with [id number]-[id number] pattern with no increase in pain requiring stand by assist. Balance: Static Sitting: Normal Dynamic Sitting: Normal Static Standing: Fair Dynamic Standing: Fair Special Tests: Mobility Limitations Standardized Measure [facility] 6 clicks Basic Mobility Inpatient Short Form: Raw Score: 24? CMS Score: 0 % deficit Informed Consent/Education:? Patient instructed in purpose of PT consult. ? Education and training on initial set of exercises above that can be done at home have been completed with patient with reference to the orthopedic packet given tot he patient. Assessment: Patient requires the use of a appropriately fitted front-wheeled walker to maximize independence and reduce fall risk at home.? Patient presents with clini logan signs and symptoms consistent with current/admitting diagnoses that have resulted to mobility limitations as demonstrated by the following impairment level findings: 1.? Decreased strength to right knee major muscle groups 2.? Impaired standing balance 3.? Limitation of joint range of motion in rightknee Impairments are contributing to the following functional limitations: 1.? Inability to safely ambulate without assistive device 2.? Increase completion time for mobility ADL performance 3.? Increased fall risk Patient is assessed as a 33236 moderate complexity based on the following: History: 76-year-old male with impairment level findings, functional limitations, and past medical history as indicated above Examination: Demonstrable impairment in strength, balance, and mobility level with underlying impairments and functional limitations as documented above Presentation: Evolving [employer]in moderate complexity Goals: N/A.? PT evaluation and 1-2 treatment sessions only for functional mobility training using recommended AD and for HEP instruction. Plan of Care/Treatment Plan: N/A.? PT evaluation and 1-2 treatment session only for functional mobility training using recommended AD and for HEP instruction. DISCHARGE RECOMMENDATIONS:? [] ? Home with no services [] [] ? Home with services [specify] [X] ? Home with outpatient PT.? Home when medically cleared by orthopedic surgeon.? Consider outpatient PT services in order to maximize functional mobility outcomes and facilitate independent community ambulation without an ass istive device. [] ? SNF for continued rehabilitation [] [] ? [facility] [] [] ? SNF versus LTC based on ability to participate and progress [] TREATMENT CODE/TIME: [id number] x 22 minutes beginning at 13:35 PM. Thank you for the opportunity to participate in the care of this patient. Valeria Martin PT, DPT, CLT [facility] [place], [place]
--- NOTE | 2022-04-26 18:45 | W.PM.OP ---
Date of service: 04/26/22 Time of Service: 11:00 Operative Note Operative Note DATE OF PROCEDURE: 04/26/22 PRE-OP DIAGNOSIS: Right Knee Osteoarthritis POST-OP DIAGNOSIS: same PROCEDURE: Right Total Knee Replacement SURGEON: Santosh Lugo [facility] INTERN: Winter Villatoro ANESTHESIA TYPE: Spinal Refer to Anesthesia Record ESTIMATED BLOOD LOSS: 200 PATHOLOGY: none sent COMPLICATIONS: None Patient was transported to: PACU Patient's condition: stable Implants: 1. Depuy Attune Cruciate Retaining Femoral Component, Size 8 2. Depuy Attune Rotating Platform Tibial Component, Size 8 3. Depuy Attune 8x7 CR,RP Poly 4. Depuy Attune Patellar Component, Size 41 Indications: I have seen Louis in clinic for symptoms of knee arthritis, confirmed with radiographic findings. Louis has exhausted nonoperative methods and was having significant limitations in daily function and desired better function and less pain. I discussed the technical details of a knee replacement. I explained the risks of the procedure to include, but not limited to, bleeding, infection, pain, stiffness, fracture, damage to nerves and vessels, damage to muscles and tendons, loosening, need for repeat procedure, blood clot and cardiopulmonary demise. Despite these risks, he elected to proceed. Findings: There was significant signs of arthritis throughout the knee invovling all 3 compartments. Procedure Description: Louis was greeted in the preoperative holding area where the correct side was identified and marked. The consent was reviewed with the patient and signed. The history and physical was updated. All questions were answered. Preoperative mediacations were administered: Acetaminophen 1000mg, Celebrex 400mg, and Gabapentin 300mg. An adductor canal block was then administered by the anesthesia team in the PACU. He was taken back to the operating room. A spinal anesthestic was then administered. The patient was placed into the supine position on the operating room table. A nonsterile tourniquet was placed high onto the leg but only used for cementing. Posts were placed for positioning during the procedure. All bony prominences were well padded. Prophylactic antibiotics in the form of Cefazolin were administered. 1g of Tranxemic Acid was given intravenously within 30 minutes of incision. The right leg was then prepped with Chloraprep and draped in a standard fashion with impervious stockinette and extremity drape. A second prep with Chloraprep was performed prior to placing Ioband. A timeout to confirm correct identity, side and site, procedure, allergies, anesthesia, and medical concerns was performed. With the knee in some flexion, a midline incision was made overlying the knee. Full thickness skin flaps were raised once the extensor mechanism was encountered. These were raised medially and laterally. Any bleeding was controlled with electrocautery. Once the extensor mechanism was fully exposed, a medial parapatellar arthrotomy was performed in a flexed position. All bleeding from the arthrotomy and the geniculate arteries was coagulated. A medial subperiosteal peel was performed with electrocautery to the midcoronal plane. The fat pad was removed while keeping the patellar tendon protected. The anterior distal femur synovium was removed for later visualization. The ACL and PCL were resected and the anterior horn of the lateral meniscus was transected. The knee was then flexed with the patella everted. Large osteophytes from the tibia were removed. Large osteophytes from the femur were removed. Using a step drill, and based on preoperative templating, the femoral canal was entered. This was done with a step drill without any difficulty. The intramedullary distal femoral cut guide was inserted, set to a 6 degree valgus cut and 9mm cut thickness. The distal femoral cut guide was then held in position and pinned. With the soft tissues protected, the distal cut was performed. This was passed over a few times to ensure a planar cut. I then turned attention to the tibia. The extramedullary guide was placed onto the leg. The distal aspect was slid medial to adjust for position of center of ankle and stay in line with shaft of the tibia. Approximately 3-5 degrees of posterior slope was kept in the proximal cutting guide. The center of the guide was aligned with the PCL. The stylus was used to assess cut thickness. The tibial invovlement was equal in both compartments and based on the preoperative template, a balanced cut was expected, taking 5mm off medially and 7mm laterally. This was then held in position and pinned into place with 2 additional pins and a cross pin for stability. The medial and lateral collateral ligaments were protected and the cut was performed. With this completed, it was assessed and noted to be of appropriate dimensions. The guide was removed. A spacer block was inserted and the knee was brought into extension. The 7mm spacer block provided full extension, without hyperextension and with stability of both the medial and lateral collateral ligaments was assessed. The pins from the femur and the tibia were then removed. The distal femur was then sized. The anterior stylus was placed onto the lateral ridge of the anterior femur. This indicated a size 8 femur. The external rotation of the guide was adjusted to 3 degrees to match the epicondylar axis, perpendicular to Gustavo?s line. The 4-in-1 cutting guide was the placed. The posterior medial femur cut was evaluated and appeared of good thickness. The spacer block was inserted underneath the cutting guide and stability was confirmed in 90 degrees of flexion. An savannah wing was used to confirm appropriate position of the anterior cut to avoid notching. This cutting guide was ensured to be flush on the cut surface and then pinned into place with headed pins. While protecting the soft tissues, quad tendon, and collateral ligaments, the anterior and posterior cuts were performed with a saw. The central two pins were removed and the posterior and anterior chamfers were cut next. The notch-cutting guide was placed. This was pinned to lateralize the femoral component as much as possible while keeping it flush on the cut surface. This was then pinned into position. A reciprocating saw was used to make the small notch cut. A trial CR femoral component was then inserted, impacted down to the cut surfaces, and the lug holes were drilled. A provisional trial tibial component was placed and the knee was brought through range of motion. There was noted to be excellent extension and flexion. There was no significant instability. The patella was tracking without thumbs. The tibial cut surface was fully exposed. The medial and lateral menisci were removed. The tibia was then sized as a 8. The tibia had been previously marked during trialing to correspond to the center of the tibial component to help with rotation. The trial was aligned to this winter, approximately rotated to the medial 1/3rd of the tibial tubercle. The trial was pinned into place. The tibia was prepared with a reamer and a keel punch. The knee was then brought into extension and the patella was measured as 28mm. Using the patellar clamp and cut guide, this was resected to a flat surface with at least 13mm of thickness remaining. The size 41 patella fit the best. This was oriented and then clamped into position. The lugs were drilled. The trial components were removed. The final components, except for the polyethylene were opened on the back table. The periosteal and capsular tissues, especially posteriorly, around the knee were then systematically injected with a periarticular cocktail consisting of 246mg of Ropivacaine, 0.5mg of Epinephrine, and 30mg of Ketorolac, diluted to 100cc.. The tourniquet was then inflated to 275mmHg. The knee was thoroughly irrigated with a pulse lavage and dried. On the back table, with the implants opened, the cement was mixed. 2 batches of medium viscosity cement were prepared with vacuum assistance. After the cement was ready it was placed on to the back side of the tibial component. A small amount was placed onto the posterior flange of the femur. Cement was manual pressurized and impregnated into the cut surface of the tibia. The tibial component was then inserted into the cut surface and impacted into position. Excess cement was removed and the component was reimpacted. Again, excess cement was removed and our attention was then turned to the femur. The femoral cut surface was once again dried and cement was manually impacted into the cut surface. The femoral component was lined with the lug holes and impacted. Excess cement was removed. It was ensured to be down against the cut surface. The trial polyethylene was then inserted and the leg was brought out into full extension for the duration of the cement curing process, approximately 18min. Cement was lastly manually impacted into the cut surface of the patella and the patellar button was clamped into position and held. During this process attention was turned to the gutters of the knee and for all interfaces for any excess cement. While the cement was hardening, the knee was irrigated with Irrisept chlorhexadine solution. It was allowed to sit in the knee for 3 minutes and then it was thoroughly irrigated with saline. After the cement had finally cured, approximately 18min, the clamp was removed from the patella and the knee was taken through range of motion. A size 7mm polyethylene component provided the best range of motion and stability with less than 2mm gapping with medial and lateral stress and full extension without significant hyperextension. The patella was tracking with a no-thumbs technique. The trial poly was removed and once again the knee was checked for any loose, excess, or errant cement. The poly component was then inserted into position after cleaning and drying the tibial tray. The capsule was then reapproximated with a No. 1 Vicryl at multiple locations. The capsule was finally closed with a No. 2 Stratafix, barbed suture. The tourniquet was then released and the arthrotomy appeared watertight without significant bleeding. The second dosing of 1g TXA was started. Deep tissues were then reapproximated with 0 Vicryl and 2-0 Vicryl. The skin was closed with a running 3-0 Monocryl in a subcuticular fashion. This was reinforced with skin glue. A Mepilex silver dressing was applied along with a [id number] PREM wrap. A CryoCuff was applied. Louis was transferred to the hospital bed without difficulty an suffering no apparent complication. Louis has a good prognosis. Physical therapy will start today and without restrictions, weight-bearing as tolerated. Aspirin 81mg BID will be used for DVT prophylaxis.
== END 2022-04-26 14:05 | disposition home or self-care (01) ==
PROVIDERS: PCP Family Medicine; Visit Provider Student in an Organized Health Care Education/Training Program
PROC: (CPT 27447; principal; 2022-04-26 09:15)
DX: M17.11 Unilateral primary osteoarthritis, right knee (principal); I10 Essential (primary) hypertension
CPT/HCPCS: 27447; C1776; 97162; J0690; J1100; J2370; J2405; J2704

== ENCOUNTER 2022-05-09 11:55 | Outpatient (CLI) | payer MEDICARE, SELFPAY ==
--- NOTE | 2022-05-09 09:45 | DI.RAD_ITS ---
Exam(s) XR KNEE RT 1V XR STANDING ALIGNMENT EXAM: XR STANDING ALIGNMENT CLINICAL HISTORY: 1ST POST OP R TKA. TECHNIQUE: 2D digital imaging was performed. Standing AP views were performed from the pelvis throu gh the ankles. Lateral view of the right knee COMPARISON: CR XR KNEE RT 1V from 05/09/2022 FINDINGS: BONES: No acute fracture is present. No bony destructive lesion is seen. Leg length discrepancy: The right femoral head projects 10 millimeters superior to the left. JOINTS: Knees: Bilateral total knee prostheses are unremarkable. No abnormal surrounding lucencies The ankle joints spaces are well maintained. There are chronic appearing bony densities near both m alleoli. The hip joints show mild degenerative changes. There are 3 screws in the proximal left femur. SOFT TISSUE: There is diffuse edema in the right lower leg greater distally around the ankle. There is also left lower leg edema. IMPRESSION: Bilateral knee prostheses. 10 millimeter n leg length discrepancy. DATA REPOSITORY: RADIATION DOSE DELIVERED:
== END 2022-05-09 11:56 | disposition home or self-care (01) ==
LOC: DIORS 11:56
PROVIDERS: PCP Family Medicine; Referring Provider Family Medicine; Visit Provider Physician Assistant
DX: Z96.651 Presence of right artificial knee joint (principal); Z47.1 Aftercare following joint replacement surgery
CPT/HCPCS: 73560; 77073

== ENCOUNTER → 2022-06-08 10:00 | Outpatient (BNVA) | payer MEDICARE, SELFPAY | PROVIDERS: PCP Family Medicine; Referring Provider Family Medicine; Visit Provider Physician Assistant | DX: Z47.1 Aftercare following joint replacement surgery (principal); Z96.651 Presence of right artificial knee joint ==

== ENCOUNTER → 2022-07-22 10:30 | Outpatient (BNVA) | payer MEDICARE, SELFPAY | PROVIDERS: PCP Family Medicine; Referring Provider Family Medicine; Visit Provider Student in an Organized Health Care Education/Training Program | DX: Z96.651 Presence of right artificial knee joint (principal); Z47.1 Aftercare following joint replacement surgery ==

== ENCOUNTER → 2022-10-14 09:51 | Outpatient (BNVA) | payer MEDICARE, SELFPAY | PROVIDERS: PCP Family Medicine; Referring Provider Family Medicine; Visit Provider Student in an Organized Health Care Education/Training Program | DX: Z47.1 Aftercare following joint replacement surgery (principal); M25.561 Pain in right knee; Z96.651 Presence of right artificial knee joint; Z96.652 Presence of left artificial knee joint | CPT/HCPCS: 99213 ==

== ENCOUNTER 2023-04-03 03:52 | Outpatient (CLI) | payer MEDICARE, SELFPAY ==
[2023-04-03 12:22] LABS: HCT 40.8 % (40.0-50.0); HGB 12.9 g/dL (13.5-17.5); MCH 26.3 pg (27.0-33.0); MCHC 31.6 % (32.0-36.0); MCV 83 fL (80-95); MPV 9.6 fL (8.0-11.0); Platelet Count 297 10^3/uL (130-400); RBC 4.91 10^6/uL (4.36-5.78); RDW 15.9 % (11.8-14.1); WBC 6.97 10^3/uL (4.4-10.8)
[2023-04-03 12:52] LABS: ALT 32 U/L (16-63); AST 24 U/L (15-37); Albumin 3.3 g/dL (3.4-5.0); Alkaline Phosphatase 79 U/L (46-116); Anion Gap 10.2 mmol/L (3-11); BUN 23 mg/dL (7-18); Bilirubin, Total 0.9 mg/dL (0.2-1.0); CO2 28.8 mmol/L (21.0-32.0); CREATININE 1.4 mg/dL (0.70-1.30); Calcium 9.2 mg/dL (8.5-10.1); Calculated LDL 65 mg/dL (<100); Chloride 103 mmol/L (98-107); Cholesterol 136 mg/dL (<200); Estimated GFR 52.09 (mL/min/1.73m2); Glucose 121 mg/dL (74-106); HDL Cholesterol 46 mg/dL (40-60); Potassium 3.2 mmol/L (3.5-5.1); Sodium 142 mmol/L (136-145); Total Protein 7.1 g/dL (6.4-8.2); Triglyceride 127 mg/dL (<150)
== END 2023-04-03 03:53 | disposition home or self-care (01) ==
PROVIDERS: PCP Family Medicine; Visit Provider Family Medicine
DX: E78.00 Pure hypercholesterolemia, unspecified (principal); I10 Essential (primary) hypertension
CPT/HCPCS: 36415; 80053; 80061; 85027; 99213

== ENCOUNTER 2023-04-03 10:30 | Outpatient (CLI) | payer MEDICARE, SELFPAY ==
--- NOTE | 2023-04-03 10:15 | DI.RAD_ITS ---
Exam(s) XR KNEE LT 2V AP,LAT EXAM: XR KNEE LT 2V AP,LAT CLINICAL HISTORY: 1ST POST OP S/P L TKA. TECHNIQUE: 2D digital imaging was performed. COMPARISON: CR XR KNEE LT 1V from 03/21/2022 CR XR KNEE RT 1V from 05/09/2022 CR XR KNEE RT 2V AP,LAT from 04/03/2023 FINDINGS: 3 views Components of the prosthesis remain stable. No fracture or loosening evident. No evidence of osteom yelitis. IMPRESSION: Stable satisfactory appearance. DATA REPOSITORY: RADIATION DOSE DELIVERED:
--- NOTE | 2023-04-03 10:15 | DI.RAD_ITS ---
Exam(s) XR KNEE RT 2V AP,LAT EXAM: XR KNEE RT 2V AP,LAT CLINICAL HISTORY: ANNUAL F/U S/P R TKA. TECHNIQUE: 2D digital imaging was performed. COMPARISON: CR XR KNEE RT 1V from 05/09/2022 FINDINGS: Two views. Stable appearance of the prosthesis components no fractures nor loosening evident. No evidence of osteomyelitis. IMPRESSION: Stable satisfactory appearance. DATA REPOSITORY: RADIATION DOSE DELIVERED:
--- NOTE | 2023-04-03 10:15 | DI.RAD_ITS ---
Exam(s) XR STANDING ALIGNMENT EXAM: XR STANDING ALIGNMENT CLINICAL HISTORY: 1ST POST OP S/P L TKA. TECHNIQUE: 2D digital imaging was performed. COMPARISON: CR XR STANDING ALIGNMENT from 05/09/2022 FINDINGS: 3 views Bilateral knee prostheses are again noted which appear stable. Three screws in the left hip femoral neck across healed femoral neck fracture site again of. There is no joint space narrowing in the lef t hip. Mild uniform joint space narrowing noted in the right hip, unchanged. No osseous lesions. S ubtle deformity in the distal half of the left tibia noted which is possibly related to prior healed fracture site. Accessory ossicles again noted subjacent to the medial malleolus both ankles. No ominous osseous les ions. IMPRESSION: As above but without significant radiographic change compared to 05/09/2022. DATA REPOSITORY: RADIATION DOSE DELIVERED:
== END 2023-04-03 10:31 | disposition home or self-care (01) ==
LOC: DIORS 10:31
PROVIDERS: PCP Family Medicine; Visit Provider Student in an Organized Health Care Education/Training Program
DX: Z96.651 Presence of right artificial knee joint (principal); Z96.652 Presence of left artificial knee joint; Z47.1 Aftercare following joint replacement surgery
CPT/HCPCS: 73560; 77073

== ENCOUNTER → 2023-04-18 00:27 | Outpatient (CLI) | payer MEDICARE, SELFPAY ==
--- NOTE | 2023-04-18 06:30 | DI.CT_ITS ---
Exam(s) CT CHEST WO EXAM: CT CHEST WO CLINICAL HISTORY: bronchiolectasis,pulmonary hypertension,j47.9,i27.20. TECHNIQUE: Multi planar reconstructions were performed. CONTRAST MATERIAL: None COMPARISON: CT CT CHEST WO from 02/15/2022 FINDINGS: CHEST: LUNGS: There is an unchanged area of scarring and atelectasis in the right upper lobe which exhibits no change from prior CT scan of 02/15/2022 and is associated with some mild bronchiectasis in this re gion. Lower down there is a pleural based 2 millimeter benign granuloma in the right lower lobe supe rior segment. In addition, there is a small noncalcified nodular infiltrate in the superior aspect o f the posterior basal segment of the right lower lobe (series 2/image 45) which is unchanged from 11/2021. This measures approximately 7 x 6 mm. In the opposite-left lung there are no significant focal findings. There are no pleural effusions on either side. There are no significant focal findings in the trachea and mainstem bronchi. MEDIASTINUM: There is no obvious hilar nor mediastinal adenopathy. Visualized thyroid unremarkable.No obvious axillary adenopathy CARDIAC: Heart size is normal. There is no pericardial effusion.Caliber of the thoracic aorta is wit hin normal limits. VISUALIZED UPPER ABDOMEN:Partially included cyst in the left kidney again noted. No adrenal masses e vident. OSSEOUS: No significant osseous lesions.No fractures.. IMPRESSION: 1. Right upper lobe findings as described above, unchanged from prior CT scan of 02/15/2022. 2. There is also a small nodular infiltrate in the right lower lobe measuring approximately 7 x 6 mm, also unchanged. There are no focal findings in the left lung. There are no pleural effusions. The re are no pleural effusions 3. RADIATION DOSE DELIVERED: Total DLP DATA REPOSITORY: All CT scans at this facility are submitted to the National Radiology Data Registry (NRDR) Dose Index Registry (DIR) with the [employer] ([employer]). RADIATION OPTIMIZATION: All CT scans at this facility use at least one of these dose optimization te chniques: automated exposure control; mA and/or kV adjustment per patient size (includes targeted exa ms where dose is matched to clinical indication); or iterative reconstruction.
--- NOTE | 2023-04-18 06:30 | DI.US_ITS ---
Exam(s) US LOWER EXTREMITY VENOUS RT EXAM: US LOWER EXTREMITY VENOUS RT CLINICAL HISTORY: r leg DVT,s/p lt total knee,I82.401 TECHNIQUE: Grayscale, color, and doppler imaging of the deep venous system of the lower extremity w as performed. COMPARISON: US POCUS EXAM from 04/26/2022 FINDINGS: This is a positive-abnormal study. There is intraluminal thrombus within the distal femoral vein in the lower right thigh and this exten ds down into the popliteal vein for total clot distance of 12.5 cm length. There does not appear to be intraluminal thrombus within the posterior tibial vein in the calf. The mid and upper femoral vein in the thigh as well as the common femoral vein in the groin are paten t. There is no evidence of intraluminal thrombus in the greater saphenous vein. IMPRESSION: 1. Positive study for DVT in the lower right thigh involving the distal 3rd of the right femoral vei n and upper popliteal vein. Clot length is estimated approximately 12-13 cm length. Finding appears more prominent than on prior study of 2021. Wet read performed DATA REPOSITORY:
== END ==
PROVIDERS: PCP Family Medicine; Visit Provider Family Medicine
DX: I27.20 Pulmonary hypertension, unspecified (principal); J47.9 Bronchiectasis, uncomplicated; I82.411 Acute embolism and thrombosis of right femoral vein; Z96.652 Presence of left artificial knee joint; R91.8 Other nonspecific abnormal finding of lung field
CPT/HCPCS: 71250; 93971

== ENCOUNTER → 2023-04-25 13:14 | Outpatient (BNVA) | payer MEDICARE, SELFPAY | PROVIDERS: PCP Family Medicine; Referring Provider Family Medicine; Visit Provider Surgery | DX: Z12.11 Encounter for screening for malignant neoplasm of colon (principal); Z86.010 Personal history of colon polyps ==

== ENCOUNTER → 2023-05-05 00:17 | Outpatient (CLI) | payer MEDICARE, SELFPAY ==
--- NOTE | 2023-05-05 17:04 | DI.US_ITS ---
APPROVED REPORT EXAM: Comprehensive 2D, Doppler, and color-flow Echocardiogram Patient Location: Out-Patient [employer] Professor: Sabina Rios RDCS (AE) Indications: H/X Pulmonary HTN, pre operative exam Other Information Study Quality: Adequate Conclusion Normal left ventricular wall thickness, chamber size and systolic function. Ejection fraction is 57% , normal wall motion Normal right ventricular size and systolic function Both atria are normal in size Aortic valve is trileaflet and mildly sclerotic with trace regurgitation Normal mitral valve with moderate regurgitation Estimated right ventricular systolic pressure is 44 mmHg Wall motion Left Ventricle The left ventricle is normal size. The left ventricular systolic function is normal. The left ventric ular ejection fraction is within the normal range. There is normal left ventricular wall thickness. T here is normal LV segmental wall motion. There is no ventricular septal defect visualized. LVEF is 57 %. Right Ventricle The right ventricle is normal size. The right ventricular systolic function is normal. Atria The left atrium size is normal. The right atrium size is normal. The interatrial septum is intact wit h no evidence for an atrial septal defect. Aortic Valve The Aortic valve is mildly sclerotic. Aortic valve is trileaflet. There is no aortic valvular stenosi s. Trace aortic regurgitation. Mitral Valve The mitral valve is normal in structure. No evidence of mitral valve stenosis. Moderate mitral regu rgitation. Tricuspid Valve The tricuspid valve is normal in structure. There is no tricuspid valve stenosis. Trace to mild tricu spid regurgitation. The RVSP is 44.5 mmHg. Pulmonic Valve The pulmonary valve is normal in structure. There is no pulmonic valvular stenosis. Trace pulmonic re gurgitation. Great Vessels The aortic root is normal in size. Ascending aorta is normal in caliber. Aortic arch is not well visu alized. IVC is normal in size and collapses >50% with inspiration. Pericardium There is no pericardial effusion. 2D Dimensions IVSD d PLAX 1.07 cm M: 0.6-1.2 Ao Root d 3.95 cm M: 3.1 - 3.7 LVPW d PLAX 1.14 cm M: 0.6 - 1.2 Ao Asc Diam d 3.43 cm M: 2.6 - 3.4 LVID d PLAX 5.16 cm M: 4.2 - 5.8 LVDs 3.69 cm M: 2.5 - 4.0 LV EF Teichholz 54.6 % FS 28.46 % LV EDV (Teich) 127.1 mL LV ESV (Teich) 57.8 mL M-Mode TAPSE 3.52 cm (M/F) >1.7 Auto EF LV EDV A4C 161.4 mL LV EDV A2C 193.7 mL LV EDV BP 173.9 mL LV ESV A4C 68.4 mL LV ESV A2C 89.2 mL LV ESV BP 76.6 mL LVEF(%) A4C 57.6 % LVEF(%) A2C 54.0 % LVEF(%) BP 56.0 % LV SV A4C 93.0 ml LV SV A2C 104.6 ml LV SV BP 97.3 ml LV CO A4C 5.9 L/min LV CO A2C 6.5 L/min LV CO BP 6.2 L/min HR A4C 63.36 BPM HR A2C 62.48 BPM LV EDV Index (BP) LV Strain Long Pk Overal Avg (s) 14.40 LA Volume LA Length A4C 5.4 cm LA Length A2C 5.9 cm LA Area A4C s 26.34 cm2 LA Area A2C s 25.05 cm2 LA Vol A4C A-L 108.04 mL LA Vol A2C A-L 89.70 mL LA Vol Biplane A-L 102.7 mL LA Vol/BSA A4C A-L LA Vol/BSA A2C A-L LA Vol/BSA BP A-L 41.3 mL/m2 LA Vol A4C MOD 101.7 mL LA Vol A2C MOD 83.8 mL LA Vol BP MOD 95.8 mL RA Volume RA Area A4C 15.3 cm2 RA ESV A4C (A-L) 35.0mL RA Vol/BSA A4C A-L RA Length A4C 5.7 cm RA ESV A4C (MOD) 33.1mL LV Diastology MV E' medial 0.082 (>0.07 m/s) MV E Vmax 0.79 (0.4-1.3 m/s) MV E/E' MED 9.62 (<14) MV A Vmax 0.50 (0.4-1.3 m/s) MV E' lateral 0.089 (>0.1 m/s) E/A Ratio 1.6 MV E/E' LAT 8.92 (<14) MV E' Average 0.086 m/s MV E/E'(average) 9.26 Aortic Valve AoV Vmax 1.26 m/s LVOT Vmax 0.94 m/s AoV Peak Grad 6.4 mmHg LVOT Peak Grad 3.6 mmHg AoV Area (Vmax) 2.35 cm2 LVOT VTI 0.220 m AoV VTI 0.309 m LVOT Mean Grad 1.9 mmHg AoV Mean Killian. 0.85 m/s LVOT SV 68.85 mL AoV Mean Grad 3.3 mmHg LVOT Diam s 1.95 cm AoV Area (VTI) 2.23 cm2 Velocity Ratio 0.75 Mitral Valve MV DT 198 (160-240 msec) MV Vmax TIPS 0.89 m/s MV Mean Grad 1.3 (<2mmHg) MV VTI 0.275 m Pulmonary Valve RVOT Vmax 0.64 m/s RVOT Peak Gr. 1.6 mmHg RVOT VTI 0.161 m RVOT Mean Gr. 1.0 mmHg Tricuspid Valve RA Pressure 3.00 mmHg TR Vmax 3.22 m/s TV S' 0.20 m/s TR Peak Grad 41.4 mmHg RVSP (TR) 44.5 mmHg
== END ==
PROVIDERS: PCP Family Medicine; Visit Provider Surgery
DX: I27.20 Pulmonary hypertension, unspecified (principal)
CPT/HCPCS: 93306

== ENCOUNTER 2023-05-17 07:34 | Day surgery (SDC) | payer MEDICARE, SELFPAY ==
--- NOTE | 2023-05-17 05:17 | W.ANESPRE ---
General Info Date of Service Date Performed: 05/17/23 Height: 6 ft 2.5 in Weight: 126.552 kg Body Mass Index (BMI): 35.3 Surgical Procedure: Operation Date: 05/17/23 09:05 Proposed Procedure Side Surgeon p Colonoscopy Robin Bustamante MD Meds Allergies and Home Medications Allergies Allergy/AdvReac Type Severity Reaction Status Date / Time No Known Allergies Allergy Verified 05/17/23 08:00 Home Medication Medication Instructions Recorded aspirin 81 mg tablet,delayed 81 mg PO DAILY 11/26/12 release (Aspir-) calcium carbonate 600 mg calcium 600 mg PO DAILY 11/26/12 (1,500 mg) tablet (Caltrate 600) cholecalciferol (vitamin D3) 25 25 mcg PO DAILY 04/25/22 mcg (1,000 unit) tablet (Vitamin D3) albuterol sulfate 90 mcg/actuation 2 puff inhalation Q8H #108 grams 10/05/22 aerosol inhaler apixaban 5 mg tablet (Eliquis) 5 mg PO BID #180 tabs 10/05/22 atorvastatin 20 mg tablet 20 mg PO DAILY #90 tabs 10/05/22 chlorthalidone 25 mg tablet 25 mg PO DAILY #90 tab-caps 10/05/22 folic acid 1 mg tablet 1 mg PO DAILY #100 tab-caps 10/05/22 losartan 100 mg tablet (Cozaar) 100 mg PO DAILY #90 tab-caps 10/05/22 metoprolol succinate 100 mg 100 mg PO DAILY #90 tabs 10/05/22 tablet,extended release 24 hr potassium chloride 20 mEq 20 meq PO BID #180 tab-caps 04/10/23 tablet,extended release bisacodyl 5 mg tablet,delayed 5 mg PO ONCE colonscopy bowel prep 04/25/23 release (Dulcolax (bisacodyl)) #4 tabs polyethylene glycol 3350 17 238 g PO ONCE colonoscopy prep 04/25/23 gram/dose oral powder #238 grams Current Visit Medications: Current Medications Generic Name Dose Route Start Last Admin Trade Name Freq PRN Reason Stop Dose Admin Ringer's Solution 1,000 mls @ 80 mls/hr 05/17/23 06:00 IV 06/15/23 23:59 INFUSION [facility] IV Miscellaneous Supplies 1 each 05/17/23 06:00 Iv Access IV 06/15/23 23:59 DIRECTED PITER Sodium Chloride 0 ml 05/17/23 06:00 Normal Saline Flush 10 Ml Syr IV 06/15/23 23:59 PRN PRN Sodium Chloride 0 ml 05/17/23 06:00 Normal Saline 10 Ml Vial IJ 06/15/23 23:59 DIRECTED PRN Sterile Water 0 ml 05/17/23 06:00 Water,Injection,Sterile 10 Ml Vial IJ 06/15/23 23:59 DIRECTED PRN PFSH Active Problems Active Problems: Problem Status Onset Code Bronchiolectasis J47.9 Pulmonary hypertension I27.20 History of total right knee replacement 04/26/22 Z96.651 Status post total left knee replacement 03/08/22 Z96.652 Actinic keratoses 09/07/17 L57.0 Hypercholesterolemia 09/06/16 E78.00 Male erectile disorder N52.9 Osteopenia 05/11/03 M85.80 Tubular adenoma 10/20/15 D36.9 Prostatitis N41.9 Chronic left shoulder pain 08/11/15 M25.512, G89.29 Arthritis M19.90 Polyneuropathy G62.9 BPH (benign prostatic hyperplasia) N40.0 Edema R60.9 Leg edema, right R60.0 Cellulitis L03.90 Consolidation of right upper lobe of lung J18.1 Pneumonia J18.9 DVT (deep venous thrombosis) I82.409 Medical History Medical History Hx of fracture of left hip 3 screws DVT (deep venous thrombosis) (R) Abnormal endocrine laboratory test finding Kidney stone Acute bilateral low back pain Abnormal laboratory test elevated MCV 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), electrolyte disorder associated w/alcohol Prostatitis in the past Arthritis Shoulder pain 08/01/13 replacement 11/2014 Chronic left shoulder pain 08/11/15 Hypokalemia 11/15/16 Essential hypertension (07/31/13) Osteopenia Folate deficiency Essential hypertension Male erectile disorder Medical History Comments:: very hard of hearing Surgical History Surgical History Status post hernia repair right inguinal hernia ~20s Closed fracture of unspecified part of neck of femur 05/11/03 left femoral neck fracture [facility] [place] ankle repair R ANKLE RECONSTRUCTION Rotator Cuff Repair RIGHT SHOULDER-VIKAS CAP LEFT SHOULDER-VIKAS CAP 11/26 Colonoscopy - MAC (~2005) neg Tobacco Smoking/Tobacco Use Status: Never Passive smoking exposure: Yes Second hand exposure: Yes Alcohol Alcohol Intake: former Substance Use Substance use: Never Substance use type: does not use Vital Signs and Lab Results Vital Signs Most Recent Vital Signs in EMR: Temp Pulse Resp BP Pulse Ox 36.7 C 92 H 16 134/89 98 05/17/23 08:30 05/17/23 08:30 05/17/23 08:30 05/17/23 08:30 05/17/23 08:30 Lab Results Blood Type / Crossmatch: No Data to Display Complete Blood Count: No Data to Display Complete Metabolic Panel: No Data to Display Liver Function Panel: No Data to Display Coagulation Panel: No Data to Display Cardiac Panel: No Data to Display Arterial Blood Gas: No Data to Display Venous Blood Gas: No Data to Display Pancreas Panel: No Data to Display Thyroid Panel: No Data to Display Infectious Disease: No Data to Display Blood Cultures: No Data to Display Toxicology Panel: No Data to Display Imaging and Studies Imaging and Studies Study information below may be from another EMR and interpreted by another provider. Please see original notes in EMR for more complete details. EKG Summary: 08/31: Sinus rhythm...normal P axis, V-rate 60- 99 Atrial premature complexes...SV complexes w/ short R-R intvls Low voltage, precordial leads...precordial leads <1.0mV Echocardiogram Summary: 05/04: LVEF 57%, trace AR, moderate MR, RVSP 44 mmhg. 05/02: Normal left ventricular wall thickness and chamber size. Estimated ejection fraction is 60 to 65%. Wall motion is normal Normal right ventricular size and systolic function Both atria are normal in size There is no structural or hemodynamically significant valvular disease Mildly dilated ascending aorta measuring 3.91 cm Estimated right ventricular systolic pressure is 32 mmHg Anesthesia Assessment and Plan Anesthesia History Personal History: No History of Anesthesia Complications Family History: No Family History of Anesthesia Complications Exercise Tolerance Exercise Tolerance: Metabolic Equivalents>4 Cardiac & Pulmonary Exam Cardiac Exam: Normal S1/S2 Heart Sounds Pulmonary Exam: Clear Bilateral Breath Sounds Implantable Cardiac Device Does patient have a Pacemaker or an ICD?: No Airway Exam Known Difficult Airway: No Mallampati Class: 2 Mouth Opening: Normal (> 3cm) Thyromental Distance: Greater than 3 cm Neck Range of Motion: Full ROM Neck Circumference: Normal Teeth Condition: Removable Dentures/Plates Upper and Removable Dentures/Plates Lower ASA Classification ASA Score: ASA 3 Emergency Case?: No NPO Status NPO Status: NPO Clears >2 hours, Solids >8 hours Anesthesia Plan Resuscitation Status: Full Code Anesthesia Technique: General Anesthesia Airway Planned: Natural Airway Monitors Used: Standard Monitors Preoperative Comments:: 76 yo male for colo. Sig PMHx: HTN (losartan, metoprolol, chlorthalidone), pHTN (RVSP 44 on last echo), bronchiolectasis, polyneuropathy, DVT/PE (apixaban), BPH, never smoker, former EtOH. Previous Anes: - bronch with maravilla 2 grade 1. - TKA x 2, spinal 2 mL 3% chloroprocaine, low dose prop.
[2023-05-17] MEDS: Lactated Ringers 1,000 ML 80 ML IV (08:23)
[2023-05-17 08:30] VITALS: BP 134/89; PULSE 92; RESP 16; TEMP 36.7; O2SAT 98
[2023-05-17 08:37] VITALS: BMI 35.3
--- NOTE | 2023-05-17 09:05 | BOWEL_PTH ---
PATIENT: Torsten Portillo LOC: [facility] U#:[id number] AGE/SX: 77/M ROOM: RE05/17/[address]: Robin Bustamante : 1945 BED: DIS: 05/17/2023 SPEC #: [id number] RECD: 05/17/23 12:42 STATUS: EFREN REVadim #: [id number] SHAWN: 05/17/23 09:[address]: Robin Bustamante DEPT: Surgical Specimen RECD BY: Cindy Lima ENTERED: 05/17/23 12:43 SP TYPE: Bowel OTHR DR: Adrienne Garcia MD, DC Tissues: 1 - BIOPSY BOWEL 2 - BIOPSY BOWEL 3 - BIOPSY BOWEL Procedures: GROSS AND MICRO LEVEL 4 Comments: [id number]
--- NOTE | 2023-05-17 09:28 | W.COLOREPORT ---
Date of service: 05/17/23 Time of Service: 09:28 Colonoscopy Report Procedure: PROCEDURES PERFORMED: 1. Colonoscopy with cold forceps polypectomy x3 2. Cold forceps polypectomy x 2 PREOPERATIVE DIAGNOSIS: Surveillance colonoscopy, colon polyps POSTOPERATIVE DIAGNOSIS: Colon polyps, grade 2 internal hemorrhoids SURGEON: Carin Bustamante MD INDICATION for procedure: The patient is a 77-year-old man due for surveillance colonoscopy. He has no symptoms. He has no family history of colon cancer. He had a tubular adenoma removed on last colonoscopy. FINDINGS: The terminal ileum was normal. In the cecum/proximal ascending colon are 3 separate sessile 2-3 mm polyps that appear adenomatous and they were removed with cold forceps technique and sent together. In the transverse colon a 5-7 mm very flat polyp was removed with hot snare technique. In the descending/proximal sigmoid colon another 3-5 mm sessile polyp was removed with hot snare technique. No diverticular disease was seen. Grade 1?2 internal hemorrhoids are noted. SURVEILLANCE interval/FOLLOW-UP: 3 years EBL: Minimal COMPLICATIONS: None QUALITY of prep: Excellent Procedure in detail: The patient gave written consent and was in agreement with the indications, the potential risks as well as the benefits of the procedure. He was taken to the endoscopy suite and laid in the left lateral decubitus position. A timeout was performed and anesthesia was administered which was tolerated well. I started the procedure. Digital rectal and visual examination was performed and grossly within normal limits. A well-lubricated flexible colonoscope was then introduced and passed without any notable difficulty all the way to the cecum identified by the ileocecal valve and the appendiceal orifice. The scope was then slowly withdrawn with the above-noted findings. The patient tolerated the procedure well and was taken to the PACU in hemodynamically stable condition.
--- NOTE | 2023-05-17 09:34 | W.PM.DSUDISC ---
Date of service: 05/17/23 Time of Service: 10:10 Discharge Plan Disposition Patient Disposition: Home Condition: Good Discharge Details Attending Provider: Robin Bustamante Primary Care Provider: Adrienne Garcia Home Meds and New Rx's Prescriptions: No Action potassium chloride 20 mEq tablet extended release 20 meq PO BID Qty: 180 4RF polyethylene glycol 3350 17 gram/dose powder 238 g PO ONCE Qty: 238 0RF Rx Instructions: take per colonoscopy instructions bisacodyl [Dulcolax (bisacodyl)] 5 mg tablet,delayed release (DR/EC) 5 mg PO ONCE Qty: 4 0RF Rx Instructions: take per colonoscopy instructions aspirin [Aspir-81] 81 MG tablet,delayed release (DR/EC) 81 mg PO DAILY calcium carbonate [Caltrate 600] 600 MG tablet 600 mg PO DAILY Rx Instructions: REPORTS TAKING 1.5GM TAB DAILY. metoprolol succinate 100 mg tablet extended release 24 hr 100 mg PO DAILY Qty: 90 3RF Rx Instructions: in place of atenolol albuterol sulfate 90 mcg/actuation HFA aerosol inhaler 2 puff inhalation Q8H Qty: 108 4RF Eliquis 5 mg tablet 5 mg PO BID Qty: 180 4RF atorvastatin 20 mg tablet 20 mg PO DAILY Qty: 90 4RF chlorthalidone 25 mg tablet 25 mg PO DAILY Qty: 90 4RF folic acid 1 mg tablet 1 mg PO DAILY Qty: 100 12RF losartan [Cozaar] 100 mg tablet 100 mg PO DAILY Qty: 90 4RF cholecalciferol (vitamin D3) [Vitamin D3] 25 mcg (1,000 unit) Tablet 25 mcg PO DAILY Discharge Instructions Additional Instructions: FINDINGS: A number of polyps were removed today. There is nothing to worry about but it does mean you should have another colonoscopy in 3 years. You can restart your blood thinning medicine tomorrow. Stand Alone Forms: Anesthesia Discharge Inst., Colonoscopy Post Instructions, Brenton Boucher (DSU) Activity:: Activity as Tolerated Diet:: As Tolerated
[2023-05-17 09:35] VITALS: BP 98/67; PULSE 75; RESP 16; TEMP 36.7; O2SAT 95
--- NOTE | 2023-05-17 09:38 | W.ANESPOSTOP ---
Postoperative Evaluation Date, Time and Location Date Performed: 05/17/23 Time Performed: 09:38 Patient Location: Day Surgery Unit Vital Signs Most Recent Imported Vital Signs: Most Recent Vital Signs Temp Pulse Resp BP Pulse Ox 36.7 C 75 16 98/67 L 95 05/17/23 09:35 05/17/23 09:35 05/17/23 09:35 05/17/23 09:35 05/17/23 09:35 Pain Score Most Recent Pain Score: Most Recent Pain Score Pain Level 0 05/17/23 09:35 Assessment Mental Status: Awake (Alert & Oriented to Patient Baseline) Airway and Respiratory Function: Patent airway with normal (patient baseline) respiratory exam Cardiovascular Function: Hemodynamically Stable Hydration Status: Adequately Hydrated Nausea & Vomiting: No Nausea or Vomiting Pain: Pt. Denies Any Pain Peripheral Nerve Block: Patient did not receive a nerve block
[2023-05-17 09:57] VITALS: BP 114/71; PULSE 68; RESP 16; TEMP 36.7; O2SAT 96
== END 2023-05-17 07:35 | disposition home or self-care (01) ==
PROVIDERS: PCP Family Medicine; Visit Provider Student in an Organized Health Care Education/Training Program
PROC: 0DJD8ZZ Inspection of Lower Intestinal Tract, Via Natural or Artificial Opening Endoscopic (ICD-10-PCS; CPT 45378; principal; 2023-05-17 09:00)
DX: Z12.11 Encounter for screening for malignant neoplasm of colon (principal); D12.0 Benign neoplasm of cecum; K64.0 First degree hemorrhoids; I27.20 Pulmonary hypertension, unspecified; N40.0 Benign prostatic hyperplasia without lower urinary tract symptoms; D12.3 Benign neoplasm of transverse colon; D12.4 Benign neoplasm of descending colon
CPT/HCPCS: 45385; 45380; 00123; 88305; J2001

== ENCOUNTER → 2023-10-18 01:42 | Outpatient (CLI) | payer MEDICARE, SELFPAY ==
--- NOTE | 2023-10-18 08:00 | DI.CT_ITS ---
Exam(s) CT CHEST WO EXAM: CT CHEST WO CLINICAL HISTORY: abnl CT chest,infiltrate on xray,r93.89 TECHNIQUE: Imaging Protocol: Axial computed tomography images with coronal and sagittal reformatted images were created and reviewed CONTRAST MATERIAL: Intravenous: Omnipaque 350 Contrast volume:structured data ml. COMPARISON: CT CT CHEST WO from 02/15/[address] CHEST WO from 04/18/2023 FINDINGS: Pulmonary parenchyma: Cyst stable 7 millimeter nodule posterior right lower lobe. Stable scarring r ight upper lobe stable skull scarring along the right minor fissure.. No consolidation. No dominant measurable mass. Tracheobronchial tree: Stable mild bronchiectasis on inferomedial right upper lobe no mucous plugging . Mediastinum and Stephanie: No dominant adenopathy or fluid collection. Pleura: No effusion. No pneumothorax. Heart: The heart is mildly dilated. Moderate to severe coronary artery calcifications are seen. Aorta: Thoracic aorta non-dilated. Mild atherosclerotic changes. Upper abdomen: No acute findings.. Bones: Degenerative changes in the spine. Bilateral shoulder prostheses. Soft tissues: Unremarkable. IMPRESSION: Stable benign right pulmonary findings. No acute abnormality. RADIATION DOSE DELIVERED: 753.76mGy.cm Total DLP DATA REPOSITORY: All CT scans at this facility are submitted to the National Radiology Data Registry (NRDR) Dose Index Registry (DIR) with the [employer] (ACR). RADIATION OPTIMIZATION: All CT scans at this facility use at least one of these dose optimization te chniques: automated exposure control; mA and/or kV adjustment per patient size (includes targeted exa ms where dose is matched to clinical indication); or iterative reconstruction.
== END ==
PROVIDERS: PCP Family Medicine; Visit Provider Family Medicine
DX: R93.89 Abnormal findings on diagnostic imaging of other specified body structures (principal)
CPT/HCPCS: 71250

== ENCOUNTER 2024-03-22 02:02 | Outpatient (CLI) | payer MEDICARE, SELFPAY ==
[2024-03-22 12:26] LABS: HCT 42.1 % (40.0-50.0); HGB 13.1 g/dL (13.5-17.5); MCH 26.4 pg (27.0-33.0); MCHC 31.1 % (32.0-36.0); MCV 85 fL (80-95); MPV 9.5 fL (8.0-11.0); Platelet Count 285 10^3/uL (130-400); RBC 4.96 10^6/uL (4.36-5.78); RDW 16.8 % (11.8-14.1); RDW-SD 52.4 fL; WBC 6.12 10^3/uL (4.4-10.8)
[2024-03-22 12:39] LABS: Hemoglobin A1C 6.1 % (<5.7)
[2024-03-22 12:47] LABS: ALT 40 U/L (16-63); AST 30 U/L (15-37); Albumin 3.6 g/dL (3.4-5.0); Alkaline Phosphatase 70 U/L (46-116); Anion Gap 8.3 mmol/L (3-11); BUN 16 mg/dL (7-18); Bilirubin, Total 1.03 mg/dL (0.2-1.0); CO2 30.7 mmol/L (21.0-32.0); CREATININE 1.3 mg/dL (0.70-1.30); Chloride 105 mmol/L (98-107); Estimated GFR 56.58 (mL/min/1.73m2); Glucose 106 mg/dL (74-106); Potassium 3.4 mmol/L (3.5-5.1); Sodium 144 mmol/L (136-145); TSH (W/Ref FT4) 3.44 uIU/mL (0.36-3.74); Total Protein 7.1 g/dL (6.4-8.2)
[2024-03-22 18:12] LABS: PSA, Diagnostic 1.6 ng/mL (<=6.5)
== END 2024-03-22 02:03 | disposition home or self-care (01) ==
LOC: LOS 02:02
PROVIDERS: PCP Family Medicine; Visit Provider Family Medicine
DX: N40.0 Benign prostatic hyperplasia without lower urinary tract symptoms (principal); E03.9 Hypothyroidism, unspecified; I10 Essential (primary) hypertension; R73.09 Other abnormal glucose; G62.9 Polyneuropathy, unspecified; Z79.01 Long term (current) use of anticoagulants
CPT/HCPCS: 36415; 80053; 85027; 83036; 84153; 84443

== ENCOUNTER 2024-04-04 11:38 | Outpatient (CLI) | payer MEDICARE, SELFPAY ==
--- NOTE | 2024-04-04 10:30 | DI.RAD_ITS ---
Exam(s) XR KNEE RT 2V AP,LAT EXAM: XR KNEE RT 2V AP,LAT CLINICAL HISTORY: ANNUAL F/U R TKA. TECHNIQUE: 2D digital imaging was performed. Two images were obtained. AP and lateral views were ob tained. COMPARISON: CR XR STANDING ALIGNMENT from 04/03/2023 CR XR KNEE RT 2V AP,LAT from 04/03/2023 FINDINGS: BONES: There are stable post operative changes of a right total knee replacement present. No fractur e or dislocation. JOINTS: The orthopedic hardware is in good position. No evidence of hardware loosening. SOFT TISSUE: Vascular calcifications are present. IMPRESSION: Stable right total knee arthroplasty. DATA REPOSITORY: RADIATION DOSE DELIVERED:
--- NOTE | 2024-04-04 10:45 | DI.RAD_ITS ---
Exam(s) XR KNEE LT 2V AP,LAT EXAM: XR KNEE LT 2V AP,LAT CLINICAL HISTORY: ANNUAL F/U L TKA. TECHNIQUE: 2D digital imaging was performed. Two images were obtained. AP and lateral views were ob tained. COMPARISON: CR XR STANDING ALIGNMENT from 04/03/2023 CR XR KNEE LT 2V AP,LAT from 04/03/2023 FINDINGS: BONES: There are stable post operative changes of a left total knee arthroplasty present. No fractur e or dislocation. JOINTS: The orthopedic hardware is in good position. No evidence of hardware loosening. SOFT TISSUE: Atherosclerotic calcification is present. IMPRESSION: Stable left total knee arthroplasty. DATA REPOSITORY: RADIATION DOSE DELIVERED:
== END 2024-04-04 11:39 | disposition home or self-care (01) ==
LOC: DIORS 11:39
PROVIDERS: PCP Family Medicine; Visit Provider Student in an Organized Health Care Education/Training Program
DX: Z47.1 Aftercare following joint replacement surgery (principal); Z96.651 Presence of right artificial knee joint; Z96.652 Presence of left artificial knee joint
CPT/HCPCS: 99213; 73560

== ENCOUNTER 2024-05-07 11:29 | Outpatient (CLI) | payer MEDICARE, SELFPAY ==
--- NOTE | 2024-05-07 11:15 | RT.EKG_ITS ---
APPROVED REPORT Exam: Resting ECG Reason for Exam: Tachycardia Patient Location: O HR:111 bpm ECG Measurements Heart Rate 111 AXIS VT [id number] P [id number] QRSd 89 QRS 58 QT 403 T 60 QTc 548 Conclusion Atrial fibrillation...V-rate 111-112, irreg A-activity Borderline low voltage, extremity leads...all extremity leads <0.6mV Prolonged QT interval...QTc >500mS May be sinus tachycardia with first-degree AV block
== END 2024-05-07 11:30 | disposition home or self-care (01) ==
LOC: DI.CM 11:29
PROVIDERS: PCP Family Medicine; Visit Provider Family Medicine
DX: R00.0 Tachycardia, unspecified (principal)
CPT/HCPCS: 93010

== ENCOUNTER 2024-05-13 04:52 | Outpatient (CLI) | payer MEDICARE, SELFPAY ==
[2024-05-13] MEDS: Inhaler, Assist Device 1 EACH MC (17:16)
[2024-05-13] MEDS: Levalbuterol HFA 15 GM INH 4 PUFF IH (17:16)
--- NOTE | 2024-05-25 11:35 | W.PFT ---
Date of service: 05/13/24 Time of Service: 14:50 Pulmonary Function Test Result Indications: Pulmonary HTN Interpretation Spirometry: There is no airflow limitation. No bronchodilator response. Lung Volumes: Normal lung volumes Diffusion Capacity: Normal diffusion Airway Pressure: Normal airways resistance Impression Normal pulmonary function testing Clinical Correlation therefore is recommended.
== END 2024-05-13 04:53 | disposition home or self-care (01) ==
LOC: RT 04:53
PROVIDERS: PCP Family Medicine; Visit Provider Family Medicine
DX: I27.20 Pulmonary hypertension, unspecified (principal)
CPT/HCPCS: 36415; 85027; 86803; 94060; 94726; 94729; 82607

== ENCOUNTER 2024-05-13 13:04 | Outpatient (CLI) | payer MEDICARE, SELFPAY ==
[2024-05-13 12:24] LABS: HGB 13.9 g/dL (13.5-17.5); MCH 27.2 pg (27.0-33.0); MCHC 31.6 % (32.0-36.0); MCV 86 fL (80-95); MPV 9.1 fL (8.0-11.0); Platelet Count 311 10^3/uL (130-400); RBC 5.11 10^6/uL (4.36-5.78); RDW 15.1 % (11.8-14.1); RDW-SD 47.6 fL
[2024-05-13 13:04] LABS: Vitamin B12 354 pg/mL (193-986)
[2024-05-13 18:45] LABS: Hepatitis C Ab w Rflx HCV PCR Negative (Negative)
== END 2024-05-13 13:05 | disposition home or self-care (01) ==
LOC: LOS 13:05
PROVIDERS: PCP Family Medicine; Visit Provider Family Medicine
DX: E53.8 Deficiency of other specified B group vitamins (principal); Z79.01 Long term (current) use of anticoagulants
CPT/HCPCS: 36415; 85027; 86803; 82607

== ENCOUNTER 2024-05-14 01:02 | Outpatient (CLI) | payer MEDICARE, SELFPAY ==
--- NOTE | 2024-05-14 07:00 | DI.CT_ITS ---
Exam(s) CT CHEST WO EXAM: CT CHEST WO CLINICAL HISTORY: SOB,consolidatiojn rul of lung,pulmonary hypertension,j18.1,I27.20. TECHNIQUE: Imaging protocol: Axial computed tomography images were obtained and coronal and sagittal reformatted images were created and reviewed. Computer aided detection (CAD) was utilized. CONTRAST MATERIAL: Noncontrast COMPARISON: CT CT CHEST WO from 02/15/[address] CHEST WO from 10/18/2023 FINDINGS: Pulmonary parenchyma: No consolidation. Stable right upper lobe scarring and bronchiectasis.. Stabl e 7 millimeter ground-glass nodule posterior right lower lobe. Two other other tiny nodules in the r ight upper and lower lobes are unchanged. Interstitial changes: None. Emphysema: None. Pleura: No effusion or pneumothorax. Heart: The heart is mildly to moderately dilated. The coronary arteries show severe calcifications. Aorta: Thoracic aorta non-dilated. Mild atherosclerotic changes. Lymph nodes: No enlarged lymph nodes. Bones: Bilateral shoulder prostheses. Degenerative changes are seen. No evidence of compression f racture. Upper abdomen: Unremarkable. Soft tissues: Unremarkable. IMPRESSION: Stable 7 millimeter nodule right lower lobe. Stable right upper lobe scarring with mild bronchiectas is. No acute abnormalities. RADIATION DOSE DELIVERED: 358.68mGy.cm Total DLP 358.68mGy.cm Total DLP DATA REPOSITORY: All CT scans at this facility are submitted to the National Radiology Data Registry (NRDR) Dose Index Registry (DIR) with the [employer] (ACR). RADIATION OPTIMIZATION: All CT scans at this facility use at least one of these dose optimization te chniques: automated exposure control; mA and/or kV adjustment per patient size (includes targeted exa ms where dose is matched to clinical indication); or iterative reconstruction.
== END 2024-05-14 01:22 ==
LOC: DI 01:02
PROVIDERS: PCP Family Medicine; Visit Provider Family Medicine
DX: J18.1 Lobar pneumonia, unspecified organism (principal)
CPT/HCPCS: 71250

== ENCOUNTER 2024-05-17 00:24 | Outpatient (CLI) | payer MEDICARE, SELFPAY ==
--- NOTE | 2024-05-17 06:45 | DI.US_ITS ---
APPROVED REPORT EXAM: Comprehensive 2D, Doppler, and color-flow Echocardiogram Patient Location: Out-Patient [employer] Salesperson: Sabina Rios RDCS (AE) Indications: Pulmonary HTN, Valve problem Other Information Study Quality: Fair. Technically limited study due to body habitus. Conclusion Normal left ventricular wall thickness and chamber size. Ejection fraction is 40 to 45%. There is g lobal hypokinesis Normal right ventricular size and function Left atrium is moderately dilated. Right atrial size is normal Aortic valve is trileaflet and sclerotic without stenosis or regurgitation Normal mitral valve with mild to moderate regurgitation Estimated right ventricular systolic pressure is 32 mmHg Ascending aorta measures 3.71 cm Wall motion Left Ventricle The left ventricle is normal size. Left ventricular systolic function is moderately decreased. There is normal left ventricular wall thickness. There is global hypokinesis of the left ventricle. There i s no ventricular septal defect visualized. LVEF is 40-45%. Right Ventricle Right ventricle is grossly normal in size. Right ventricular systolic function is grossly normal. Atria Left atrium is moderately dilated. The right atrium size is normal. The interatrial septum is intact with no evidence for an atrial septal defect. Aortic Valve The Aortic valve is sclerotic. Aortic valve is trileaflet. There is no aortic valvular stenosis. No aortic regurgitation is present. Mitral Valve The mitral valve is normal in structure. No evidence of mitral valve stenosis. Mild to moderate osvaldo l regurgitation. Tricuspid Valve The tricuspid valve is normal in structure. There is no tricuspid valve stenosis. Trace to mild tricu spid regurgitation. The RVSP is 32.3 mmHg. Pulmonic Valve The pulmonary valve is normal in structure. There is no pulmonic valvular stenosis. There is no pulmo sarah beth valvular regurgitation. Great Vessels The aortic root is normal in size. The ascending aorta is mildly dilated. IVC is normal in size and c ollapses >50% with inspiration. Pericardium There is no pericardial effusion. 2D Dimensions IVSD d PLAX 1.10 cm M: 0.6-1.2 Ao Root d 3.75 cm M: 3.1 - 3.7 LVPW d PLAX 1.10 cm M: 0.6 - 1.2 Ao Asc Diam d 3.71 cm M: 2.6 - 3.4 LVID d PLAX 5.00 cm M: 4.2 - 5.8 LVDs 4.00 cm M: 2.5 - 4.0 LV EF Teichholz 40.1 % FS 19.60 % LV EDV (Teich) 116.8 mL LV ESV (Teich) 70.0 mL M-Mode TAPSE 2.03 cm (M/F) >1.7 Auto EF LV EDV A4C 132.1 mL LV EDV A2C 131.0 mL LV EDV BP 130.2 mL LV ESV A4C 79.3 mL LV ESV A2C 78.6 mL LV ESV BP 77.9 mL LVEF(%) A4C 40.0 % LVEF(%) A2C 40.0 % LVEF(%) BP 40.2 % LV SV A4C 52.8 ml LV SV A2C 52.4 ml LV SV BP 52.3 ml LV CO A4C 5.8 L/min LV CO A2C 5.7 L/min LV CO BP 5.8 L/min HR A4C 110.10 BPM HR A2C 108.77 BPM LV EDV Index (BP) LA Volume LA Length A4C 5.2 cm LA Length A2C 5.1 cm LA Area A4C s 21.69 cm2 LA Area A2C s 22.92 cm2 LA Vol A4C A-L 77.23 mL LA Vol A2C A-L 86.66 mL LA Vol Biplane A-L 82.0 mL LA Vol/BSA A4C A-L LA Vol/BSA A2C A-L LA Vol/BSA BP A-L 65.1 mL/m2 LA Vol A4C MOD 71.3 mL LA Vol A2C MOD 76.6 mL LA Vol BP MOD 73.7 mL RA Volume RA Area A4C 14.8 cm2 RA ESV A4C (A-L) 38.7mL RA Vol/BSA A4C A-L RA Length A4C 4.8 cm RA ESV A4C (MOD) 36.6mL LV Diastology MV E Vmax 0.95 (0.4-1.3 m/s) Aortic Valve AoV Vmax 0.90 m/s LVOT Vmax 0.87 m/s AoV Peak Grad 3.2 mmHg LVOT Peak Grad 3.1 mmHg AoV Area (Vmax) 2.77 cm2 LVOT VTI 0.157 m AoV VTI 0.165 m LVOT Mean Grad 2.1 mmHg AoV Mean Killian. 0.69 m/s LVOT SV 44.80 mL AoV Mean Grad 2.1 mmHg LVOT Diam s 1.90 cm AoV Area (VTI) 2.71 cm2 AV Regurg Peak Gr. 3.25 mmHg Velocity Ratio 0.97 Mitral Valve MV Vmax TIPS 0.80 m/s MV Mean Grad 1.3 (<2mmHg) MV Area PHT 5.38 cm2 MV VTI 0.127 m Pulmonary Valve PV Vmax 0.86 (0.5-1.5 m/s) RVOT Vmax 0.49 m/s PV Peak Grad 2.9 mmHg RVOT Peak Gr. 1.0 mmHg PV Mean Killian 0.55 m/s RVOT VTI 0.078 m PV Mean Grad 1.4 mmHg RVOT Mean Gr. 0.6 mmHg Tricuspid Valve RA Pressure 3.00 mmHg TR Vmax 2.70 m/s TR Peak Grad 29.2 mmHg RVSP (TR) 32.3 mmHg
== END 2024-05-17 00:44 ==
LOC: DI 00:24
PROVIDERS: PCP Family Medicine; Visit Provider Family Medicine
DX: I27.20 Pulmonary hypertension, unspecified (principal)
CPT/HCPCS: 93306

== ENCOUNTER 2024-05-31 00:10 | Outpatient (CLI) | payer MEDICARE, SELFPAY ==
--- NOTE | 2024-05-31 06:45 | DI.MRI_ITS ---
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 CONTRAST MATERIAL: IV Contrast: 20 ML of Dotarem contrast administered. COMPARISON: No exams were available for comparison FINDINGS: BRAIN: VENTRICLES AND EXTRA AXIAL SPACES: Normal in size and morphology for the patient's age. HEMORRHAGE: None. CEREBRAL PARENCHYMA: No focus of restricted diffusion to suggest acute infarct. No space-occupying le julio identified. There is an area of encephalomalacia involving the posterior right temporal lobe. T his appears represent an old infarct. MIDLINE SHIFT: None. BRAINSTEM/CEREBELLUM: Normal. CALVARIUM: Normal. ENHANCEMENT: No suspicious enhancement identified. VISUALIZED PARANASAL SINUSES/MASTOIDS: Clear. [place] OF BRASHER: Normal flow void. PITUITARY GLAND: Unremarkable. OTHER FINDINGS: ORBITS: ORBITS: Both eyes appear to gaze laterally. The right globe appears to gaze laterally to the right w all. The left globe appears to gaze laterally to the left. The anterior and posterior chambers of th e globes are intact. The retrobulbar fat is unremarkable. Extraocular muscles are unremarkable. OPTIC NERVES: The intracranial and extracranial portions of the optic nerves are within normal limits . Optic chiasm is within normal limits. The infundibulum is unremarkable. No MRI evidence of optic neuritis identified. SOFT TISSUES: The superior opthalmic veins are unremarkable. Remaining soft tissues are unremarkable. OTHER FINDINGS: None. IMPRESSION: 1. No evidence of an acute intracranial infarct, intracranial mass or enhancing lesion. 2. 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 3. No evidence of an orbital or retro-orbital mass. 4. The pituitary gland, optic chiasm and infundibulum are unremarkable. DATA REPOSITORY:
== END 2024-05-31 00:30 ==
LOC: DI 00:11
PROVIDERS: PCP Family Medicine; Visit Provider Family Medicine
DX: H51.21 Internuclear ophthalmoplegia, right eye (principal)
CPT/HCPCS: 70553; 70543

== ENCOUNTER 2024-06-26 02:07 | Outpatient (CLI) | payer MEDICARE, SELFPAY ==
--- NOTE | 2024-06-26 07:09 | DI.US_ITS ---
Exam(s) US CAROTID EXAM: US CAROTID CLINICAL HISTORY: h/o infarct,RT TEMPORAL LOBE,I63.9,. TECHNIQUE: Ultrasound carotids performed using grayscale, color-flow, and spectral Doppler imaging. COMPARISON: No exams were available for comparison FINDINGS: RIGHT CAROTID ARTERY: Plaque: Small amount of soft plaque at the common carotid bulbs and proximal internal carotid artery. Velocity elevation: None. LEFT CAROTID ARTERY: Plaque: Small amount of soft plaque at the common carotid bulbs and proximal internal carotid artery. Velocity elevation: None. VERTEBRAL ARTERIES: Antegrade flow. Measurements: R Bulb: 35.6cm/s PS / 14cm/s ED R CCA: 42.3cm/s PS / 11.2cm/s ED R ECA: 68.5cm/s PS / 12.1cm/s ED R ICA Prox: 32.2cm/s PS / 12cm/s ED R ICA Mid: 57.2cm/s PS / 28.1cm/s ED R ICA Distal: 54.4cm/s PS /28.1cm/s ED R Vert: 33.7cm/s PS / 15cm/s ED R SVR: 1.4 R DVR: 2.5 L Bulb: 42.3cm/s PS / 19cm/s ED L CCA: 44.3cm/s PS / 18.1cm/s ED L ECA: 71.3cm/s PS / 19.6cm/s ED L ICA Prox: 29.7cm/s PS / 15.5cm/s ED L ICA Mid: 40.4cm/s PS / 18.4cm/s ED L ICA Distal: 49.6cm/s PS / 25.5cm/s ED L Vert: 40.7cm/s PS / 12.4cm/s ED L SVR: 1.1 L DVR: 1.4 IMPRESSION: No evidence for hemodynamically significant carotid stenosis. Criteria for Carotid Stenosis: Normal: ICA PSV <125 cm/s no plaque or intimal thickening is visible. <50% stenosis: ICA PSV <125 cm/s and plaque or intimal thickening is visible. 50-69% stenosis: ICA PSV is 125-250 cm/s and plaque is visible. >70% stenosis to near occlusion: ICA PSV >250 cm/s with visible plaque and luminal narrowing. DATA REPOSITORY:
== END 2024-06-26 02:27 ==
LOC: DI 02:07
PROVIDERS: PCP Family Medicine; Visit Provider Family Medicine
DX: I63.9 Cerebral infarction, unspecified (principal)
CPT/HCPCS: 93880

== ENCOUNTER 2025-02-06 12:29 | Outpatient (CLI) | payer MEDICARE, SELFPAY ==
--- NOTE | 2025-02-06 12:15 | RT.EKG_ITS ---
APPROVED REPORT Exam: Resting ECG Reason for Exam: pre op clearance Patient Location: O HR:83 bpm ECG Measurements Heart Rate 83 AXIS NC [id number] P [id number] QRSd 85 QRS 19 QT 381 T 5 QTc 448 Conclusion Atrial fibrillation...V-rate 66-116, irreg A-activity Low voltage, precordial leads...precordial leads <1.0mV
== END 2025-02-06 12:30 | disposition home or self-care (01) ==
LOC: DI.CM 12:29
PROVIDERS: PCP Family Medicine; Visit Provider Family Medicine
DX: Z01.818 Encounter for other preprocedural examination (principal); I48.0 Paroxysmal atrial fibrillation
CPT/HCPCS: 93010

== ENCOUNTER 2025-02-27 00:24 | Outpatient (CLI) | payer MEDICARE, SELFPAY ==
[2025-02-27 14:20] LABS: HCT 36.2 % (40.0-50.0); HGB 11.4 g/dL (13.5-17.5); MCH 26.7 pg (27.0-33.0); MCHC 31.5 % (32.0-36.0); MCV 85 fL (80-95); MPV 9.8 fL (8.0-11.0); Platelet Count 300 10^3/uL (130-400); RBC 4.27 10^6/uL (4.36-5.78); RDW 14.2 % (11.8-14.1); RDW-SD 43.8 fL; WBC 7.17 10^3/uL (4.4-10.8)
[2025-02-27 14:40] LABS: ALT 27 U/L (16-63); AST 24 U/L (15-37); Albumin 3.2 g/dL (3.4-5.0); Alkaline Phosphatase 84 U/L (46-116); Anion Gap 6.7 mmol/L (3-11); BUN 27 mg/dL (7-18); Bilirubin, Total 0.8 mg/dL (0.2-1.0); CO2 31.3 mmol/L (21.0-32.0); Calcium 9.1 mg/dL (8.5-10.1); Calculated LDL 67 mg/dL (<100); Chloride 102 mmol/L (98-107); Cholesterol 128 mg/dL (<200); Estimated GFR 47.36 (mL/min/1.73m2); Glucose 115 mg/dL (74-106); HDL Cholesterol 36 mg/dL (>or=40); Potassium 3.8 mmol/L (3.5-5.1); Sodium 140 mmol/L (136-145); Total Protein 6.7 g/dL (6.4-8.2); Triglyceride 125 mg/dL (<150)
[2025-02-27 15:00] LABS: Hemoglobin A1C 6.1 % (<5.7)
[2025-02-28 13:27] LABS: Lab Add On Test DONE
[2025-02-28 13:39] LABS: Iron 26 ug/dL (65-175)
[2025-02-28 13:53] LABS: Ferritin 14 ng/mL (26-388)
== END 2025-02-27 00:25 | disposition home or self-care (01) ==
LOC: LOS 00:25
PROVIDERS: PCP Family Medicine; Visit Provider Family Medicine
DX: I48.91 Unspecified atrial fibrillation (principal); E11.9 Type 2 diabetes mellitus without complications; I10 Essential (primary) hypertension
CPT/HCPCS: 36415; 80053; 80061; 85027; 82728; 83036; 83540

== ENCOUNTER 2025-05-26 10:31 | Outpatient (CLI) | payer MEDICARE, SELFPAY ==
[2025-05-26 15:23] LABS: HCT 46.2 % (40.0-50.0); HGB 14.8 g/dL (13.5-17.5); MCH 29.7 pg (27.0-33.0); MCHC 32.0 % (32.0-36.0); MCV 93 fL (80-95); MPV 10.3 fL (8.0-11.0); Platelet Count 259 10^3/uL (130-400); RBC 4.99 10^6/uL (4.36-5.78); RDW 15.9 % (11.8-14.1); RDW-SD 54.5 fL; WBC 7.28 10^3/uL (4.4-10.8)
[2025-05-26 15:40] LABS: Iron 293 ug/dL (65-175)
[2025-05-26 15:47] LABS: Ferritin 28 ng/mL (11-307)
[2025-05-26 15:55] LABS: ALT 32 U/L (10-49); AST 34 U/L (<34); Albumin 4.2 g/dL (3.2-5.0); Alkaline Phosphatase 86 U/L (46-116); Anion Gap 10 mmol/L (3-11); BUN 19 mg/dL (9-23); Bilirubin, Total 0.9 mg/dL (0.2-1.2); CO2 29.0 mmol/L (20.0-31.0); Calcium 9.4 mg/dL (8.3-10.6); Chloride 103 mmol/L (98-107); Glucose 120 mg/dL (74-106); Potassium 3.8 mmol/L (3.5-5.1); Sodium 142 mmol/L (136-145); Total Protein 6.9 g/dL (5.7-8.2)
== END 2025-05-26 10:32 | disposition home or self-care (01) ==
PROVIDERS: PCP Family Medicine; Visit Provider Family Medicine
DX: D50.9 Iron deficiency anemia, unspecified (principal); I10 Essential (primary) hypertension
CPT/HCPCS: 36415; 80053; 85027; 82728; 83540